=== PATIENT | female | born 1950 | race African-American/Black ===

== ENCOUNTER 2018-12-27 16:56 | Inpatient (IN) | payer OTHER, MEDICAID ==
[~2018-12-27] VITALS: Ht 167.6 cm; Wt 63.5 kg
[~2018-12-27 16:56] MED LIST: ACETAMINOPHEN325 M1 ORAL; AMLODIPINE BESYL5 MG ORAL; BACLOFEN10 MG ORAL; BISACODYL10 M1 RC; COLLAGENASE MC; HIPREX ORAL; LEVAQUIN500 MG ORAL; LEVOFLOXACIN500 MG ORAL; LIDOCAINE VISC100 ML ORAL; LIORESAL20 MG ORAL; MULTIVITAMINS1 EAC2 ORAL; OXYCODONE HCL5 M2 ORAL; OXYCONTIN40 M1 ORAL; PERCOCET 10-321 EACH ORAL; PERCOCET 5-3251 EACH ORAL; ROXICODONE15 MG ORAL; TEGRETOL200 MG ORAL; TEGRETOL200 MG PO; UNOBMED; VANCOMYCIN250 MG/5 M ORAL; VITAMIN D1000 UNI1 ORAL
--- NOTE | 2018-12-27 17:00 | NUR ---
Note undone in EDM - 12/27/18 at 1915 by CIRILO ED Nurse Note: PT BROUGHT IN BY R68 FROM HOME. AOX2 - ORIENTED TO SELF AND PLACE. PER EMS, FAMILY CALLED DUE TO INCREASED ALOC X YESTERDAY. PT UNABLE TO ANSWER QUESTIONS APPROPRAITELY. PT'S VSS. PT PRESENTS WITH PATENT WOODSON CATHETER DRAINING CLOUDY YELLOW URINE.
--- NOTE | 2018-12-27 17:00 | NUR ---
ED Nurse Note: PT BROUGHT IN BY R68 FROM HOME. AOX2 - ORIENTED TO SELF AND PLACE. PER EMS, FAMILY CALLED DUE TO INCREASED ALOC X YESTERDAY. PT UNABLE TO ANSWER QUESTIONS APPROPRAITELY. PT'S VSS. PT PRESENTS WITH PATENT SUPRAPUBIC CATHETER DRAINING CLOUDY YELLOW URINE.
[2018-12-27 17:09] VITALS: BP 124/66
[2018-12-27] MEDS ORDERED: LORazepam Inj 2mg/ml 1ml IV ONE (17:30)
--- NOTE | 2018-12-27 18:03 | NUR ---
ED Nurse Note: LAB AT BEDSIDE FOR BLOOD DRAW.
--- NOTE | 2018-12-27 18:04 | NUR ---
ED Nurse Note: PER VERBAL ORDER FROM DR. LU ATIVAN GIVEN IM INSTEAD OF IV.
--- NOTE | 2018-12-27 18:23 | Diagnostic Imaging Report ---
EXAM: XR Chest, 1 View CLINICAL HISTORY: AMS TECHNIQUE: Frontal view of the chest. COMPARISON: No relevant prior studies available. FINDINGS: Lungs: Reduced lung volumes. Mild left basilar atelectasis. No confluent consolidation. Pleural space: Unremarkable. No pneumothorax. Heart: Unremarkable. Mediastinum: Unremarkable. Bones/joints: No acute fracture. Vasculature: Prominent aortic knob. IMPRESSION: Reduced lung volumes. Mild left basilar atelectasis. No confluent consolidation.
[2018-12-27 18:43] LABS: ANION GAP 9 mmol/L (5-15); BLOOD UREA NITROGEN 21 mg/dL (7-18); CALCIUM 9.5 MG/DL (8.5-10.1); CARBON DIOXIDE 25 MMOL/L (21-32); CHLORIDE 104 MMOL/L (98-107); CREATININE 0.6 MG/DL (0.55-1.30); POTASSIUM 4.4 MMOL/L (3.5-5.1); SODIUM 138 MMOL/L (136-145)
[2018-12-27 18:44] LABS: BASOPHILS % (AUTO) 0.5 % (0.0-2.0); EOSINOPHILS % (AUTO) 2.4 % (0.0-3.0); HEMATOCRIT 30.1 % (37.0-47.0); HEMOGLOBIN 9.6 G/DL (12.0-16.0); LYMPHOCYTES % (AUTO) 16.1 % (20.0-45.0); MEAN CORPUSCULAR VOLUME 81 FL (80-99); PLATELET COUNT 350 K/UL (150-450); RED BLOOD COUNT 3.74 M/UL (4.20-5.40); RED CELL DISTRIBUTION WIDTH 17.5 % (11.6-14.8); WHITE BLOOD COUNT 14.8 K/UL (4.8-10.8)
--- NOTE | 2018-12-27 18:50 | NUR ---
ED Nurse Note: URINE COLLECTED AND SENT TO LAB.
[2018-12-27 18:54] LABS: ALANINE AMINOTRANSFERASE 12 U/L (12-78); ALBUMIN/GLOBULIN RATIO 0.5 (1.0-2.7); ALKALINE PHOSPHATASE 188 U/L (46-116); ASPARTATE AMINO TRANSFERASE 11 U/L (15-37); BILIRUBIN,TOTAL 0.2 MG/DL (0.2-1.0)
--- NOTE | 2018-12-27 19:05 | NUR ---
doris mc [phone]
[2018-12-27 19:06] LABS: APPEARANCE,URINE CLEAR; BILIRUBIN, URINE NEGATIVE (NEGATIVE); COLOR,URINE PALE YELLOW; GLUCOSE, URINE (UA) NEGATIVE (NEGATIVE); KETONES,URINE NEGATIVE (NEGATIVE); LEUKOCYTE ESTERASE ,URINE 3+ (NEGATIVE); NITRITE,URINE NEGATIVE (NEGATIVE); PH,URINE 5 (4.5-8.0); PROTEIN,URINE 2+ (NEGATIVE); UROBILINOGEN,URINE 1 MG/DL (0.0-1.0)
--- NOTE | 2018-12-27 19:15 | NUR ---
ED Nurse Note: Report received from day shift. Knowing Pt needs IV site fro Meds as soon. [facility], will await for the admission orders and paper work. Pt is current fighting with staffs with IV insertion. Pt is VSS, on room air no distress.
--- NOTE | 2018-12-27 19:15 | NUR ---
ED Nurse Note: REPORT GIVEN TO YOLANDA CANNON
--- NOTE | 2018-12-27 20:00 | NUR ---
ED Nurse Note: Pt has stage 2 pressure wound on sacral area, S/P DTI on R heel no open. Cleaned and Pat dry the wounds, wound pictures taken and document. Report wound condition to LAUREN shepard supervisors.
--- NOTE | 2018-12-27 20:26 | Emergency Room Report ---
History of Present Illness General Chief Complaint: Altered Level of Consciousness Source: Family Member, Medical Record, EMS Present Illness HPI 68-year-old female presents ED for evaluation. Patient brought in by EMS from home for increased delirium 1 day. Patient does have dementia but appears to be more confused than baseline. Family told EMS that patient has a superpubic catheter and the urine appears cloudy. States that she was recently treated for a UTI at [place]. Patient normally goes to [facility] but was brought to [place] because of diversion at [facility]. Upon arrival patient is crying, appears confused. Denies chest pain or shortness of breath. No abdominal pain. No fevers or chills. No other aggravating relieving factors. No other associated symptoms Allergies: Coded Allergies: CEPHALEXIN (Verified Allergy, Unknown, 11/19/09) HYDROMORPHONE (Unverified Allergy, Unknown, 12/27/18) INTERFERON BETA-1B (Verified Allergy, Unknown, 11/01/12) COULDN'T WALK AFTER TAKING MEDICATION NITROFURANTOIN (Verified Allergy, Unknown, 11/19/09) SULFA (SULFONAMIDE ANTIBIOTICS) (Unverified Allergy, Unknown, 12/27/18) SULFAMETHOXAZOLE (Verified Allergy, Unknown, 11/19/09) TRIMETHOPRIM (Verified Allergy, Unknown, 11/19/09) Uncoded Allergies: COTRIM (Allergy, Unknown, 12/27/18) Patient History Past Medical History: HTN, asthma, CVA/TIA, dementia Past Surgical History: none Pertinent Family History: none Social History: Denies: smoking, alcohol use, drug use Now: No Immunizations: UTD Reviewed Nursing Documentation: PMH: Agreed; PSxH: Agreed Nursing Documentation-PMH Past Medical History: No History, Except For Hx Cardiac Problems: Yes Hx Hypertension: Yes Hx Asthma: Yes Hx Cancer: No Hx Cerebrovascular Accident: Yes Hx Multiple Sclerosis: Yes Hx Cerebral Palsy: Yes Hx Weakness: Yes - BLE AND LEFT ARM Review of Systems All Other Systems: limited Physical Exam Vital Signs Date Time Temp Pulse Resp B/P (MAP) Pulse Ox O2 Delivery O2 Flow Rate FiO2 12/27/18 16:32 65 16 154/86 Room Air 12/27/18 17:09 98.0 100 Sp02 EP Interpretation: reviewed, normal General Appearance: GCS 15, non-toxic, mild distress, other - confused Head: normocephalic Eyes: bilateral eye normal inspection, bilateral eye PERRL ENT: hearing grossly normal, normal pharynx, no angioedema, normal voice Neck: full range of motion, supple/symm/no masses Respiratory: chest non-tender, lungs clear, crackles, speaking full sentences Cardiovascular #1: regular rate, rhythm, no edema Gastrointestinal: normal bowel sounds, non tender, soft, non-distended, no guarding, no rebound, other - suprapubic catheter Rectal: deferred Genitourinary: no CVA tenderness Musculoskeletal: normal inspection Neurologic: other - delerium Psychiatric: other - delerium Skin: normal inspection Lymphatic: normal inspection Medical Decision Making Diagnostic Impression: Primary Impression: Encephalopathy Additional Impressions: Delirium Acute UTI (urinary tract infection) ER Course Hospital Course 68-year-old female presents with increased delirium, cloudy urine. History of UTI Differential diagnoses include: Pneumonia, UTI, sepsis, dehydration Clinical course Patient placed on stretcher. On campus monitor with stable vitals are ED course. After initial history and physical, I ordered labs, IV fluids, EKG, chest x-ray, blood cultures, UA. Labs - electrolytes ok, noted leukocytosis, lactic ok, UA + bacteria CXR - bibasilar atelectasis IV fluids given. Abx given. Case discussed with Dr Dunn and they agreed to admit patient to their service for further care and support I feel this is a highly complex case requiring extensive working including EKG/ Rhythm strip, Xray/CT/US, Blood/urine lab work, repeat exams while in ED, and administration of strong opiates/narcotics for pain control, admission to hospital or close patient follow up. Diagnosis - encephalopathy, delirium, acute UTI Patient admitted to floor in serious condition Labs Test 12/27/18 18:15 12/27/18 18:50 White Blood Count 14.8 K/UL (4.8-10.8) Red Blood Count 3.74 M/UL (4.20-5.40) Hemoglobin 9.6 G/DL (12.0-16.0) Hematocrit 30.1 % (37.0-47.0) Mean Corpuscular Volume 81 FL (80-99) Mean Corpuscular Hemoglobin 25.7 PG (27.0-31.0) Mean Corpuscular Hemoglobin Concent 31.9 G/DL (32.0-36.0) Red Cell Distribution Width 17.5 % (11.6-14.8) Platelet Count 350 K/UL (150-450) Mean Platelet Volume 6.4 FL (6.5-10.1) Neutrophils (%) (Auto) 78.0 % (45.0-75.0) Lymphocytes (%) (Auto) 16.1 % (20.0-45.0) Monocytes (%) (Auto) 3.0 % (1.0-10.0) Eosinophils (%) (Auto) 2.4 % (0.0-3.0) Basophils (%) (Auto) 0.5 % (0.0-2.0) Sodium Level 138 MMOL/L (136-145) Potassium Level 4.4 MMOL/L (3.5-5.1) Chloride Level 104 MMOL/L (98-107) Carbon Dioxide Level 25 MMOL/L (21-32) Anion Gap 9 mmol/L (5-15) Blood Urea Nitrogen 21 mg/dL (7-18) Creatinine 0.6 MG/DL (0.55-1.30) Estimat Glomerular Filtration Rate > 60 mL/min (>60) Glucose Level 93 MG/DL (74-106) Lactic Acid Level 0.80 mmol/L (0.4-2.0) Calcium Level 9.5 MG/DL (8.5-10.1) Total Bilirubin 0.2 MG/DL (0.2-1.0) Aspartate Amino Transf (AST/SGOT) 11 U/L (15-37) Alanine Aminotransferase (ALT/SGPT) 12 U/L (12-78) Alkaline Phosphatase 188 U/L (46-116) Pro-B-Type Natriuretic Peptide 106 pg/mL (0-125) Total Protein 9.0 G/DL (6.4-8.2) Albumin 3.0 G/DL (3.4-5.0) Globulin 6.0 g/dL Albumin/Globulin Ratio 0.5 (1.0-2.7) Urine Color Pale yellow Urine Appearance Clear Urine pH 5 (4.5-8.0) Urine Specific [place] 1.015 (1.005-1.035) Urine Protein 2+ (NEGATIVE) Urine Glucose (UA) Negative (NEGATIVE) Urine Ketones Negative (NEGATIVE) Urine Blood 5+ (NEGATIVE) Urine Nitrite Negative (NEGATIVE) Urine Bilirubin Negative (NEGATIVE) Urine Urobilinogen 1 MG/DL (0.0-1.0) Urine Leukocyte Esterase 3+ (NEGATIVE) Urine RBC 2-4 /HPF (0 - 2) Urine WBC 5-10 /HPF (0 - 2) Urine Squamous Epithelial Cells Few /LPF (NONE/OCC) Urine Amorphous Sediment Few /LPF (NONE) Urine Bacteria Few /HPF (NONE) Urine Yeast Few /HPF (NONE) Chest X-Ray Diagnostic Results Chest X-Ray Diagnostic Results : Chest X-Ray Ordered: Yes # of Views/Limited/Complete: 1 View Indication: Other EP Interpretation: Yes Interpretation: no pneumothorax, other - bibasilar atelectasis Impression: Other - ?PNA Electronically Signed by: Electronically signed by Teofilo Carroll MD Last Vital Signs Date Time Temp Pulse Resp B/P (MAP) Pulse Ox O2 Delivery O2 Flow Rate FiO2 12/27/18 17:09 98.0 74 22 124/66 100 Room Air Status: improved Disposition: ADMITTED INPATIENT Condition: Serious Referrals: [facility],REFERRING (PCP) Teofilo Carroll MD Dec 27, 2018 20:26
[2018-12-27 20:30] VITALS: BP 132/77
[2018-12-27 20:45] VITALS: BP 105/66
--- NOTE | 2018-12-27 20:50 | NUR ---
ED Nurse Note: Bedside report given to RN Robbie. Pt belongings and skin condition report gven to RN. Pt is current sleeping, VSS, on room air no distress.
--- NOTE | 2018-12-27 22:02 | NUR ---
NURSE NOTES: NURSE NOTES: Received patient from ER at 2044 with dx of altered mental status and UTI under Dr. Dunn. Report received from YOLANDA Patino. Patient is alert and oriented x2. Patient is lethargic. Room air. Vital signs is within normal limit. Sacral stage 3, and bilateral heels dti noted. P200 mattress order was placed. Bilateral heels floating on pillow. Patient has a right suprapubic cath, cloudy urine noted. Abdomen is slightly distended, discoloration noted on the perineal area. Patient has a left hand 22g IV running levoflaxacin 750mg at 150ml/hr. Admission ordered received from . Patient's son called regarding patient and son was updated on patient's condition. Son will come see patient later. Bed in the lowest position, bed alarms active, side rails up x2, call light is within reach. Will continue to monitor.
[2018-12-27] MEDS: D5NS 1,000 ML IV SCH (22:58)
--- NOTE | 2018-12-27 23:00 | NUR ---
NURSE NOTES: Pt admitted from Er in stable condition, vitals stable, room air. Pt admitted with Dx of ALC and dehydration. Pt mumbles and gowns, unable to talk in full sentences. Pt is drowsy. Report received from Sukumar MCGARRY RN. Per Sukumar 2mg of Ativan was given IM at ER. Initial physical assessment performed, pt's upper and lower extremities contracted, Pt is bed bound, pt has sacral wound, right and left heel DTI.Bilta heels floated on a pillow. Pt has skin breakdown on the folds of her arms, legs and groin. Pt has Hx of MRSA and VRE. Pt is on contact isolation. Dr. Dunn was called for admitting orders, Dr. Llamas answered the phone and gave admitting orders. D5 NS running at 75ml/hr. Pt is at risk for fall. Fall precation implemented. Bed locked low in position,side rails up and call light within reach. Bed alarm on. Pt will be monitored, Yoly Gonzalez RN ( preceptee) will be assisting in the care of this patient.
[2018-12-28 00:25] VITALS: BP 149/71
--- NOTE | 2018-12-28 02:00 | NUR ---
NURSE NOTES: Pt is on P200 matrass, bilat heels floated on pillows.
--- NOTE | 2018-12-28 02:39 | NUR ---
NURSE NOTES: Wound care for sacral area and bilateral heels. Sacral wound was cleaned with normal saline, then applied hydrogel and octofoam. Barrier film and octofoam were applied to bilateral heels. Right heel DTI measured 2x3cm, left heel DTI measured 2x2cm. Sacral wound measured [id number]. Unable to upload left heel pictures due to computer technical difficulty. Addendum: 12/28/18 at 0554 by Yoly Gonzalez RN Left heel and abdominal fold pictures were uploaded.
[2018-12-28 04:00] VITALS: BP 104/68
--- NOTE | 2018-12-28 04:30 | NUR ---
NURSE NOTES: Pt was turned and cleaned. Pt was given 4 cups of pudding with HOB elevated. Pt ate well.
[2018-12-28 07:09] LABS: BASOPHILS % (AUTO) 0.2 % (0.0-2.0); EOSINOPHILS % (AUTO) 2.5 % (0.0-3.0); HEMATOCRIT 30.2 % (37.0-47.0); HEMOGLOBIN 9.5 G/DL (12.0-16.0); LYMPHOCYTES % (AUTO) 17.3 % (20.0-45.0); MEAN CORPUSCULAR VOLUME 82 FL (80-99); PLATELET COUNT 322 K/UL (150-450); RED BLOOD COUNT 3.67 M/UL (4.20-5.40); RED CELL DISTRIBUTION WIDTH 17.8 % (11.6-14.8); WHITE BLOOD COUNT 8.8 K/UL (4.8-10.8)
--- NOTE | 2018-12-28 07:26 | NUR ---
HAND-OFF: Report given to YOLANDA Lomeli. Patient is bed, resting.
[2018-12-28 08:00] VITALS: BP 163/81
--- NOTE | 2018-12-28 08:00 | NUR ---
NURSE NOTES: Received patient in bed, resting and alert to name, place and year. Patient denies pain, no signs of respiratory distress. IV intact. Subprapubic catheter intact. Bed in lowest position, call light within reach. Will continue to monitor.
[2018-12-28 08:28] LABS: ANION GAP 10 mmol/L (5-15); BLOOD UREA NITROGEN 17 mg/dL (7-18); CALCIUM 8.7 MG/DL (8.5-10.1); CARBON DIOXIDE 24 MMOL/L (21-32); CHLORIDE 107 MMOL/L (98-107); CREATININE 0.7 MG/DL (0.55-1.30); POTASSIUM 3.9 MMOL/L (3.5-5.1); SODIUM 141 MMOL/L (136-145)
[2018-12-28] MEDS: Vitamin D 1000 IU Tab ORAL SCH (08:43)
--- NOTE | 2018-12-28 08:49 | Diagnostic Imaging Report ---
EXAM: XR Chest, 1 View CLINICAL HISTORY: ALOC TECHNIQUE: Frontal view of the chest. COMPARISON: Chest x-ray, 12/27/18 2796 FINDINGS: Lungs: Hypoventilatory lungs. Bibasilar lung atelectasis. Pleural space: Unremarkable. No pneumothorax. Heart: Cardiomegaly. Mediastinum: Unremarkable. Bones/joints: Unremarkable. IMPRESSION: Hypoventilatory lungs. Bibasilar lung atelectasis. No significant change from prior study.
[2018-12-28] MEDS ORDERED: D5NS 1000ml IV ONE (09:10)
--- NOTE | 2018-12-28 11:34 | NUR ---
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 ACUTE UTI . DELIRIUM VS: BP 154/86, P 65, T 98.0, RR 22, SpO2 100 WBC 14.8, RBC 3.74, Hgb 9.6, Hct 30.1, BUN 21. URINE BLOOD 5+, URINE YEAST FEW CXR IMPRESSION: Reduced lung volumes. Mild left basilar atelectasis. IS:NS x1L IV LORAZEPAM 1mg IV LEVOFLOXACIN 150ml IVPB ADMITTED TO MED/SURG DCP: RETURN HOME
[2018-12-28 12:00] VITALS: BP 134/66
[2018-12-28] MEDS: D5NS 1,000 ML IV SCH (13:39)
--- NOTE | 2018-12-28 15:20 | Consultation ---
History of Present Illness General Date patient seen: Dec 28, 2018 Chief Complaint: Altered Level of Consciousness Present Illness HPI 68 year old female with multiple medical comorbidities who presented to [facility] after family noted altered mental status. At home with family when more delirium. Has suprapubic catheter and family noted more cloudy. In ED noted to have leukocytosis and was admitted for medical care and management. on admission noted to have large sacral decubitus and buttock wounds requiring care. surgery called to evaluate. patient seen, chart reviewed, patient examined. photos taken. Allergies: Coded Allergies: CEPHALEXIN (Verified Allergy, Unknown, 11/19/09) HYDROMORPHONE (Unverified Allergy, Unknown, 12/27/18) INTERFERON BETA-1B (Verified Allergy, Unknown, 11/01/12) COULDN'T WALK AFTER TAKING MEDICATION NITROFURANTOIN (Verified Allergy, Unknown, 11/19/09) SULFA (SULFONAMIDE ANTIBIOTICS) (Unverified Allergy, Unknown, 12/27/18) SULFAMETHOXAZOLE (Verified Allergy, Unknown, 11/19/09) TRIMETHOPRIM (Verified Allergy, Unknown, 11/19/09) Uncoded Allergies: COTRIM (Allergy, Unknown, 12/27/18) Medication History Scheduled Amlodipine Besylate* (Amlodipine Besylate*), 5 MG ORAL BID, (Reported) Baclofen (Baclofen), 10 MG ORAL THREE TIMES A DAY Baclofen* (Baclofen*), 20 MG ORAL THREE TIMES A DAY, (Reported) Bisacodyl (Bisacodyl), 10 MG RC DAILY, (Reported) Cholecalciferol (Vitamin D3)* (Vitamin D*), 1,000 UNIT ORAL DAILY, (Reported) Collagenase Clostridium Hist. (Collagenase), 1 GM MC DAILY, (Reported) Levofloxacin* (Levaquin*), 500 MG ORAL DAILY Multivitamins* (Multivitamins*), 1 TAB ORAL DAILY, (Reported) Vancomycin HCl (Vancomycin HCl), 500 MG ORAL FOUR TIMES A DAY [Hiprex], 1 TAB ORAL BID, (Reported) Scheduled PRN Acetaminophen* (Acetaminophen 325MG Tablet*), 650 MG ORAL Q4H PRN Oxycodone Hcl* (Oxycodone Hcl*), 5 MG ORAL Q4H PRN for For Pain, (Reported) Oxycodone Hcl/Acetaminophen 10-325 Mg Tablet (Percocet 10-325 Mg Tablet*), 1 TAB ORAL Q4H PRN Patient History Limited by: medical condition History Provided By: Medical Record, PMD Healthcare decision maker Resuscitation status Full Code Advanced Directive on File Past Medical/Surgical History Past Medical/Surgical History: (1) Lower urinary tract infectious disease (2) SEPSIS (3) [id number] (4) Lower urinary tract infectious disease (5) [id number] (6) Lower urinary tract infectious disease (7) catheter malfunction (8) uti (9) Lower urinary tract infectious disease (10) neuropathic pain (11) musculoskeletal pain (12) Septicemia (13) Dehydration (14) Constipation (15) Dehydration (16) Pyuria (17) Weakness generalized (18) Multiple sclerosis (19) Suprapubic catheter (20) Trigeminal neuralgia pain (21) HYPOKALEMIA (22) Fever (23) suprapubic cathether malfunction (24) Abdominal pain (25) Abdominal pain (26) Altered mental state (27) Delirium (28) Encephalopathy (29) Acute UTI (urinary tract infection) Review of Systems ROS Narrative cannot obtain given medical condition Physical Exam General Appearance: no apparent distress, confused Lines, tubes and drains: peripheral HEENT: mucous membranes moist Neck: normal inspection Respiratory/Chest: no respiratory distress, no accessory muscle use Cardiovascular/Chest: normal rate, regular rhythm Abdomen: soft, no organomegaly, no mass, other Extremities: non-tender, normal inspection Skin Exam: other Neurologic: alert Last 24 Hour Vital Signs Date Time Temp Pulse Resp B/P (MAP) Pulse Ox O2 Delivery O2 Flow Rate FiO2 12/28/18 12:00 97.2 91 20 134/66 (88) 97 12/28/18 09:00 Room Air 12/28/18 08:43 89 163/81 12/28/18 08:00 98.4 89 18 163/81 (108) 97 12/28/18 04:00 97.2 78 18 104/68 (80) 99 12/28/18 00:36 Room Air 12/28/18 00:25 97.8 82 19 149/71 (97) 100 12/27/18 21:00 98.0 80 22 132/77 100 Room Air 12/27/18 20:45 98.0 80 24 105/66 (79) 99 12/27/18 20:30 98.0 80 22 132/77 100 Room Air 12/27/18 17:09 98.0 74 22 124/66 100 Room Air 12/27/18 17:07 74 22 Room Air 12/27/18 16:32 65 16 154/86 Room Air Intake and Output 12/27/18 12/28/18 19:00 07:00 Intake Total 600 ml Output Total 950 ml Balance -350 ml Intake IV Total 600 ml Output Urine Total 950 ml # Voids 1 # Bowel Movements 1 Laboratory Tests Test 12/27/18 18:15 12/27/18 18:50 12/28/18 05:10 White Blood Count 14.8 K/UL (4.8-10.8) H 8.8 K/UL (4.8-10.8) Red Blood Count 3.74 M/UL (4.20-5.40) L 3.67 M/UL (4.20-5.40) L Hemoglobin 9.6 G/DL (12.0-16.0) L 9.5 G/DL (12.0-16.0) L Hematocrit 30.1 % (37.0-47.0) L 30.2 % (37.0-47.0) L Mean Corpuscular Volume 81 FL (80-99) 82 FL (80-99) Mean Corpuscular Hemoglobin 25.7 PG (27.0-31.0) L 25.8 PG (27.0-31.0) L Mean Corpuscular Hemoglobin Concent 31.9 G/DL (32.0-36.0) L 31.4 G/DL (32.0-36.0) L Red Cell Distribution Width 17.5 % (11.6-14.8) H 17.8 % (11.6-14.8) H Platelet Count 350 K/UL (150-450) 322 K/UL (150-450) Mean Platelet Volume 6.4 FL (6.5-10.1) L 6.8 FL (6.5-10.1) Neutrophils (%) (Auto) 78.0 % (45.0-75.0) H 76.0 % (45.0-75.0) H Lymphocytes (%) (Auto) 16.1 % (20.0-45.0) L 17.3 % (20.0-45.0) L Monocytes (%) (Auto) 3.0 % (1.0-10.0) 4.0 % (1.0-10.0) Eosinophils (%) (Auto) 2.4 % (0.0-3.0) 2.5 % (0.0-3.0) Basophils (%) (Auto) 0.5 % (0.0-2.0) 0.2 % (0.0-2.0) Sodium Level 138 MMOL/L (136-145) 141 MMOL/L (136-145) Potassium Level 4.4 MMOL/L (3.5-5.1) 3.9 MMOL/L (3.5-5.1) Chloride Level 104 MMOL/L (98-107) 107 MMOL/L (98-107) Carbon Dioxide Level 25 MMOL/L (21-32) 24 MMOL/L (21-32) Anion Gap 9 mmol/L (5-15) 10 mmol/L (5-15) Blood Urea Nitrogen 21 mg/dL (7-18) H 17 mg/dL (7-18) Creatinine 0.6 MG/DL (0.55-1.30) 0.7 MG/DL (0.55-1.30) Estimat Glomerular Filtration Rate > 60 mL/min (>60) > 60 mL/min (>60) Glucose Level 93 MG/DL (74-106) 147 MG/DL (74-106) H Lactic Acid Level 0.80 mmol/L (0.4-2.0) Calcium Level 9.5 MG/DL (8.5-10.1) 8.7 MG/DL (8.5-10.1) Total Bilirubin 0.2 MG/DL (0.2-1.0) Aspartate Amino Transf (AST/SGOT) 11 U/L (15-37) L Alanine Aminotransferase (ALT/SGPT) 12 U/L (12-78) Alkaline Phosphatase 188 U/L (46-116) H Pro-B-Type Natriuretic Peptide 106 pg/mL (0-125) Total Protein 9.0 G/DL (6.4-8.2) H Albumin 3.0 G/DL (3.4-5.0) L Globulin 6.0 g/dL Albumin/Globulin Ratio 0.5 (1.0-2.7) L Urine Color Pale yellow Urine Appearance Clear Urine pH 5 (4.5-8.0) Urine Specific [place] 1.015 (1.005-1.035) Urine Protein 2+ (NEGATIVE) H Urine Glucose (UA) Negative (NEGATIVE) Urine Ketones Negative (NEGATIVE) Urine Blood 5+ (NEGATIVE) H Urine Nitrite Negative (NEGATIVE) Urine Bilirubin Negative (NEGATIVE) Urine Urobilinogen 1 MG/DL (0.0-1.0) H Urine Leukocyte Esterase 3+ (NEGATIVE) H Urine RBC 2-4 /HPF (0 - 2) H Urine WBC 5-10 /HPF (0 - 2) H Urine Squamous Epithelial Cells Few /LPF (NONE/OCC) Urine Amorphous Sediment Few /LPF (NONE) H Urine Bacteria Few /HPF (NONE) Urine Yeast Few /HPF (NONE) H Microbiology Date/Time Source Procedure Growth Status 12/27/18 18:50 Urine,Clean Catch Urine Culture - Preliminary NO GROWTH Resulted Height (Feet): 5 Height (Inches): 6.00 Weight (Pounds): 140 Medications Current Medications Medications (Trade) Dose Ordered Sig/Fransisca Route PRN Reason Start Time Stop Time Status Last Admin Dose Admin Acetaminophen (Tylenol) 650 mg Q4H PRN ORAL Mild Pain/Temp > 100.5 12/27/18 21:45 01/26/19 21:44 Amlodipine Besylate (Norvasc) 5 mg BID ORAL 12/28/18 09:00 01/27/19 08:59 12/28/18 08:43 Baclofen (Lioresal) 20 mg THREE TIMES A DAY ORAL 12/28/18 09:00 01/27/19 08:59 12/28/18 13:37 Bisacodyl (Dulcolax) 10 mg DAILYPRN PRN RECTAL Constipation 12/27/18 21:45 01/26/19 21:44 Collagenase (Santyl) 1 applic DAILY TOPIC 12/28/18 09:00 01/27/19 08:59 12/28/18 13:39 Dextrose/Sodium Chloride 1,000 ml @ 75 mls/hr [id number] IV 12/27/18 21:45 01/26/19 21:44 12/28/18 13:39 Levofloxacin 150 ml @ 100 mls/hr Q24H IVPB 12/28/18 20:00 01/04/19 19:59 Multivitamins (Multivitamins) 1 tab DAILY ORAL 12/28/18 09:00 01/27/19 08:59 12/28/18 08:43 Vitamin D (Vitamin D) 1,000 intlu DAILY ORAL 12/28/18 09:00 01/27/19 08:59 12/28/18 08:43 Assessment/Plan Problem List: (1) Sacral decubitus ulcer, stage IV Assessment & Plan: Patient presented on admission with resolving full thickness stage 4 sacral decubitus ulcer. central portion full thickness with depth of 1cm approximately 5cm x 6cm in size and forming granulation tissue. periwound with skin breakdown and larger area of partial thickness around the left and right buttock in periwound. no drainage. no foul odor. seems to have been receiving care. heels soft and non tender Tx plan: wash sacral wound with NS daily, apply hydrogel and gauze to central portion, apply skin protectant to periwound, and cover with foam dressing daily opifoam to heels off load heels with pillow turn q2h nutritional support air soft pressure release mattress thank you will follow with recs. ICD Codes: L89.154 - Pressure ulcer of sacral region, stage 4 SNOMED: 321413030, 095269657 (2) Delirium ICD Codes: R41.0 - Disorientation, unspecified SNOMED: 3157615 (3) Encephalopathy ICD Codes: G93.40 - Encephalopathy, unspecified SNOMED: 36183840 (4) Acute UTI (urinary tract infection) Assessment & Plan: UA noted leukocytosis resolving cont with ABX ICD Codes: N39.0 - Acute UTI (urinary tract infection) SNOMED: 569226127 (5) Constipation ICD Codes: K59.00 - Constipation SNOMED: 83852171 (6) Dehydration (7) Dehydration ICD Codes: E86.0 - Dehydration SNOMED: 62988185 (8) Fever (9) Pyuria ICD Codes: N39.0 - Pyuria SNOMED: 0040005 (10) Septicemia (11) Weakness generalized ICD Codes: R53.1 - Weakness generalized SNOMED: 15059919 (12) Altered mental state ICD Codes: R41.82 - Altered mental status, unspecified SNOMED: 170310289 (13) [id number] (14) Multiple sclerosis ICD Codes: G35 - Multiple sclerosis SNOMED: 97345247 (15) Abdominal pain ICD Codes: R10.9 - Unspecified abdominal pain SNOMED: 24308287 (16) Abdominal pain ICD Codes: R10.9 - Unspecified abdominal pain SNOMED: 78869796 (17) [id number] (18) Suprapubic catheter ICD Codes: Z93.59 - Suprapubic catheter SNOMED: 610328980 (19) Trigeminal neuralgia pain ICD Codes: G50.0 - Trigeminal neuralgia pain SNOMED: 63765672 (20) HYPOKALEMIA (21) Lower urinary tract infectious disease (22) Lower urinary tract infectious disease (23) Lower urinary tract infectious disease (24) Lower urinary tract infectious disease (25) SEPSIS (26) catheter malfunction (27) musculoskeletal pain (28) neuropathic pain (29) suprapubic cathether malfunction (30) uti Niels Carroll Dec 28, 2018 15:20
[2018-12-28 16:00] VITALS: BP 142/86
--- NOTE | 2018-12-28 16:12 | History & Physical ---
History and Physical History & Physicial #[id number] UTI SPC hx of HTn CVA/TIA Dementia wounds Judie Llamas DO Dec 28, 2018 16:12
--- NOTE | 2018-12-28 19:15 | History and Physical Report ---
DATE OF ADMISSION: 12/27/2018 REASON FOR ADMISSION: Shortness of breath, pneumonia. HISTORY OF PRESENT ILLNESS: The patient was admitted through the emergency room last evening, brought in by her family from home with altered mental status x1 day. The patient seemed more confused to the family and they became concerned. She has a history of a suprapubic catheter. Her urine appeared cloudy. She had been treated at [facility] for urinary tract infection and was placed on Levaquin 500 mg. Cultures are unknown. She is a [facility] patient. No reports of nausea, vomiting, or diarrhea. She is not ambulatory. Multiple skin wounds are noted. She has multiple drug allergies document in electronic medical record. PAST MEDICAL HISTORY: Hypertension, asthma, CVA, transient ischemic attack, and dementia. PAST SURGICAL HISTORY: None. SOCIAL HISTORY: Negative for tobacco, alcohol, drugs. MEDICATIONS: Pre-hospital medications and present medications were reviewed, reconciled, and documented in the electronic medical record by dose, frequency, and route. FAMILY HISTORY: Negative as well. PHYSICAL EXAMINATION: GENERAL: She is alert. She is oriented. She is in no acute respiratory distress. She is currently afebrile. VITAL SIGNS: Her pulse is 91, respirations 20, blood pressure 134/66. HEENT: Normocephalic and atraumatic. Oropharynx is moist. Nasal mucosa moist. NECK: Supple without lymphadenopathy. LUNGS: Decreased at the bases. No wheeze present. HEART: Regular rate and rhythm without a murmur. ABDOMEN: Soft, obese, nontender. Positive bowel sounds. Suprapubic catheter in place. EXTREMITIES: Positive edema. NEUROLOGIC: She is communicating appropriately LABORATORY AND DIAGNOSTIC DATA: Her initial white count was 14.8 now down to 8.8, hemoglobin 9.5, platelets are 322. Her sodium is 141, potassium 3.8, chloride 107, bicarb 24, BUN 17, creatinine 0.7, glucose is 149. Urinalysis is positive for leukocyte esterase. A chest x-ray was obtained in the emergency room showing atelectasis without evidence of pneumonia. A repeat film was performed today without significant change. EKG has not been performed here in the facility and her urine culture is currently with no growth. ASSESSMENT AND PLAN: Urinary tract infection, hypertension, CVA/transient ischemic attack, dementia, altered mental status, most likely due to underlying infection. The patient has been given IV Levaquin at 750 mg daily in the emergency room. Urine culture is pending at this time. White count has responded. She remains afebrile. Gentle IV fluids. Home medications resumed. Aspiration precautions. O2 as needed to maintain saturations greater than 92%. Chest x-ray does not appear for overt infection and pneumonia. We will monitor closely and we will advance her diet as tolerated. Judie Llamas D.O. DR: Sarah JOB#: [id number] CC: GARY
--- NOTE | 2018-12-28 19:22 | NUR ---
HAND-OFF: Report given to YOLANDA Cordoba.
[2018-12-28 19:55] VITALS: BP 156/85
--- NOTE | 2018-12-28 20:00 | NUR ---
NURSE NOTES: Dr. Llamas made aware of patient's increased heart rate and blood pressure. Patient very restless and keeps calling for "Help" "Hello" and "Nurse". When RN and TRAFFIC CONTROL SPECIALIST goes to room, patient keeps going off saying "some man came in earlier and he might kill/strangle me." Also, patient keeps repeating "Someone is talking and having sex on TV." Offered patient to turn off TV or change channel, patient goes off to a different topic regarding the windows. Unable to redirect patient and keeps changing concerns and topics. When asked what can we do to help her, she stated, "No need for help right now." Addendum: 12/28/18 at 2039 by GALLITO ANGULO RN RN patient contineus to yell "Hello" but she just keeps saying "There's a man over there." Difficult to reassure and comfort patient with safety.RN continues to ask what she needs, and how can we help her, but she just said, "Forget about it." Offered water, snacks, and repositioned. When RN leaves room, patient again continues to scream "Hello"
--- NOTE | 2018-12-28 20:26 | NUR ---
NURSE NOTES: Attempted to give seroquel to patient as ordered d/t agitation. Patient continued to refuse, explained importance of medication but patient keep saying "No, no medication." Will continue to monitor.
[2018-12-29] VITALS: BP 129/74
[2018-12-29] MEDS: D5NS 1,000 ML IV SCH (01:27)
[2018-12-29 04:00] VITALS: BP 138/79
--- NOTE | 2018-12-29 04:19 | NUR ---
NURSE NOTES: Patient has been continuously calling "Hello" and "Nurse" all night. When nurse goes in the room, she insists that there are people behind her bed and outside the window (4th floor). Attempted to reorient patient that there were no other people in her room and only nurses entered her room through the night. She then stated that the "body" or people that she sees behind her bed and the window "move away when nurses come in." Patient is difficult to reorient. Kept safe environment, repositioned, and offered PO fluids at this time.
[2018-12-29] MEDS ORDERED: Haloperidol 5mg/ml Inj IM PRN ×3 (07:08→07:15)
--- NOTE | 2018-12-29 07:10 | NUR ---
NURSE NOTES: Dr. Llamas made aware of VRE rectum +. Also made aware of patient's delirious behavior all throughout the shift. Received order for Psych consult with Dr. Byrd and fransico magallanes.
[2018-12-29 07:12] LABS: BASOPHILS % (AUTO) 0.7 % (0.0-2.0); EOSINOPHILS % (AUTO) 2.2 % (0.0-3.0); HEMATOCRIT 30.5 % (37.0-47.0); HEMOGLOBIN 9.5 G/DL (12.0-16.0); LYMPHOCYTES % (AUTO) 23.4 % (20.0-45.0); MEAN CORPUSCULAR VOLUME 81 FL (80-99); MONOCYTES % (AUTO) 4.2 % (1.0-10.0); NEUTROPHILS % (AUTO) 69.4 % (45.0-75.0); PLATELET COUNT 377 K/UL (150-450); RED BLOOD COUNT 3.76 M/UL (4.20-5.40); RED CELL DISTRIBUTION WIDTH 17.7 % (11.6-14.8)
--- NOTE | 2018-12-29 07:23 | NUR ---
HAND-OFF: Report given to Kenzie GUERRERO.
[2018-12-29 07:24] LABS: ALANINE AMINOTRANSFERASE 18 U/L (12-78); ALBUMIN 2.8 G/DL (3.4-5.0); ALBUMIN/GLOBULIN RATIO 0.5 (1.0-2.7); ALKALINE PHOSPHATASE 170 U/L (46-116); ANION GAP 10 mmol/L (5-15); ASPARTATE AMINO TRANSFERASE 13 U/L (15-37); BILIRUBIN,TOTAL 0.2 MG/DL (0.2-1.0); BLOOD UREA NITROGEN 8 mg/dL (7-18); CALCIUM 9.3 MG/DL (8.5-10.1); CARBON DIOXIDE 27 MMOL/L (21-32); CHLORIDE 105 MMOL/L (98-107); CREATININE 0.7 MG/DL (0.55-1.30); POTASSIUM 4.3 MMOL/L (3.5-5.1); SODIUM 141 MMOL/L (136-145)
[2018-12-29 08:00] VITALS: BP 152/76
--- NOTE | 2018-12-29 08:03 | NUR ---
NURSE NOTES: Patient received awake in bed. Repetitively stating words, alert and oriented x1-2. Breathing unlabored on room air. No signs of pain observed. Bed locked in lowest position. Call light placed within reach, will continue to monitor.
[2018-12-29] MEDS: Vitamin D 1000 IU Tab ORAL SCH (08:41)
--- NOTE | 2018-12-29 10:47 | Initial Psychiatric Evaluation ---
Psychiatry Consultation Psychiatry Consultation Chief Complaint: Altered Level of Consciousness History of Present Illness: 68 yo female with hx of CVA and UTI altered mental status. per the family,the patient is more confused. the pt was unable to provide hx. the pt was soft spoken and at some point the pt was whispering. the pt is depressed and anxious. the pt was hallucinating. the pt stated "they are here to get me." the pt has memory impairment and is disoriented. Allergies: Coded Allergies: CEPHALEXIN (Verified Allergy, Unknown, 11/19/09) HYDROMORPHONE (Unverified Allergy, Unknown, 12/27/18) INTERFERON BETA-1B (Verified Allergy, Unknown, 11/01/12) COULDN'T WALK AFTER TAKING MEDICATION NITROFURANTOIN (Verified Allergy, Unknown, 11/19/09) SULFA (SULFONAMIDE ANTIBIOTICS) (Unverified Allergy, Unknown, 12/27/18) SULFAMETHOXAZOLE (Verified Allergy, Unknown, 11/19/09) TRIMETHOPRIM (Verified Allergy, Unknown, 11/19/09) Uncoded Allergies: COTRIM (Allergy, Unknown, 12/27/18) Past Psychiatric History: anxiety no psych hospitalization Medication History Scheduled Amlodipine Besylate* (Amlodipine Besylate*), 5 MG ORAL BID, (Reported) Baclofen (Baclofen), 10 MG ORAL THREE TIMES A DAY Baclofen* (Baclofen*), 20 MG ORAL THREE TIMES A DAY, (Reported) Bisacodyl (Bisacodyl), 10 MG RC DAILY, (Reported) Cholecalciferol (Vitamin D3)* (Vitamin D*), 1,000 UNIT ORAL DAILY, (Reported) Collagenase Clostridium Hist. (Collagenase), 1 GM MC DAILY, (Reported) Levofloxacin* (Levaquin*), 500 MG ORAL DAILY Multivitamins* (Multivitamins*), 1 TAB ORAL DAILY, (Reported) Vancomycin HCl (Vancomycin HCl), 500 MG ORAL FOUR TIMES A DAY [Hiprex], 1 TAB ORAL BID, (Reported) Scheduled PRN Acetaminophen* (Acetaminophen 325MG Tablet*), 650 MG ORAL Q4H PRN Oxycodone Hcl* (Oxycodone Hcl*), 5 MG ORAL Q4H PRN for For Pain, (Reported) Oxycodone Hcl/Acetaminophen 10-325 Mg Tablet (Percocet 10-325 Mg Tablet*), 1 TAB ORAL Q4H PRN Patient History Limited by: medical condition History Provided By: Medical Record Objective Data Height (Feet): 5 Height (Inches): 6.00 Weight (Pounds): 140 Appearance: disheveled Behavior Mannerisms: good eye contact Affect: flat Mood: anxious Thought Process: coherent, illogical Thought Content: delusions (specify), paranoia Perceptual Disturbances: hallucinations, auditory Suicidal Ideation: not present Assessment/Plan Status: not improved Treatment Plan: dc seroquel start risperdal 2mg po qhs Diagnosis [place] I: acute metabolic encephalopathy Christie Byrd MD Dec 29, 2018 10:47
[2018-12-29] MEDS ORDERED: LORazepam Inj 2mg/ml 1ml IM PRN (11:00)
--- NOTE | 2018-12-29 11:46 | NUR ---
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 ACUTE UTI . DELIRIUM VS: BP 152/76, P 119, T 98.2, RR 21, SpO2 98 RBC 3.76, Hgb 9.5, Hct 30.5 IS:SEROQUEL 25mg NORVASC 5mg LIORESAL 20mg D5/NS x1L IV MED/SURG STATUS
[2018-12-29 12:00] VITALS: BP 146/67
--- NOTE | 2018-12-29 14:41 | Surgery Progress Note ---
Surgery Progress Note Subjective Additional Comments no acute events. comfortable. more alert. no complaints. exam unchanged. Objective Last 24 Hour Vital Signs Date Time Temp Pulse Resp B/P (MAP) Pulse Ox O2 Delivery O2 Flow Rate FiO2 12/29/18 12:00 97.7 111 23 146/67 (93) 100 12/29/18 09:00 Room Air 12/29/18 08:41 113 138/79 12/29/18 08:00 98.2 119 21 152/76 (101) 98 12/29/18 04:00 98.2 113 19 138/79 (98) 98 12/29/18 00:00 97.7 117 18 129/74 (92) 94 12/28/18 21:00 Room Air 12/28/18 19:55 98.6 120 18 156/85 (108) 97 127 12/28/18 17:11 100 142/86 12/28/18 16:00 97.8 100 18 142/86 (104) 99 I&O Intake and Output 12/28/18 12/29/18 19:00 07:00 Intake Total 675 ml 780 ml Output Total 550 ml 1500 ml Balance 125 ml -720 ml Intake Oral 600 ml IV Total 75 ml 780 ml Output Urine Total 550 ml 1500 ml Dressing: saturated Wound: clean Drains: none Cardiovascular: RSR Respiratory: clear Abdomen: soft, non-tender, present bowel sounds, non-distended Extremities: no tenderness, no cyanosis Laboratory Tests Test 12/29/18 06:10 White Blood Count 10.0 K/UL (4.8-10.8) Red Blood Count 3.76 M/UL (4.20-5.40) L Hemoglobin 9.5 G/DL (12.0-16.0) L Hematocrit 30.5 % (37.0-47.0) L Mean Corpuscular Volume 81 FL (80-99) Mean Corpuscular Hemoglobin 25.4 PG (27.0-31.0) L Mean Corpuscular Hemoglobin Concent 31.3 G/DL (32.0-36.0) L Red Cell Distribution Width 17.7 % (11.6-14.8) H Platelet Count 377 K/UL (150-450) Mean Platelet Volume 6.7 FL (6.5-10.1) Neutrophils (%) (Auto) 69.4 % (45.0-75.0) Lymphocytes (%) (Auto) 23.4 % (20.0-45.0) Monocytes (%) (Auto) 4.2 % (1.0-10.0) Eosinophils (%) (Auto) 2.2 % (0.0-3.0) Basophils (%) (Auto) 0.7 % (0.0-2.0) Erythrocyte Sedimentation Rate 104 MM/HR (0-30) H Prothrombin Time 10.7 SEC (9.30-11.50) Prothromb Time International Ratio 1.0 (0.9-1.1) Activated Partial Thromboplast Time 35 SEC (23-33) H Sodium Level 141 MMOL/L (136-145) Potassium Level 4.3 MMOL/L (3.5-5.1) Chloride Level 105 MMOL/L (98-107) Carbon Dioxide Level 27 MMOL/L (21-32) Anion Gap 10 mmol/L (5-15) Blood Urea Nitrogen 8 mg/dL (7-18) Creatinine 0.7 MG/DL (0.55-1.30) Estimat Glomerular Filtration Rate > 60 mL/min (>60) Glucose Level 93 MG/DL (74-106) Calcium Level 9.3 MG/DL (8.5-10.1) Total Bilirubin 0.2 MG/DL (0.2-1.0) Aspartate Amino Transf (AST/SGOT) 13 U/L (15-37) L Alanine Aminotransferase (ALT/SGPT) 18 U/L (12-78) Alkaline Phosphatase 170 U/L (46-116) H C-Reactive Protein, Quantitative 8.3 mg/dL (0.00-0.90) H Total Protein 8.9 G/DL (6.4-8.2) H Total Protein (PEP) Pending Albumin 2.8 G/DL (3.4-5.0) L Albumin (PEP) Pending Globulin 6.1 g/dL Globulin (PEP) Pending Albumin/Globulin Ratio Pending Bltlh-5-Uqqonoecx Pending Izsti-6-Ftycutsmx Pending Beta Globulins Pending Beta Gamma Globulin Pending PEP Abnormal Protein Bands Pending Protein Electrophoresis Interpret Pending Plan Problems: (1) Sacral decubitus ulcer, stage IV Assessment & Plan: Patient presented on admission with resolving full thickness stage 4 sacral decubitus ulcer. central portion full thickness with depth of 1cm approximately 5cm x 6cm in size and forming granulation tissue. periwound with skin breakdown and larger area of partial thickness around the left and right buttock in periwound. no drainage. no foul odor. seems to have been receiving care. heels soft and non tender Tx plan: wash sacral wound with NS daily, apply hydrogel and gauze to central portion, apply skin protectant to periwound, and cover with foam dressing daily opifoam to heels off load heels with pillow turn q2h nutritional support air soft pressure release mattress thank you will follow with recs. (2) Delirium (3) Encephalopathy (4) Acute UTI (urinary tract infection) Assessment & Plan: UA noted leukocytosis resolving cont with ABX (5) Constipation (6) Dehydration (7) Dehydration (8) Fever (9) Pyuria (10) Septicemia (11) Weakness generalized (12) Altered mental state (13) [id number] (14) Multiple sclerosis (15) Abdominal pain (16) Abdominal pain (17) [id number] (18) Suprapubic catheter (19) Trigeminal neuralgia pain (20) HYPOKALEMIA (21) Lower urinary tract infectious disease (22) Lower urinary tract infectious disease (23) Lower urinary tract infectious disease (24) Lower urinary tract infectious disease (25) SEPSIS (26) catheter malfunction (27) musculoskeletal pain (28) neuropathic pain (29) suprapubic cathether malfunction (30) uti Niels Carroll Dec 29, 2018 14:41
--- NOTE | 2018-12-29 14:50 | NUR ---
RD ASSESSMENT & RECOMMENDATIONS SEE CARE ACTIVITY FOR COMPLETE ASSESSMENT DAILY ESTIMATED NEEDS: Needs based on Wounds, 53.5kg abw 25-30 kcals/kg 0835-2408 total kcals 1.25-1.5 g protein/kg 67-80 g total protein 25-30 mL/kg 4171-3632 total fluid mLs NUTRITION DIAGNOSIS: Increased kcal/prot intake needs R/T wound healing as evidenced by pt admitted w/ resolving full thickness stage 4 sacral and DTI BL heel wounds. CURRENT DIET:REGULAR, mech soft ground PO DIET RECOMMENDATIONS: REGULAR/ texture per INTERCEPTOR OPERATOR ADDITIONAL RECOMMENDATIONS: * Calibrated bedscale wt for accurate CBW * INTERCEPTOR OPERATOR eval for appropriate texture * Wound healing: continue MVI : add Vit C 500mg QD and Anival 1pkt BID
--- NOTE | 2018-12-29 15:26 | NUR ---
*-* INSURANCE *-* ALL CLINICALS AND REVIEWS HAVE BEEN FAXED TO: [facility] KELIM: ARELY P- [phone] F- [phone]...REVIEW & CLINICAL
[2018-12-29 16:00] VITALS: BP 131/64
--- NOTE | 2018-12-29 19:14 | NUR ---
HAND-OFF: Report given to Beryl GUERRERO.
--- NOTE | 2018-12-29 19:30 | NUR ---
NURSE NOTES: Patient received in bed, aox2, appears calm at this time, somewhat guarded. IV is intact and patent. Patient on APM/DESTIN mattress. Bilateral heels floated. SPC draining via gravity. Will continue to monitor.
[2018-12-29 20:00] VITALS: BP 135/68
[2018-12-29] MEDS ORDERED: Levofloxacin 750mg tab ORAL SCH (20:00)
--- NOTE | 2018-12-29 23:34 | NUR ---
NURSE NOTES: Patient continues to talk to herself but much calmer tonight than yesterday. Will continue to monitor.
[2018-12-30] VITALS: BP 121/72
--- NOTE | 2018-12-30 02:32 | NUR ---
NURSE NOTES: Wound care done. Pictures taken, patient anticipated to be discharged in AM.
[2018-12-30 04:00] VITALS: BP 131/64
--- NOTE | 2018-12-30 07:31 | NUR ---
HAND-OFF: Report given to Idania GUERRERO.
--- NOTE | 2018-12-30 07:54 | NUR ---
NURSE NOTES: Patient confused, awake, on room air, no sign of distress and shortness of breath; no sign of chest pain; IV Left for-arm flushes well; supra-pubic drains urine drainage drains yellow urine; upper and lower extremities contracted; bed at lowest position, side rails up x2, breaks engaged. will keep monitoring.
[2018-12-30 08:00] VITALS: BP 125/61
--- NOTE | 2018-12-30 08:46 | General Progress Note ---
Assessment/Plan Plan: Urinary tract infection hypertension CVA/transient ischemic attack dementia altered mental status multiple sclerosis I did see her yesterday ut failed to document she has MS, not noted in other MDs notes she has only yeast in UC but is responding well to Levaquin will dc home on PO Levaquin Subjective Constitutional: Reports: no symptoms Allergies: Coded Allergies: CEPHALEXIN (Verified Allergy, Unknown, 11/19/09) HYDROMORPHONE (Unverified Allergy, Unknown, 12/27/18) INTERFERON BETA-1B (Verified Allergy, Unknown, 11/01/12) COULDN'T WALK AFTER TAKING MEDICATION NITROFURANTOIN (Verified Allergy, Unknown, 11/19/09) SULFA (SULFONAMIDE ANTIBIOTICS) (Unverified Allergy, Unknown, 12/27/18) SULFAMETHOXAZOLE (Verified Allergy, Unknown, 11/19/09) TRIMETHOPRIM (Verified Allergy, Unknown, 11/19/09) Uncoded Allergies: COTRIM (Allergy, Unknown, 12/27/18) Objective Last 24 Hour Vital Signs Date Time Temp Pulse Resp B/P (MAP) Pulse Ox O2 Delivery O2 Flow Rate FiO2 12/30/18 08:00 97.3 70 16 125/61 (82) 100 12/30/18 04:00 97.7 96 18 131/64 (86) 99 12/30/18 00:00 98.4 100 18 121/72 (88) 96 12/29/18 21:00 Room Air 12/29/18 20:00 99.2 105 17 135/68 (90) 99 12/29/18 16:00 98.6 105 23 131/64 (86) 98 12/29/18 12:00 97.7 111 23 146/67 (93) 100 12/29/18 09:00 Room Air Intake and Output 12/29/18 12/30/18 19:00 07:00 Intake Total 200 ml Output Total 600 ml 450 ml Balance -400 ml -450 ml Intake Oral 200 ml Output Urine Total 600 ml 450 ml Height (Feet): 5 Height (Inches): 6.00 Weight (Pounds): 140 General Appearance: no apparent distress Neck: normal alignment Cardiovascular: normal rate Respiratory/Chest: lungs clear Will Dunn MD Dec 30, 2018 08:46
[2018-12-30] MEDS: Vitamin D 1000 IU Tab ORAL SCH (10:43)
--- NOTE | 2018-12-30 11:21 | NUR ---
*-* INSURANCE *-* UPDATED CLINICALS HAVE BEEN FAXED TO: [facility] KELIM: ARELY P- [phone] F- [phone]...REVIEW & CLINICAL
[2018-12-30 12:00] VITALS: BP 119/69
--- NOTE | 2018-12-30 13:39 | Surgery Progress Note ---
Surgery Progress Note Subjective Additional Comments no acute events. seemingly comfortable today. no n/v/f/c. Objective Last 24 Hour Vital Signs Date Time Temp Pulse Resp B/P (MAP) Pulse Ox O2 Delivery O2 Flow Rate FiO2 12/30/18 12:00 98.7 98 16 119/69 (86) 99 12/30/18 11:01 Room Air 12/30/18 10:49 97 105/65 12/30/18 09:00 Room Air 12/30/18 08:00 97.3 70 16 125/61 (82) 100 12/30/18 04:00 97.7 96 18 131/64 (86) 99 12/30/18 00:00 98.4 100 18 121/72 (88) 96 12/29/18 21:00 Room Air 12/29/18 20:00 99.2 105 17 135/68 (90) 99 12/29/18 16:00 98.6 105 23 131/64 (86) 98 I&O Intake and Output 12/29/18 12/30/18 18:59 06:59 Intake Total 200 ml Output Total 600 ml 450 ml Balance -400 ml -450 ml Intake Oral 200 ml Output Urine Total 600 ml 450 ml Dressing: dry Wound: clean Drains: other Cardiovascular: RSR Respiratory: clear Abdomen: soft, present bowel sounds Extremities: no tenderness, no cyanosis Plan Problems: (1) Sacral decubitus ulcer, stage IV Assessment & Plan: Patient presented on admission with resolving full thickness stage 4 sacral decubitus ulcer. central portion full thickness with depth of 1cm approximately 5cm x 6cm in size and forming granulation tissue. periwound with skin breakdown and larger area of partial thickness around the left and right buttock in periwound. no drainage. no foul odor. seems to have been receiving care. heels soft and non tender Tx plan: wash sacral wound with NS daily, apply hydrogel and gauze to central portion, apply skin protectant to periwound, and cover with foam dressing daily opifoam to heels off load heels with pillow turn q2h nutritional support air soft pressure release mattress thank you will follow with recs. (2) Delirium (3) Encephalopathy (4) Acute UTI (urinary tract infection) Assessment & Plan: UA noted leukocytosis resolving cont with ABX okay to d/c home on oral abx from surgical standpoint cont with care at home to prevent worsening of wound (5) Constipation (6) Dehydration (7) Dehydration (8) Fever (9) Pyuria (10) Septicemia (11) Weakness generalized (12) Altered mental state (13) [id number] (14) Multiple sclerosis (15) Abdominal pain (16) Abdominal pain (17) [id number] (18) Suprapubic catheter (19) Trigeminal neuralgia pain (20) HYPOKALEMIA (21) Lower urinary tract infectious disease (22) Lower urinary tract infectious disease (23) Lower urinary tract infectious disease (24) Lower urinary tract infectious disease (25) SEPSIS (26) catheter malfunction (27) musculoskeletal pain (28) neuropathic pain (29) suprapubic cathether malfunction (30) uti Niels Carroll Dec 30, 2018 13:39
--- NOTE | 2018-12-30 14:27 | Psych Consult Progress Note ---
Psychiatry Progress Note Psychiatry Progress Note Medications Current Medications Medications (Trade) Dose Ordered Sig/Fransisca Route PRN Reason Start Time Stop Time Status Last Admin Dose Admin Acetaminophen (Tylenol) 650 mg Q4H PRN ORAL Mild Pain/Temp > 100.5 12/27/18 21:45 01/26/19 21:44 Amlodipine Besylate (Norvasc) 5 mg BID ORAL 12/28/18 09:00 01/27/19 08:59 12/30/18 10:49 Baclofen (Lioresal) 20 mg THREE TIMES A DAY ORAL 12/28/18 09:00 01/27/19 08:59 12/30/18 13:20 Bisacodyl (Dulcolax) 10 mg DAILYPRN PRN RECTAL Constipation 12/27/18 21:45 01/26/19 21:44 Levofloxacin (Levaquin) 750 mg DAILY@1999 ORAL 12/29/18 20:00 01/05/19 19:59 12/29/18 20:05 Lorazepam (Ativan 2mg/ml 1ml) 1 mg Q4H PRN IM For Anxiety 12/29/18 11:00 01/05/19 10:59 Multivitamins (Multivitamins) 1 tab DAILY ORAL 12/28/18 09:00 01/27/19 08:59 12/30/18 10:45 Risperidone (RisperDAL) 2 mg BEDTIME ORAL 12/29/18 21:00 01/28/19 20:59 12/29/18 20:05 Vitamin D (Vitamin D) 1,000 intlu DAILY ORAL 12/28/18 09:00 01/27/19 08:59 12/30/18 10:43 Allergies: Coded Allergies: CEPHALEXIN (Verified Allergy, Unknown, 11/19/09) HYDROMORPHONE (Unverified Allergy, Unknown, 12/27/18) INTERFERON BETA-1B (Verified Allergy, Unknown, 11/01/12) COULDN'T WALK AFTER TAKING MEDICATION NITROFURANTOIN (Verified Allergy, Unknown, 11/19/09) SULFA (SULFONAMIDE ANTIBIOTICS) (Unverified Allergy, Unknown, 12/27/18) SULFAMETHOXAZOLE (Verified Allergy, Unknown, 11/19/09) TRIMETHOPRIM (Verified Allergy, Unknown, 11/19/09) Uncoded Allergies: COTRIM (Allergy, Unknown, 12/27/18) Objective Data Height (Feet): 5 Height (Inches): 6.00 Weight (Pounds): 140 General Appearance: WD/WN, alert, confused, agitated Behavior Mannerisms: good eye contact Mental Status Exam - Affect: constricted Mental Status Exam - Mood: anxious, agitated Mental Status Exam - Thought P: disorganized Mental Status Exam - Suicidal: not present Assessment/Plan Problem List: (1) Acute metabolic encephalopathy ICD Codes: G93.41 - Metabolic encephalopathy SNOMED: [id number], [id number] Status: stable Plan: risperdal 2mg po [facility] Christie Byrd MD Dec 30, 2018 14:27
--- NOTE | 2018-12-30 14:35 | NUR ---
NURSE NOTES:WOUND CARE NOTES:Pt presented on admission with resolving pressure injury to sacrum.Combined epithelial and hyperpigmentation noted to sacrum and R ischium(L)13cm x (W)13cm. Small opening noted to sacrococcygeal area(L)0.5cm x (W)0.3cm.Base of wound is moist and viable. Moisture Intertrigo noted to both breasts .Abd panus, and skin folds of R and L flank areas. Moisture Barrier paste applied to affected areas. Xeroses Skin Noted to both lower ext. and both feet. Both lower ext and feet washed and moisturized. Both heels are soft without erythema. Pt verbalized tenderness when each heel palpated. Small partail thickness wound noted to latera L foot .Base of wound moist -viable. Periwound without erythema ,induration or fluctuance. No exudate noted. (L)0.8cm x (W)0.5cm. Tx.Plan:Apply Triad Paste to Skin folds of both breasts ,Abd folds,and R and L flanks Twice daily. Apply Triad paste to sacrum and R ischium. Cover with Optifoam drsg. Change every 3 days and prn. APM/DESTIN Mattress overlay. Reposition at least every 2hours or as tolerated. Apply Cavilon Skin Barrier to both heels . Cover each heel with Optifoam drsg. Change every 7 days and prn. Off-load heels with pillow.
[2018-12-30 16:00] VITALS: BP 116/70
--- NOTE | 2018-12-30 16:02 | NUR ---
NURSE NOTES: Patient left the floor accompanied by two ambulance personnel; IV access and name tag removed upon discharge. Wound care provided and pictures uploaded. Printed material sent to home via ambulance personnel. Patient doesn't have belonging during admission. Patient's son Madhu Finley is aware that patient is going home today. Patient is stable upon discharge.
[2018-12-30] MEDS ORDERED: D5NS 1000ml IV ONE (16:09)
--- NOTE | 2018-12-31 08:04 | Discharge Summary ---
Discharge Summary Discharge Summary _ Discharge summary DATE OF ADMISSION: 12/27/2018 DATE OF DISCHARGE: 12/30/2018 DISCHARGED BY: Dr. Gibson REASON FOR ADMISSION: [] 68 years old female with past medical history of hypertension, asthma, history of CVA, history of multiple sclerosis, presented by paramedics from home with increased delirium. Patient had a baseline dementia but appears to be more confused at baseline. Patient had a suprapubic catheter and urine appeared cloudy. Patient was recently treated for urinary tract infection at [facility]. Upon arrival patient was confused. She denied chest pain and shortness of breath she denied fever and chills no abdominal pain upon evaluation patient was afebrile vital signs reveal slightly elevated blood pressure 154/86 laboratory work-up revealed leukocytosis WBC 14.8 hemoglobin 9.6 hematocrit 30.1. Stable electrolytes. BUN 21 creatinine 0.7 glucose 93 lactic acid 0.8 stable LFT urinalysis revealed +3 leukocyte esterase pyuria few bacteria and few yeast. Chest x-ray demonstrated reduced lung volumes with mild left bilateral atelectasis no consolidation. Patient started to IV fluid patient pancultured started on empiric antibiotics and admitted for further management CONSULTANTS: social work job titles neurologist pulmonary ID specialist GI specialist loss control representative urgent care technician/oncologist surgery Dr. Carroll psychiatrist [facility] COURSE: [] Admit to medical surgical floor. Patient was started on gentle IV hydration and broad-spectrum antibiotics. Home medication resumed. Supplemental oxygen titrated as needed to keep pulse oximetry above 92%. Aspiration precaution maintained. Blood pressure was managed with calcium channel eze and remained stable. Blood cultures were negative urine culture revealed Marium. Surgeon seen the patient for sacral decubitus ulcer stage IV present on admission. Wound care provided as per surgeon recommendation continue. Supportive care provided. Bowel regimen instituted. Psychiatrist seen and evaluated patient psychiatrist patient had acute metabolic encephalopathy. Seroquel was stopped patient started on Risperdal. Mental status told to return to baseline patient clinically stabilized and was ready for discharge home with home health services culture revealed yeast however patient responded well to Levaquin. Patient subsequently was discharged on oral Levaquin to complete the course at home. FINAL DIAGNOSES: 1. [] Urinary tract infection Acute metabolic encephalopathy Hypertension CVA/anxiety ischemic attack Dementia Sacral decubitus ulcer stage IV present on admission Multiple sclerosis DISCHARGE MEDICATIONS: See Medication Reconciliation list. DISCHARGE INSTRUCTIONS: [] Patient was discharged home with home health services. Follow up with primary care provider in one week. I have been assigned to dictate discharge summary for this account. I was not involved in the patient's management. Araseli Gambino NP Dec 31, 2018 08:04
--- NOTE | 2018-12-31 08:17 | Discharge Summary ---
Discharge Summary Discharge Summary _ DATE OF ADMISSION: 12/27/2018 DATE OF DISCHARGE 12/30/2018 DISCHARGED BY: Dr. Dunn REASON FOR ADMISSION: 68 years old female with past medical history of hypertension, CVA, multiple sclerosis, presented from home with increased delirium for 1 day. Patient had underlying dementia , but appeared to be more confused than at baseline as per family. Patient had suprapubic catheter and urine appeared cloudy, as per family. Patient was recently treated for urinary tract infection at [facility]. Upon arrival patient was crying and appeared confused. Patient denied chest pain or shortness of breath. No abdominal pain. No fever or chills. Vital signs demonstrated slightly elevated blood pressure 154/86, otherwise stable. Laboratory work-up revealed leukocytosis with WBC 14.8, hemoglobin 9.6, hematocrit 30.1. Stable electrolytes, BUN 21, creatinine 0.6. Albumin 3.0. Urinalysis revealed evidence of pyuria, +2 protein, +3 leukocyte esterase, and few bacteria and yeast. Chest x-ray demonstrated bibasilar atelectasis, no consolidation. Patient was given IV fluids , pancultured and started on broad-spectrum antibiotics. Patient subsequently was admitted to medical surgical floor for further management. CONSULTANTS: surgery Dr. Carorll psychiatrist [facility] COURSE: Patient admitted to medical surgical floor Patient started on gentle IV hydration and broad-spectrum antibiotics. Supplemental oxygen was on board to keep pulse oximetry above 92%. Repeated chest x-ray still showed bibasilar lung atelectasis and no significant changes from prior study. Blood pressure was managed with calcium channel eze. Supportive care provided. Bowel regimen instituted. Surgeon seen and evaluated patient for sacral decubitus ulcer stage IV , present on admission. Wound care provided as per surgical recommendation. Continue wound care at home. Per nutritional assessment patient was at high risk for malnutrition. Protein supplements implemented in patient's diet. Psychiatrist seen and evaluated patient. Psychiatrist diagnosed patient with acute metabolic encephalopathy. Seroquel was discontinued, and patient started on Risperdal. Altered mental status slowly returned to baseline. Patient clinically stabilized. Leukocytosis resolved, no fevers. Blood cultures were negative. Urine culture revealed yeast , however patient responded well to Levaquin. Patient was discharged home on Levaquin to complete the course. Patient was stable for discharge home. FINAL DIAGNOSES: Urinary tract infection Acute metabolic encephalopathy Sacral decubitus ulcer stage IV, present on admission CVA/TIA Multiple sclerosis Dementia Hypertension DISCHARGE MEDICATIONS: See Medication Reconciliation list. DISCHARGE INSTRUCTIONS: Patient was discharged home with home health services. Follow up with primary care provider in one week. I have been assigned to dictate discharge summary for this account. I was not involved in the patient's management. Araseli Gambino NP Dec 31, 2018 08:17
== END 2018-12-30 16:10 | disposition home or self-care (01) | DRG 689 ==
LOC: EDBD 16:56 → EMR 18:10 → 4E 18:28 → EDBEDREQ 19:35 → 4E 20:38
DX: N39.0 Urinary tract infection, site not specified (principal); G93.41 Metabolic encephalopathy; L89.154 Pressure ulcer of sacral region, stage 4; I10 Essential (primary) hypertension; Z86.73 Personal history of transient ischemic attack (TIA), and cerebral infarction without residual deficits; G35 Multiple sclerosis; F03.90 Unspecified dementia, unspecified severity, without behavioral disturbance, psychotic disturbance, mood disturbance, and anxiety; Z88.6 Allergy status to analgesic agent; Z88.1 Allergy status to other antibiotic agents; Z88.2 Allergy status to sulfonamides; Z88.8 Allergy status to other drugs, medicaments and biological substances; R41.0 Disorientation, unspecified; K59.00 Constipation, unspecified
CPT/HCPCS: 36415; 71045; 80048; 80053; 81003; 83605; 83880; 84165; 85025; 85610; 85651; 85730; 86140; 87040; 87081; 87086; 96361; 96365; 96375; 99285

== ENCOUNTER 2019-04-17 12:02 | Inpatient (IN) | payer MEDICAID, OTHER ==
[~2019-04-17] VITALS: Ht 160 cm; Wt 62.1 kg
--- NOTE | 2019-04-17 12:05 | NUR ---
ED Nurse Note: Patient brought in by ambulance RA [id number] due to abdominal pain started 1 hour prior to arrival with generalized body pain.
--- NOTE | 2019-04-17 12:18 | NUR ---
ED Nurse Note: notified Yovia to have lab draw on bed 1
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
[2019-04-17] MEDS ORDERED: Morphine Sulfate 2mg/ml Inj(IV/IM USE ONLY) IM ONE (12:30)
[2019-04-17 12:50] LABS: BASOPHILS % (AUTO) 0.6 % (0.0-2.0); EOSINOPHILS % (AUTO) 1.8 % (0.0-3.0); HEMATOCRIT 33.5 % (37.0-47.0); HEMOGLOBIN 10.4 G/DL (12.0-16.0); LYMPHOCYTES % (AUTO) 17.7 % (20.0-45.0); MEAN CORPUSCULAR VOLUME 80 FL (80-99); MONOCYTES % (AUTO) 3.3 % (1.0-10.0); NEUTROPHILS % (AUTO) 76.7 % (45.0-75.0); PLATELET COUNT 465 K/UL (150-450); RED BLOOD COUNT 4.19 M/UL (4.20-5.40); RED CELL DISTRIBUTION WIDTH 17.9 % (11.6-14.8); WHITE BLOOD COUNT 9.9 K/UL (4.8-10.8)
[2019-04-17 13:09] LABS: ALANINE AMINOTRANSFERASE 11 U/L (12-78); ALBUMIN 2.4 G/DL (3.4-5.0); ALBUMIN/GLOBULIN RATIO 0.4 (1.0-2.7); ALKALINE PHOSPHATASE 127 U/L (46-116); ANION GAP 9 mmol/L (5-15); ASPARTATE AMINO TRANSFERASE 9 U/L (15-37); BILIRUBIN,TOTAL 0.2 MG/DL (0.2-1.0); BLOOD UREA NITROGEN 11 mg/dL (7-18); CALCIUM 9.4 MG/DL (8.5-10.1); CARBON DIOXIDE 27 MMOL/L (21-32); CHLORIDE 103 MMOL/L (98-107); CREATININE 0.6 MG/DL (0.55-1.30); SODIUM 137 MMOL/L (136-145)
[2019-04-17 13:12] LABS: POTASSIUM 2.6 MMOL/L (3.5-5.1)
--- NOTE | 2019-04-17 13:18 | NUR ---
ED Nurse Note: PT. HAD A BM. KEPT CLEAN AND DRY
[2019-04-17 13:29] VITALS: BP 146/80
--- NOTE | 2019-04-17 13:35 | Diagnostic Imaging Report ---
Indication: Abdominal pain Technique: XRAY Abdomen 1v Comparison: 07/10/2013 Findings: Severe fecal retention is noted. There is no evidence of abnormal gaseous distention of small bowel loops to suggest small bowel obstruction. Bones are demineralized. Degenerative and chronic changes are noted in the spine and bilateral hips. No acute osseous abnormality. Impression: Findings suggestive of marked rectal fecal retention/impaction.
--- NOTE | 2019-04-17 13:37 | Diagnostic Imaging Report ---
Indication: Chest pain, shortness of breath Technique: XRAY Chest 1v Comparison: 12/28/2018 Findings: Heart size and mediastinal contours stable. Lung volumes are low. Likely expiratory atelectasis noted at the bases. The patient's left arm obscures portions of the left lung. There is osteopenia and degenerative change of the spine and shoulders. No acute osseous abnormality is appreciated. No pneumothorax. No significant pleural effusion. No radiopaque foreign body. Impression: Overall no significant interval change from exam of 12/28/2018. Limited exam with low lung volumes. Bibasilar likely expiratory atelectasis.
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
[2019-04-17] MEDS ORDERED: Levofloxacin 500mg tab ORAL ONE (14:00)
--- NOTE | 2019-04-17 14:37 | NUR ---
ED Nurse Note: report given to Chelsea GUERRERO, endorsed all plan of care to Chelsea GUERRERO.
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
--- NOTE | 2019-04-17 14:44 | NUR ---
ED Nurse Note: patient transferred to 4E with all of her belongings with CHIEF CONTROLLERPARKER Rao. Endorsed to Jose Raul MEZA that patient has unstageable sacral ulcer.
--- NOTE | 2019-04-17 15:07 | History & Physical ---
History and Physical History & Physicial REASON FOR ADMISSION: abd pain, UTI HISTORY OF PRESENT ILLNESS: The patient was admitted through the emergency room with abdominal pain x few days. She has a suprapubic catheter. Her urine appeared cloudy. No reports of nausea, vomiting, or diarrhea. She is not ambulatory. director of ancillary services recommended placement. PAST MEDICAL HISTORY: MS, hypertension, asthma, CVA, transient ischemic attack, and dementia. PAST SURGICAL HISTORY: None. SOCIAL HISTORY: Negative for tobacco, alcohol, drugs. MEDICATIONS: Pre-hospital medications and present medications were reviewed, reconciled, and documented in the electronic medical record by dose, frequency, and route. FAMILY HISTORY: Negative as well. PHYSICAL EXAMINATION: GENERAL: She is alert. She is oriented. She is in no acute respiratory distress. She is currently afebrile. VITAL SIGNS: stable. HEENT: Normocephalic and atraumatic. Oropharynx is moist. Nasal mucosa moist. NECK: Supple without lymphadenopathy. LUNGS: Decreased at the bases. No wheeze present. HEART: Regular rate and rhythm without a murmur. ABDOMEN: Soft, obese, nontender. Positive bowel sounds. Suprapubic catheter in place. EXTREMITIES: No edema, contracted. NEUROLOGIC: She is communicating appropriately. Quadriparesis. LABORATORY AND DIAGNOSTIC DATA: reviewed ASSESSMENT AND PLAN: Urinary tract infection hypertension MS, severe PLAN: abx social service consult urology Will Whitfield MD Apr 17, 2019 15:07
[2019-04-17 15:18] LABS: APPEARANCE,URINE VERY CLOUDY; BILIRUBIN, URINE NEGATIVE (NEGATIVE); COLOR,URINE BROWN; GLUCOSE, URINE (UA) NEGATIVE (NEGATIVE); KETONES,URINE 1+ (NEGATIVE); LEUKOCYTE ESTERASE ,URINE 3+ (NEGATIVE); NITRITE,URINE POSITIVE (NEGATIVE); PH,URINE 5 (4.5-8.0); PROTEIN,URINE 3+ (NEGATIVE); UROBILINOGEN,URINE 4 MG/DL (0.0-1.0)
--- NOTE | 2019-04-17 16:21 | NUR ---
NURSE NOTES:WOUND CARE NOTES:PT presented on admission in grossly unkempt state with multiple pressure injuries. Full thickness pressure injury sacrococcygeal area(L)4cm x (W)2.5cm x (D)0.7cm. Biofilm at base of wound and bone is palpable. Additionally, surrounding areas of wound encompassing R and L buttocks and extending into both ischial regions are erythematous -moist with scattered areas of slough and scattered pink epithelial (L)14.5cm x (W)11cm. Full thickness pressure injury R buttocks with 80% slough (L)1.5cm x (W)1cm. Full thickness pressure injury R ischium . Base of wound has 100% slough. (L) (L)2.4cm x (W)3.5cm. Borders and surrounding areas are moist and viable. Tender when minimally palpated. Full thickness pressure injury lateral L tibia .base of wound with mixed eschar and slough . No odor noted .Small amt seropurulent exudate. periwound has darker skin tone with dry, scaly skin.(L)5cm x (W)2cm. Full thickness ulcer lateral L foot . Base of wound 50% viable ,50% slough.Borders are macerated. Periwound dry and flaky without erythema or fluctuance. Tx.Plan. Cleanse sacrococcygeal wound with saline. Apply Therahoney . Apply Moisture Barrier Paste to surrounding buttocks Cover with Optifoam drsg Daily and prn. Cleanse Wound R buttocks with saline. Apply Therahoney. Apply Moisture Barrier periwound. Cover with Optifoam Daily and prn. Cleanse R ischial wound with saline.Apply Therahoney. Apply Moisture Barrier periwound .Cover with Optifoam drsg Daily and prn. Apply Cavilon Skin Barrier to both heels. Cover each heel with Optifoam drsg. Change every 7 days and prn. APM/DESTIN Mattress. Reposition at least every 2hours or as tolerated. Off-load heels with pillow.
[2019-04-17] MEDS ORDERED: Bisacodyl EC 5mg tab ORAL SCH (18:30)
[2019-04-17 18:44] LABS: APPEARANCE,URINE VERY CLOUDY; BILIRUBIN, URINE NEGATIVE (NEGATIVE); GLUCOSE, URINE (UA) NEGATIVE (NEGATIVE); KETONES,URINE 1+ (NEGATIVE); LEUKOCYTE ESTERASE ,URINE 3+ (NEGATIVE); NITRITE,URINE POSITIVE (NEGATIVE); PH,URINE 5 (4.5-8.0); PROTEIN,URINE 3+ (NEGATIVE); UROBILINOGEN,URINE 1 MG/DL (0.0-1.0)
[2019-04-17 18:46] LABS: COLOR,URINE YELLOW
--- NOTE | 2019-04-17 19:30 | NUR ---
NURSE NOTES: Patient asleep in bed, no signs of pain. not in respiratory distress. Call light and needs in reach. Bed in lowest position, lock engaged and alarm on. Will continue to monitor.
--- NOTE | 2019-04-17 19:40 | NUR ---
CASE MANAGEMENT: REVIEW 69Y/F BIBA FROM HOME CC: ABD PAIN X1 HR w/GENERALIZED BODY PAIN . NAUSEA SI: UTI HX SUPRAPUBIC CATHETER . MS w/SEVERE DEFORMITY T 97.9 HR 97 RR 20 BP 153/70 SAT 97% ROOM AIR H/H 10.4/33.5 K 2.6 GLUCOSE 162 IS: MORPHINE IM X1 ZOFRAN PO X1 K-DUR 60MEQ PO X1 LEVAQUIN PO X1 PATIENT ADMITTED TO MED/SURG UNIT 04/17/2019 DCP: PATIENT IS FROM HOME
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
[2019-04-17 20:00] VITALS: BP 104/66
--- NOTE | 2019-04-17 21:00 | NUR ---
NURSE NOTES: Patient woke up hungry. Fed patient with sandwich and some drinks. Patient tolerated well. Will continue to monitor.
--- NOTE | 2019-04-17 22:15 | Consultation ---
DATE OF CONSULTATION: 04/17/2019 CONSULTING PHYSICIAN: Jah Syed M.D. REFERRING PHYSICIAN: Will Dunn M.D. REASON FOR CONSULTATION: For evaluation of suprapubic tube UTI. HISTORY OF PRESENT ILLNESS: This is a 69-year-old female. She has a history of abdominal pain. She has a history of UTI. She has chronic suprapubic tube for neurogenic bladder. Urology evaluation is requested. Apparently, per patient report, the suprapubic tube was changed yesterday, it is draining fairly well. PAST MEDICAL HISTORY: Significant for history of MS, hypertension, asthma, CVA, transient ischemic attack, dementia. PAST SURGICAL HISTORY: Unknown. MEDICATIONS: Current medication list in the hospital was reviewed. ALLERGIES: Multiple, please see the chart. SOCIAL HISTORY: The patient is a nonsmoker. REVIEW OF SYSTEMS: As above. PHYSICAL EXAMINATION: VITAL SIGNS: Temperature is 97.9. ABDOMEN: Soft. No CVA tenderness. Suprapubic tube is in place, 20-Kiswahili. Urine is yellowish, lissa, cloudy. LABORATORY DATA: UA shows positive protein, ketones, 5 to 10 rbc's, too numerous to count wbc's, many bacteria. White count is 9.9, hemoglobin 10.4. BUN is 11, creatinine 0.6. DIAGNOSTIC IMAGING STUDIES: The patient had an abdominal x-ray and a chest x-ray, which was reviewed. Her last renal imaging is a CT scan from 2014 and at that time there was no mention of any renal abnormalities. IMPRESSION: 1. Urinary retention with chronic suprapubic tube. 2. Neurogenic bladder. 3. Pyuria and probable colonized urine with possible UTI. 4. Hematuria. 5. Proteinuria. PLAN AND DISCUSSION: The patient has been monitored clinically. According to her, the suprapubic tube was changed recently. It will be irrigated as needed with antibiotics empirically and we will follow up on the results of any cultures and adjust accordingly. At some point, she can have a cystoscopy electively in the future. Thank you for this consultation. Jah Syed M.D. DR: PEDRO JOB#: [id number] CC:
[2019-04-18] VITALS: BP 143/82
[2019-04-18 04:00] VITALS: BP 149/97
--- NOTE | 2019-04-18 07:00 | NUR ---
NURSE NOTES: Pt resting in bed. A/O x 4, calm. Denies pain, no SOB noted. pts contracted Tj upper/lower extremities. Dressing CDI. no IV site , MD aware. suprapubic cath in place. pts on P200 bed , turned and reposition q2hrs. call light within reach, bed alarm on, fall precaution maintained. will continue to monitor.
--- NOTE | 2019-04-18 07:23 | NUR ---
HAND-OFF: Report given to YOLANDA Camp.
[2019-04-18 08:00] VITALS: BP 124/74
--- NOTE | 2019-04-18 08:00 | Urology Progress Note ---
Assessment/Plan Assessment/Plan: 1. Urinary retention with chronic suprapubic tube. 2. Neurogenic bladder. 3. Pyuria and probable colonized urine with possible UTI. 4. Hematuria. 5. Proteinuria. keep SP tube, was recently exchanged per pt hand irrigated and do PRN abx ? f/u on urine cx consider renal imaging study cysto later Subjective Allergies: Coded Allergies: CEPHALEXIN (Verified Allergy, Unknown, 11/19/09) HYDROMORPHONE (Unverified Allergy, Unknown, 12/27/18) INTERFERON BETA-1B (Verified Allergy, Unknown, 11/01/12) COULDN'T WALK AFTER TAKING MEDICATION NITROFURANTOIN (Verified Allergy, Unknown, 11/19/09) SULFA (SULFONAMIDE ANTIBIOTICS) (Unverified Allergy, Unknown, 12/27/18) SULFAMETHOXAZOLE (Verified Allergy, Unknown, 11/19/09) TRIMETHOPRIM (Verified Allergy, Unknown, 11/19/09) Uncoded Allergies: COTRIM (Allergy, Unknown, 12/27/18) Subjective all noted, looks comfortable Objective Last 24 Hour Vital Signs Date Time Temp Pulse Resp B/P (MAP) Pulse Ox O2 Delivery O2 Flow Rate FiO2 04/18/19 05:10 103 04/18/19 04:00 97.8 118 20 149/97 (114) 97 04/18/19 00:27 107 04/18/19 00:00 96.9 120 20 143/82 (102) 98 04/17/19 21:00 Room Air 04/17/19 20:00 97.7 108 20 104/66 (79) 96 04/17/19 17:24 98 146/80 04/17/19 16:56 Room Air 04/17/19 14:45 97.9 98 15 146/80 100 Room Air 04/17/19 13:29 97.9 98 15 146/80 100 Room Air 04/17/19 12:57 97.9 04/17/19 12:13 97 20 Room Air 04/17/19 11:59 97.9 97 20 153/70 (97) 97 Room Air Intake and Output 04/17/19 04/18/19 19:00 07:00 Intake Total 400 ml 400 ml Output Total 400 ml 250 ml Balance 0 ml 150 ml Intake Oral 400 ml 400 ml Output Urine Total 400 ml 250 ml # Voids 1 # Bowel Movements 1 1 Microbiology Date/Time Source Procedure Growth Status 04/17/19 14:37 Urine,Clean Catch Urine Culture - Preliminary Gram Negative Phani Resulted Current Medications Medications (Trade) Dose Ordered Sig/Fransisca Route PRN Reason Start Time Stop Time Status Last Admin Dose Admin Amlodipine Besylate (Norvasc) 5 mg BID ORAL 04/17/19 18:00 05/17/19 17:59 04/17/19 17:24 Baclofen (Lioresal) 10 mg THREE TIMES A DAY ORAL 04/17/19 18:00 05/17/19 17:59 04/17/19 17:24 Bisacodyl (Dulcolax) 5 mg DAILY ORAL 04/18/19 09:00 05/18/19 08:59 Multivitamins (Multivitamins) 1 tab DAILY ORAL 04/18/19 09:00 05/18/19 08:59 Oxycodone/ Acetaminophen (Percocet 10/325) 1 tab Q4H PRN ORAL For Pain 04/17/19 15:30 04/24/19 15:29 Potassium Chloride (K-Dur) 40 meq TWICE A DAY ORAL 04/17/19 18:00 05/17/19 17:59 04/17/19 17:24 Vitamin D (Vitamin D) 1,000 intlu DAILY ORAL 04/18/19 09:00 05/18/19 08:59 Laboratory Tests 04/17/19 12:30: White Blood Count 9.9, Red Blood Count 4.19L, Hemoglobin 10.4L, Hematocrit 33.5L , Mean Corpuscular Volume 80, Mean Corpuscular Hemoglobin 24.9L, Mean Corpuscular Hemoglobin Concent 31.2L, Red Cell Distribution Width 17.9H, Platelet Count 465H, Mean Platelet Volume 5.8L, Neutrophils (%) (Auto) 76.7H, Lymphocytes (%) (Auto) 17.7L, Monocytes (%) (Auto) 3.3, Eosinophils (%) (Auto) 1.8, Basophils (%) (Auto) 0.6, Sodium Level 137, Potassium Level 2.6*L, Chloride Level 103, Carbon Dioxide Level 27, Anion Gap 9, Blood Urea Nitrogen 11 , Creatinine 0.6, Estimat Glomerular Filtration Rate > 60, Glucose Level 162H, Calcium Level 9.4, Total Bilirubin 0.2, Aspartate Amino Transf (AST/SGOT) 9L, Alanine Aminotransferase (ALT/SGPT) 11L, Alkaline Phosphatase 127H, Total Protein 8.7H, Albumin 2.4L, Globulin 6.3, Albumin/Globulin Ratio 0.4L, Lipase 135 04/17/19 14:37: Urine Color Brown, Urine Appearance Very cloudy, Urine pH 5, Urine Specific [place] 1.020, Urine Protein 3+H, Urine Glucose (UA) Negative, Urine Ketones 1+H , Urine Blood 5+H, Urine Nitrite PositiveH, Urine Bilirubin Negative, Urine Urobilinogen 4H, Urine Leukocyte Esterase 3+H, Urine RBC 5-10H, Urine WBC TntcH , Urine Squamous Epithelial Cells ModerateH, Urine Bacteria ManyH 04/17/19 18:30: Urine Color Yellow, Urine Appearance Very cloudy, Urine pH 5, Urine Specific [place] 1.020, Urine Protein 3+H, Urine Glucose (UA) Negative, Urine Ketones 1+H , Urine Blood 5+H, Urine Nitrite PositiveH, Urine Bilirubin Negative, Urine Urobilinogen 1H, Urine Leukocyte Esterase 3+H, Urine RBC 2-4H, Urine WBC TntcH, Urine Squamous Epithelial Cells ManyH, Urine Bacteria ManyH Height (Feet): 5 Height (Inches): 3.00 Weight (Pounds): 165 Objective exam stable SP tube in place, urine yellow with some debris Jah Syed MD Apr 18, 2019 08:00
[2019-04-18] MEDS ORDERED: Bisacodyl EC 5mg tab ORAL ONE (09:00)
[2019-04-18] MEDS ORDERED: Bisacodyl EC 5mg tab ORAL SCH (09:00)
[2019-04-18] MEDS ORDERED: Vitamin D 1000 IU Tab ORAL SCH (09:00)
--- NOTE | 2019-04-18 09:33 | NUR ---
Pt stable condition, denies pain, no SOB noted. left message to Dr. Dunn, regarding Pt elevated HR, waiting for respond. will continue to monitor.
--- NOTE | 2019-04-18 10:09 | NUR ---
NURSE NOTES: spoke with oracle technical developer, she will see pt in 2 hrs, notified MD. will continue to monitor.
[2019-04-18 12:00] VITALS: BP 111/59
--- NOTE | 2019-04-18 12:30 | NUR ---
NURSE NOTES: Noted Pt's suprapubic cath next to Pt. MD to be notified by transferring RN.
--- NOTE | 2019-04-18 12:30 | NUR ---
NURSE NOTES: Received order to transfer pt to Tele Unit. Last BP 122/61, HR 102. pt stable condition. denies pain. Sacral and LE Dressing changed per order, picture taken. after bed bath, noticed suprapubic cath out, will notify
--- NOTE | 2019-04-18 12:30 | NUR ---
NURSE NOTES: Patient came in on hospital bed from accompanied by YOLANDA Camp. Cleaned and changed patient. Wound dressing changed, picture taken. 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 Oriented to room. Bed on lowest position, side rails upx2, brakes engaged, alarm on. Call light within easy reach.
--- NOTE | 2019-04-18 12:55 | NUR ---
NURSE NOTES: notified MD regarding cath out, transfer MD phone call to tele unit.
--- NOTE | 2019-04-18 14:04 | NUR ---
Supra Pubic Catheter re inserted using Sterile technique. #20 mal[place] Catheter inserted to right lower quadrant old supra pubic stoma. Pt. tolerated procedure well. Balloon inflated with 15ml sterile water. cloudy urine with steaks of blood tinged mucus noted to drain out instantly. irrigated with 25ml of saline, flushed easy without resistance. connected to new drainage bag
[2019-04-18 16:00] VITALS: BP 127/78
--- NOTE | 2019-04-18 19:25 | NUR ---
NURSE NOTES: Unable to upload wound pictures. Informed receiving RN, agreed to upload.
--- NOTE | 2019-04-18 19:30 | NUR ---
NURSE NOTES: Received patient from YOLANDA Gan. patient is observed resting in bed, responds to name and follows commands, denies pain at this time. patient is on room air, no s/sx of respiratory distress noted at this time. Suprapubic catheter is patent and intact, draining well. No IV, MD aware per day shift nurse. bed in lowest position, siderails up X2, call light within reach. will continue to monitor.
--- NOTE | 2019-04-18 19:54 | History & Physical ---
History and Physical History & Physicial error Judie Llamas DO Apr 18, 2019 19:54
--- NOTE | 2019-04-18 19:55 | Pulmonology Progress Note ---
Assessment/Plan Assessment/Plan Urinary tract infection hypertension MS, severe abx continue IVF check am labs wound care dc planning Subjective Constitutional: Reports: no symptoms HEENT: Repors: no symptoms Respiratory: Reports: no symptoms Cardiovascular: Reports: no symptoms Allergies: Coded Allergies: CEPHALEXIN (Verified Allergy, Unknown, 11/19/09) HYDROMORPHONE (Unverified Allergy, Unknown, 12/27/18) INTERFERON BETA-1B (Verified Allergy, Unknown, 11/01/12) COULDN'T WALK AFTER TAKING MEDICATION NITROFURANTOIN (Verified Allergy, Unknown, 11/19/09) SULFA (SULFONAMIDE ANTIBIOTICS) (Unverified Allergy, Unknown, 12/27/18) SULFAMETHOXAZOLE (Verified Allergy, Unknown, 11/19/09) TRIMETHOPRIM (Verified Allergy, Unknown, 11/19/09) Uncoded Allergies: COTRIM (Allergy, Unknown, 12/27/18) Subjective better no cp nv or bleeding not getting oob on ra toelrating po Objective Last 24 Hour Vital Signs Date Time Temp Pulse Resp B/P (MAP) Pulse Ox O2 Delivery O2 Flow Rate FiO2 04/18/19 18:20 100 127/78 04/18/19 16:00 97.7 100 20 127/78 (94) 99 04/18/19 12:00 98.2 97 20 111/59 (76) 97 04/18/19 09:00 Room Air 04/18/19 08:36 110 124/74 04/18/19 08:00 99.4 110 20 124/74 (91) 97 04/18/19 05:10 103 04/18/19 04:00 97.8 118 20 149/97 (114) 97 04/18/19 00:27 107 04/18/19 00:00 96.9 120 20 143/82 (102) 98 04/17/19 21:00 Room Air 04/17/19 20:00 97.7 108 20 104/66 (79) 96 Intake and Output 04/17/19 04/18/19 19:00 07:00 Intake Total 400 ml 400 ml Output Total 400 ml 250 ml Balance 0 ml 150 ml Intake Oral 400 ml 400 ml Output Urine Total 400 ml 250 ml # Voids 1 # Bowel Movements 1 1 General Appearance: cachetic Respiratory/Chest: lungs clear, normal breath sounds Cardiovascular: normal rate, regularly irregular Abdomen: soft, non tender, no organomegaly Neurologic/Psychiatric: abnormal gait, alert, responsive Microbiology Date/Time Source Procedure Growth Status 04/17/19 14:37 Urine,Clean Catch Urine Culture - Preliminary Gram Negative Phani Resulted Laboratory Tests 04/18/19 19:20: Troponin I [Pending] Current Medications Medications (Trade) Dose Ordered Sig/Fransisca Route PRN Reason Start Time Stop Time Status Last Admin Dose Admin Amlodipine Besylate (Norvasc) 5 mg BID ORAL 04/18/19 18:00 05/17/19 17:59 04/18/19 18:20 Baclofen (Lioresal) 10 mg THREE TIMES A DAY ORAL 04/18/19 18:00 05/17/19 17:59 04/18/19 18:20 Bisacodyl (Dulcolax) 5 mg DAILY ORAL 04/19/19 09:00 05/18/19 08:59 Multivitamins (Multivitamins) 1 tab DAILY ORAL 04/19/19 09:00 05/18/19 08:59 Oxycodone/ Acetaminophen (Percocet 10/325) 1 tab Q4H PRN ORAL For Pain 04/18/19 16:18 04/25/19 16:17 Potassium Chloride (K-Dur) 40 meq TWICE A DAY ORAL 04/18/19 18:00 05/17/19 17:59 04/18/19 18:21 Vitamin D (Vitamin D) 1,000 intlu DAILY ORAL 04/19/19 09:00 05/18/19 08:59 Judie Llamas DO Apr 18, 2019 19:55
--- NOTE | 2019-04-18 19:56 | NUR ---
HAND-OFF: Report given to YOLANDA Obrien. Patient sleeping comfortably. No distress noted.
[2019-04-18 20:00] VITALS: BP 100/70
[2019-04-19] VITALS: BP 142/81
[2019-04-19 04:00] VITALS: BP_SYST 137; BP_SYST 142; BP_DIAS 76; BP_DIAS 83
[2019-04-19 04:52] LABS: BASOPHILS % (AUTO) 0.5 % (0.0-2.0); EOSINOPHILS % (AUTO) 2.5 % (0.0-3.0); HEMATOCRIT 32.3 % (37.0-47.0); LYMPHOCYTES % (AUTO) 22.5 % (20.0-45.0); MEAN CORPUSCULAR VOLUME 80 FL (80-99); MONOCYTES % (AUTO) 6.1 % (1.0-10.0); NEUTROPHILS % (AUTO) 68.5 % (45.0-75.0); PLATELET COUNT 493 K/UL (150-450); RED BLOOD COUNT 4.05 M/UL (4.20-5.40); RED CELL DISTRIBUTION WIDTH 18.6 % (11.6-14.8); WHITE BLOOD COUNT 12.2 K/UL (4.8-10.8)
[2019-04-19 05:04] LABS: ANION GAP 4 mmol/L (5-15); BLOOD UREA NITROGEN 7 mg/dL (7-18); CALCIUM 9.1 MG/DL (8.5-10.1); CARBON DIOXIDE 28 MMOL/L (21-32); CHLORIDE 103 MMOL/L (98-107); CREATININE 0.6 MG/DL (0.55-1.30); POTASSIUM 5.7 MMOL/L (3.5-5.1); SODIUM 135 MMOL/L (136-145)
--- NOTE | 2019-04-19 07:39 | NUR ---
HAND-OFF: Report given to YOLANDA Hutchins. patient is in stable condition. Day nurse made aware of lack of IV access.
--- NOTE | 2019-04-19 07:59 | NUR ---
NURSE NOTES: Received pt from Camille Gilbert RN in stable condition with no cardiopulmonary distress noted. Pt is awake in bed, AAOx3 on RA. Skin alterations noted. Pt has suprapubic catheter draining yellow urine. Skin alterations noted. Pt has no IV access, per Camille, multiple staff attempted IV access with no success, Dr. Dunn is aware. Attempted to start IV YOLANDA Gan at this time with no success. Bed is in lowest position with alarm on, side rails up x 3, call light within reach. Will continue to monitor. Addendum: 04/19/19 at 0801 by Liset Valdes RN Amendment: Correct time 0739
[2019-04-19 08:00] VITALS: BP 122/67
--- NOTE | 2019-04-19 08:12 | NUR ---
NURSE NOTES: Contacted Dr. Llamas for ABX orders. Dr. Llamas made aware there is no IV access and also aware of Magneisum level. Per Dr. Llamas, no new orders for Magnesium replacement. Pt will be placed on Levaquin 250 PO daily for 7 days
[2019-04-19] MEDS: Bisacodyl EC 5mg tab ORAL SCH (08:55)
[2019-04-19] MEDS: Vitamin D 1000 IU Tab ORAL SCH (08:56)
--- NOTE | 2019-04-19 10:37 | NUR ---
NURSE NOTES: Received call from Dr. Llamas regarding change of ABX order to IV zosyn (per pharmacy, pt is resistant to levaquin). Dr. Llamas requested PICC line however per charge nurse there are no available radiologists to insert PICC line on weekend. Dr. Llamas asked me to follow chain of command and get PICC line in if another attempt (by ESTATE MANAGER) for peripheral IV is unsuccessful. I relayed this info to Don (RN suction dredge dumping supervisor). Don stated she will send an ESTATE MANAGER to attempt peripheral IV access again and if unsuccessful, Dr. Llamas will be contacted about calling a surgeon who can come in to insert PICC line today since there are no available radiologists.
--- NOTE | 2019-04-19 11:03 | NUR ---
NURSE NOTES: CEO & FOUNDER (rosa Ochoa) was able to start 22g IV on Left foot (Dr. Llamas placed order that it's okay to start IV there). Will resume with plan of care. Addendum: 04/19/19 at 1357 by Liset Valdes RN Amendment: Right foot (not left)
--- NOTE | 2019-04-19 11:12 | NUR ---
NURSE NOTES: Charge nurse Shima was able to start a 24g IV in .
[2019-04-19] MEDS: Zosyn 3.375gm q8h **Extended infusion IVPB SCH ×4 (11:57→21:06)
[2019-04-19 12:00] VITALS: BP 106/54
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
[2019-04-19] MEDS ORDERED: Fleet's Enema 133ml RECTAL SCH (12:30)
--- NOTE | 2019-04-19 12:40 | Urology Progress Note ---
Assessment/Plan Assessment/Plan: 1. Urinary retention with chronic suprapubic tube. 2. Neurogenic bladder. 3. Pyuria and probable colonized urine with possible UTI. 4. Hematuria. 5. Proteinuria. keep SP tube last replaced 04/18 hand irrigated and do PRN position is satisfactory abx added consider renal imaging study cysto later Subjective Allergies: Coded Allergies: CEPHALEXIN (Verified Allergy, Unknown, 11/19/09) HYDROMORPHONE (Unverified Allergy, Unknown, 12/27/18) INTERFERON BETA-1B (Verified Allergy, Unknown, 11/01/12) COULDN'T WALK AFTER TAKING MEDICATION NITROFURANTOIN (Verified Allergy, Unknown, 11/19/09) SULFA (SULFONAMIDE ANTIBIOTICS) (Unverified Allergy, Unknown, 12/27/18) SULFAMETHOXAZOLE (Verified Allergy, Unknown, 11/19/09) TRIMETHOPRIM (Verified Allergy, Unknown, 11/19/09) Uncoded Allergies: COTRIM (Allergy, Unknown, 12/27/18) Subjective all noted, SP tube fell out yest and was replaced by the nursing staff has been draining ok Objective Last 24 Hour Vital Signs Date Time Temp Pulse Resp B/P (MAP) Pulse Ox O2 Delivery O2 Flow Rate FiO2 04/19/19 09:00 Room Air 04/19/19 08:55 82 122/67 04/19/19 08:00 98.2 82 16 122/67 (85) 97 04/19/19 08:00 92 04/19/19 04:00 97.4 92 18 142/83 (102) 96 04/19/19 04:00 92 04/19/19 00:00 98.3 107 18 142/81 (101) 96 04/19/19 00:00 93 04/18/19 22:34 89 04/18/19 21:00 Room Air 04/18/19 20:00 98.5 98 18 100/70 (80) 97 04/18/19 18:20 100 127/78 04/18/19 16:00 97.7 100 20 127/78 (94) 99 Intake and Output 04/18/19 04/19/19 19:00 07:00 Intake Total 240 ml 120 ml Output Total 400 ml 800 ml Balance -160 ml -680 ml Intake Oral 240 ml 120 ml Output Urine Total 400 ml 800 ml Microbiology Date/Time Source Procedure Growth Status 04/17/19 14:37 Urine,Clean Catch Urine Culture - Final Escherichia Coli Complete Current Medications Medications (Trade) Dose Ordered Sig/Fransisca Route PRN Reason Start Time Stop Time Status Last Admin Dose Admin Amlodipine Besylate (Norvasc) 5 mg BID ORAL 04/18/19 18:00 05/17/19 17:59 04/19/19 08:55 Baclofen (Lioresal) 10 mg THREE TIMES A DAY ORAL 04/18/19 18:00 05/17/19 17:59 04/19/19 12:01 Bisacodyl (Dulcolax) 5 mg DAILY ORAL 04/19/19 09:00 05/18/19 08:59 04/19/19 08:55 Heparin Sodium (Porcine) (Heparin 5000 units/ml) 5,000 units EVERY 12 HOURS SUBQ 04/19/19 21:00 05/19/19 20:59 Multivitamins (Multivitamins) 1 tab DAILY ORAL 04/19/19 09:00 05/18/19 08:59 04/19/19 08:55 Oxycodone/ Acetaminophen (Percocet 10/325) 1 tab Q4H PRN ORAL For Pain 04/18/19 16:18 04/25/19 16:17 04/19/19 02:58 Piperacillin Sod/ Tazobactam Sod 3.375 gm/Sodium Chloride 110 ml @ 27.5 mls/hr EVERY 8 HOURS IVPB 04/19/19 12:30 04/24/19 12:29 04/19/19 11:57 Vitamin D (Vitamin D) 1,000 intlu DAILY ORAL 04/19/19 09:00 05/18/19 08:59 04/19/19 08:56 Laboratory Tests 04/18/19 19:20: Troponin I 0.000 04/19/19 03:00: Troponin I 0.000, White Blood Count 12.2H, Red Blood Count 4.05L, Hemoglobin 10.0L, Hematocrit 32.3L, Mean Corpuscular Volume 80, Mean Corpuscular Hemoglobin 24.7L, Mean Corpuscular Hemoglobin Concent 31.0L, Red Cell Distribution Width 18.6H, Platelet Count 493H, Mean Platelet Volume 5.5L, Neutrophils (%) (Auto) 68.5, Lymphocytes (%) (Auto) 22.5, Monocytes (%) (Auto) 6.1, Eosinophils (%) (Auto) 2.5, Basophils (%) (Auto) 0.5, Sodium Level 135L, Potassium Level 5.7H, Chloride Level 103, Carbon Dioxide Level 28, Anion Gap 4L , Blood Urea Nitrogen 7, Creatinine 0.6, Estimat Glomerular Filtration Rate > 60 , Glucose Level 95, Calcium Level 9.1, Magnesium Level 1.7L Height (Feet): 5 Height (Inches): 3.00 Weight (Pounds): 165 Objective exam stable SP tube in place, urine yellow with some debris Jah Syed MD Apr 19, 2019 12:40
--- NOTE | 2019-04-19 13:00 | NUR ---
NURSE NOTES: Dr. Carroll aware of pt's potassium level today. No new orders.
--- NOTE | 2019-04-19 14:48 | Pulmonology Progress Note ---
Assessment/Plan Assessment/Plan Urinary tract infection Ecoli hypertension MS, severe abx continue zosyn IVF stopped potassium wound care dc planning Subjective Constitutional: Reports: no symptoms HEENT: Repors: no symptoms Respiratory: Reports: no symptoms Cardiovascular: Reports: no symptoms Gastrointestinal/Abdominal: Reports: no symptoms Allergies: Coded Allergies: CEPHALEXIN (Verified Allergy, Unknown, 11/19/09) HYDROMORPHONE (Unverified Allergy, Unknown, 12/27/18) INTERFERON BETA-1B (Verified Allergy, Unknown, 11/01/12) COULDN'T WALK AFTER TAKING MEDICATION NITROFURANTOIN (Verified Allergy, Unknown, 11/19/09) SULFA (SULFONAMIDE ANTIBIOTICS) (Unverified Allergy, Unknown, 12/27/18) SULFAMETHOXAZOLE (Verified Allergy, Unknown, 11/19/09) TRIMETHOPRIM (Verified Allergy, Unknown, 11/19/09) Uncoded Allergies: COTRIM (Allergy, Unknown, 12/27/18) Subjective better no cp nv or bleeding not getting oob on ra k stopped today IVF started by surgery diffiuclty getting IV access this am but now with peripherial line and IV abx started according to allergies and sensitivities tolerating po Objective Last 24 Hour Vital Signs Date Time Temp Pulse Resp B/P (MAP) Pulse Ox O2 Delivery O2 Flow Rate FiO2 04/19/19 12:00 109 04/19/19 12:00 98.6 88 18 106/54 (71) 98 04/19/19 09:00 Room Air 04/19/19 08:55 82 122/67 04/19/19 08:00 98.2 82 16 122/67 (85) 97 04/19/19 08:00 92 04/19/19 04:00 97.4 92 18 142/83 (102) 96 04/19/19 04:00 92 04/19/19 00:00 98.3 107 18 142/81 (101) 96 04/19/19 00:00 93 04/18/19 22:34 89 04/18/19 21:00 Room Air 04/18/19 20:00 98.5 98 18 100/70 (80) 97 04/18/19 18:20 100 127/78 04/18/19 16:00 97.7 100 20 127/78 (94) 99 Intake and Output 04/18/19 04/19/19 18:59 06:59 Intake Total 240 ml Output Total 400 ml 800 ml Balance -160 ml -800 ml Intake Oral 240 ml Output Urine Total 400 ml 800 ml General Appearance: WD/WN Respiratory/Chest: lungs clear, normal breath sounds Cardiovascular: normal rate, regular rhythm Abdomen: soft, non tender, no organomegaly Skin: no rash, lesions Neurologic/Psychiatric: alert Microbiology Date/Time Source Procedure Growth Status 04/17/19 14:37 Urine,Clean Catch Urine Culture - Final Escherichia Coli Complete Laboratory Tests 04/18/19 19:20: Troponin I 0.000 04/19/19 03:00: Troponin I 0.000, White Blood Count 12.2H, Red Blood Count 4.05L, Hemoglobin 10.0L, Hematocrit 32.3L, Mean Corpuscular Volume 80, Mean Corpuscular Hemoglobin 24.7L, Mean Corpuscular Hemoglobin Concent 31.0L, Red Cell Distribution Width 18.6H, Platelet Count 493H, Mean Platelet Volume 5.5L, Neutrophils (%) (Auto) 68.5, Lymphocytes (%) (Auto) 22.5, Monocytes (%) (Auto) 6.1, Eosinophils (%) (Auto) 2.5, Basophils (%) (Auto) 0.5, Sodium Level 135L, Potassium Level 5.7H, Chloride Level 103, Carbon Dioxide Level 28, Anion Gap 4L , Blood Urea Nitrogen 7, Creatinine 0.6, Estimat Glomerular Filtration Rate > 60 , Glucose Level 95, Calcium Level 9.1, Magnesium Level 1.7L Current Medications Medications (Trade) Dose Ordered Sig/Fransisca Route PRN Reason Start Time Stop Time Status Last Admin Dose Admin Amlodipine Besylate (Norvasc) 5 mg BID ORAL 04/18/19 18:00 05/17/19 17:59 04/19/19 08:55 Baclofen (Lioresal) 10 mg THREE TIMES A DAY ORAL 04/18/19 18:00 05/17/19 17:59 04/19/19 12:01 Bisacodyl (Dulcolax) 5 mg DAILY ORAL 04/19/19 09:00 05/18/19 08:59 04/19/19 08:55 Heparin Sodium (Porcine) (Heparin 5000 units/ml) 5,000 units EVERY 12 HOURS SUBQ 04/19/19 21:00 05/19/19 20:59 Multivitamins (Multivitamins) 1 tab DAILY ORAL 04/19/19 09:00 05/18/19 08:59 04/19/19 08:55 Oxycodone/ Acetaminophen (Percocet 10/) 1 tab Q4H PRN ORAL For Pain 04/18/19 16:18 04/25/19 16:17 04/19/19 13:54 Piperacillin Sod/ Tazobactam Sod 3.375 gm/Sodium Chloride 110 ml @ 27.5 mls/hr EVERY 8 HOURS IVPB 04/19/19 12:30 04/24/19 12:29 04/19/19 11:57 Sodium Chloride 1,000 ml @ 75 mls/hr [id number] IV 04/19/19 18:00 05/19/19 17:59 Vitamin D (Vitamin D) 1,000 intlu DAILY ORAL 04/19/19 09:00 05/18/19 08:59 04/19/19 08:56 Judie Llamas DO Apr 19, 2019 14:48
--- NOTE | 2019-04-19 15:13 | NUR ---
NURSE NOTES: Dr. Llamas came in to see pt and is aware of pt's potassium level with no new orders at this time. I requested podiatry consult for pt and informed Dr. Llamas that pt's toe nails are extremely long- possible candidate for podiatry assessment. Dr. Llamas requested this info to be relayed to Dr. Dunn tomorrow. Will endorse to PM RN.
[2019-04-19] MEDS ORDERED: NS 275ml ONE (15:22)
[2019-04-19] MEDS ORDERED: Tubing IV Secondary IV ONE (15:22)
[2019-04-19 16:00] VITALS: BP_SYST 100; BP_SYST 136; BP_DIAS 57; BP_DIAS 80
--- NOTE | 2019-04-19 16:15 | NUR ---
NURSE NOTES: Left message for Dr. Llamas regarding pt's HR trending up currently 120 bpm. Awaiting call back.
--- NOTE | 2019-04-19 19:29 | NUR ---
HAND-OFF: Report given to YOLANDA Nazario. Pt in stable condition.
--- NOTE | 2019-04-19 19:30 | NUR ---
NURSE NOTES: Received bedside report from YOLANDA Hutchins.Patient stable in a bed,no c/o pain,no respiratory distress noted at this moment,SR-ST on a alarm security or surveillance monitor,tolerated r/air well,BS active in all quadrants,IV asymptomatic intact on L foot 22 G SL and on R hand 22 G running with NS @ 75 ml/hr,bed secured in a low safety position,call light within a reach,will continue to monitor and follow POC.
[2019-04-19 20:00] VITALS: BP 137/82
[2019-04-19] MEDS: Heparin 5000 units/ml inj SUBQ SCH (21:08)
[2019-04-20] VITALS: BP 132/74
[2019-04-20 04:00] VITALS: BP 113/62
[2019-04-20] MEDS: Zosyn 3.375gm q8h **Extended infusion IVPB SCH ×6 (05:45→21:10)
--- NOTE | 2019-04-20 07:10 | NUR ---
HAND-OFF: Report given to YOLANDA Novoa.Patient stable,clean and dry.
[2019-04-20 07:51] LABS: BASOPHILS % (AUTO) 0.5 % (0.0-2.0); HEMATOCRIT 28.7 % (37.0-47.0); LYMPHOCYTES % (AUTO) 16.9 % (20.0-45.0); MEAN CORPUSCULAR VOLUME 81 FL (80-99); MONOCYTES % (AUTO) 2.5 % (1.0-10.0); NEUTROPHILS % (AUTO) 77.1 % (45.0-75.0); PLATELET COUNT 434 K/UL (150-450); RED BLOOD COUNT 3.56 M/UL (4.20-5.40); RED CELL DISTRIBUTION WIDTH 18.5 % (11.6-14.8); WHITE BLOOD COUNT 14.9 K/UL (4.8-10.8)
[2019-04-20 07:58] VITALS: BP 115/68
--- NOTE | 2019-04-20 08:04 | Urology Progress Note ---
Assessment/Plan Assessment/Plan: 1. Urinary retention with chronic suprapubic tube. 2. Neurogenic bladder. 3. Pyuria and probable colonized urine with possible UTI. 4. Hematuria. 5. Proteinuria. keep SP tube last replaced 04/18 hand irrigated and do PRN position is satisfactory abx added consider renal imaging study cysto later Subjective Allergies: Coded Allergies: CEPHALEXIN (Verified Allergy, Unknown, 11/19/09) HYDROMORPHONE (Unverified Allergy, Unknown, 12/27/18) INTERFERON BETA-1B (Verified Allergy, Unknown, 11/01/12) COULDN'T WALK AFTER TAKING MEDICATION NITROFURANTOIN (Verified Allergy, Unknown, 11/19/09) SULFA (SULFONAMIDE ANTIBIOTICS) (Unverified Allergy, Unknown, 12/27/18) SULFAMETHOXAZOLE (Verified Allergy, Unknown, 11/19/09) TRIMETHOPRIM (Verified Allergy, Unknown, 11/19/09) Uncoded Allergies: COTRIM (Allergy, Unknown, 12/27/18) Subjective all noted, SP tube draining OK Objective Last 24 Hour Vital Signs Date Time Temp Pulse Resp B/P (MAP) Pulse Ox O2 Delivery O2 Flow Rate FiO2 04/20/19 07:58 98.3 99 18 115/68 (84) 93 04/20/19 04:00 99.1 107 18 113/62 (79) 94 04/20/19 03:35 100 04/20/19 00:00 99.4 128 19 132/74 (93) 96 04/19/19 23:35 126 04/19/19 21:00 Room Air 04/19/19 20:01 111 04/19/19 20:00 99.4 127 16 137/82 (100) 96 04/19/19 17:06 116 100/57 04/19/19 16:00 97.5 110 20 100/57 (71) 97 04/19/19 16:00 116 04/19/19 12:00 109 04/19/19 12:00 98.6 88 18 106/54 (71) 98 04/19/19 09:00 Room Air 04/19/19 08:55 82 122/67 Intake and Output 04/19/19 04/20/19 19:00 07:00 Intake Total 565.0 ml 1316.90 ml Output Total 1100 ml 700 ml Balance -535.0 ml 616.90 ml Intake Oral 380 ml 240 ml IV Total 185.0 ml 1076.90 ml Output Urine Total 1100 ml 700 ml # Voids 1 Microbiology Date/Time Source Procedure Growth Status 04/17/19 14:37 Urine,Clean Catch Urine Culture - Final Escherichia Coli Complete Current Medications Medications (Trade) Dose Ordered Sig/Fransisca Route PRN Reason Start Time Stop Time Status Last Admin Dose Admin Amlodipine Besylate (Norvasc) 5 mg BID ORAL 04/18/19 18:00 05/17/19 17:59 04/19/19 08:55 Baclofen (Lioresal) 10 mg THREE TIMES A DAY ORAL 04/18/19 18:00 05/17/19 17:59 04/19/19 17:14 Bisacodyl (Dulcolax) 5 mg DAILY ORAL 04/19/19 09:00 05/18/19 08:59 04/19/19 08:55 Heparin Sodium (Porcine) (Heparin 5000 units/ml) 5,000 units EVERY 12 HOURS SUBQ 04/19/19 21:00 05/19/19 20:59 04/19/19 21:08 Multivitamins (Multivitamins) 1 tab DAILY ORAL 04/19/19 09:00 05/18/19 08:59 04/19/19 08:55 Oxycodone/ Acetaminophen (Percocet 10/325) 1 tab Q4H PRN ORAL For Pain 04/18/19 16:18 04/25/19 16:17 04/19/19 21:07 Piperacillin Sod/ Tazobactam Sod 3.375 gm/Sodium Chloride 110 ml @ 27.5 mls/hr EVERY 8 HOURS IVPB 04/19/19 12:30 04/24/19 12:29 04/20/19 05:45 Sodium Chloride 1,000 ml @ 75 mls/hr [id number] IV 04/19/19 18:00 05/19/19 17:59 04/20/19 06:16 Vitamin D (Vitamin D) 1,000 intlu DAILY ORAL 04/19/19 09:00 05/18/19 08:59 04/19/19 08:56 Laboratory Tests 04/20/19 07:05: White Blood Count 14.9H, Red Blood Count 3.56L, Hemoglobin 9.0L, Hematocrit 28.7L, Mean Corpuscular Volume 81, Mean Corpuscular Hemoglobin 25.3L, Mean Corpuscular Hemoglobin Concent 31.4L, Red Cell Distribution Width 18.5H, Platelet Count 434, Mean Platelet Volume 5.2L, Neutrophils (%) (Auto) 77.1H, Lymphocytes (%) (Auto) 16.9L, Monocytes (%) (Auto) 2.5, Eosinophils (%) (Auto) 3.0, Basophils (%) (Auto) 0.5, Sodium Level [Pending], Potassium Level [Pending] , Chloride Level [Pending], Carbon Dioxide Level [Pending], Blood Urea Nitrogen [Pending], Creatinine [Pending], Estimat Glomerular Filtration Rate [Pending], Glucose Level [Pending], Calcium Level [Pending], Pro-B-Type Natriuretic Peptide [Pending] Height (Feet): 5 Height (Inches): 3.00 Weight (Pounds): 165 Objective exam stable SP tube in place, urine yellow with some debris Jah Syed MD Apr 20, 2019 08:04
--- NOTE | 2019-04-20 08:15 | NUR ---
NURSE NOTES: received pt in the bed, awake, verbal responsive, vital signs stable, no co pain, no SOB, respiration regular, tolerate diet well, appetite good, skin warm and dry to touch, dressing on sacral area dry and intact, bed in low position, call light within reach.
[2019-04-20 08:26] LABS: ANION GAP 6 mmol/L (5-15); BLOOD UREA NITROGEN 10 mg/dL (7-18); CALCIUM 8.5 MG/DL (8.5-10.1); CARBON DIOXIDE 28 MMOL/L (21-32); CHLORIDE 105 MMOL/L (98-107); CREATININE 0.6 MG/DL (0.55-1.30); POTASSIUM 4.4 MMOL/L (3.5-5.1); SODIUM 139 MMOL/L (136-145)
[2019-04-20] MEDS: Vitamin D 1000 IU Tab ORAL SCH (09:08)
[2019-04-20] MEDS: Bisacodyl EC 5mg tab ORAL SCH (09:08)
[2019-04-20] MEDS: Heparin 5000 units/ml inj SUBQ SCH ×2 (09:10→21:09)
--- NOTE | 2019-04-20 11:42 | Surgery Progress Note ---
Surgery Progress Note Subjective Additional Comments HD stable leukocytosis exam unchanged +BM Objective Last 24 Hour Vital Signs Date Time Temp Pulse Resp B/P (MAP) Pulse Ox O2 Delivery O2 Flow Rate FiO2 04/20/19 09:09 99 115/68 04/20/19 09:00 Room Air 04/20/19 07:58 98.3 99 18 115/68 (84) 93 04/20/19 04:00 99.1 107 18 113/62 (79) 94 04/20/19 03:35 100 04/20/19 00:00 99.4 128 19 132/74 (93) 96 04/19/19 23:35 126 04/19/19 21:00 Room Air 04/19/19 20:01 111 04/19/19 20:00 99.4 127 16 137/82 (100) 96 04/19/19 17:06 116 100/57 04/19/19 16:00 97.5 110 20 100/57 (71) 97 04/19/19 16:00 116 04/19/19 12:00 109 04/19/19 12:00 98.6 88 18 106/54 (71) 98 I&O Intake and Output 04/19/19 04/20/19 19:00 07:00 Intake Total 565.0 ml 1316.90 ml Output Total 1100 ml 700 ml Balance -535.0 ml 616.90 ml Intake Oral 380 ml 240 ml IV Total 185.0 ml 1076.90 ml Output Urine Total 1100 ml 700 ml # Voids 1 Dressing: saturated Wound: other Drains: other Cardiovascular: RSR Respiratory: decreased breath sounds Abdomen: soft, present bowel sounds, non-distended Extremities: no cyanosis Laboratory Tests Test 04/20/19 07:05 White Blood Count 14.9 K/UL (4.8-10.8) H Red Blood Count 3.56 M/UL (4.20-5.40) L Hemoglobin 9.0 G/DL (12.0-16.0) L Hematocrit 28.7 % (37.0-47.0) L Mean Corpuscular Volume 81 FL (80-99) Mean Corpuscular Hemoglobin 25.3 PG (27.0-31.0) L Mean Corpuscular Hemoglobin Concent 31.4 G/DL (32.0-36.0) L Red Cell Distribution Width 18.5 % (11.6-14.8) H Platelet Count 434 K/UL (150-450) Mean Platelet Volume 5.2 FL (6.5-10.1) L Neutrophils (%) (Auto) 77.1 % (45.0-75.0) H Lymphocytes (%) (Auto) 16.9 % (20.0-45.0) L Monocytes (%) (Auto) 2.5 % (1.0-10.0) Eosinophils (%) (Auto) 3.0 % (0.0-3.0) Basophils (%) (Auto) 0.5 % (0.0-2.0) Sodium Level 139 MMOL/L (136-145) Potassium Level 4.4 MMOL/L (3.5-5.1) Chloride Level 105 MMOL/L (98-107) Carbon Dioxide Level 28 MMOL/L (21-32) Anion Gap 6 mmol/L (5-15) Blood Urea Nitrogen 10 mg/dL (7-18) Creatinine 0.6 MG/DL (0.55-1.30) Estimat Glomerular Filtration Rate > 60 mL/min (>60) Glucose Level 76 MG/DL (74-106) Calcium Level 8.5 MG/DL (8.5-10.1) Pro-B-Type Natriuretic Peptide 351 pg/mL (0-125) H Plan Problems: (1) Sacral decubitus ulcer, stage IV Assessment & Plan: PT presented on admission in grossly unkempt state with multiple pressure injuries. Full thickness stage 4 pressure injury sacrococcygeal area(L)4cm x (W)2.5cm x (D)0.7cm. Biofilm at base of wound and bone is palpable. Additionally, surrounding areas of wound encompassing R and L buttocks and extending into both ischial regions are erythematous -moist with scattered areas of slough and scattered pink epithelial (L)14.5cm x (W)11cm. Full thickness pressure injury R buttocks with 80% slough (L)1.5cm x (W)1cm. Full thickness pressure injury R ischium . Base of wound has 100% slough. (L) (L )2.4cm x (W)3.5cm. Borders and surrounding areas are moist and viable. Tender when minimally palpated. Full thickness pressure injury lateral L tibia .base of wound with mixed eschar and slough . No odor noted .Small amt seropurulent exudate. periwound has darker skin tone with dry, scaly skin.(L)5cm x (W)2cm. Full thickness ulcer lateral L foot . Base of wound 50% viable ,50% slough.Borders are macerated. Periwound dry and flaky without erythema or fluctuance. Tx.Plan. Cleanse sacrococcygeal wound with saline. Apply Therahoney . Apply Moisture Barrier Paste to surrounding buttocks Cover with Optifoam drsg Daily and prn. Cleanse Wound R buttocks with saline. Apply Therahoney. Apply Moisture Barrier periwound. Cover with Optifoam Daily and prn. Cleanse R ischial wound with saline.Apply Therahoney. Apply Moisture Barrier periwound .Cover with Optifoam drsg Daily and prn. Apply Cavilon Skin Barrier to both heels. Cover each heel with Optifoam drsg. Change every 7 days and prn. APM/DESTIN Mattress. Reposition at least every 2hours or as tolerated. Off-load heels with pillow. (2) Abdominal pain Assessment & Plan: leukocytosis abd discomfort KUB with Findings: Severe fecal retention is noted. There is no evidence of abnormal gaseous distention of small bowel loops to suggest small bowel obstruction. Bones are demineralized. Degenerative and chronic changes are noted in the spine and bilateral hips. No acute osseous abnormality. Impression: Findings suggestive of marked rectal fecal retention/impaction. Enema bowel care diet will follow with recs thank you Niels Carroll Apr 20, 2019 11:42
[2019-04-20 12:00] VITALS: BP 123/88
--- NOTE | 2019-04-20 13:08 | General Progress Note ---
Assessment/Plan Assessment/Plan: Urinary tract infection Ecoli hypertension MS, severe multiple wounds abx continue zosyn IVF wound care dc planning to SNF tomorrow Subjective ROS Limited/Unobtainable: Yes Allergies: Coded Allergies: CEPHALEXIN (Verified Allergy, Unknown, 11/19/09) HYDROMORPHONE (Unverified Allergy, Unknown, 12/27/18) INTERFERON BETA-1B (Verified Allergy, Unknown, 11/01/12) COULDN'T WALK AFTER TAKING MEDICATION NITROFURANTOIN (Verified Allergy, Unknown, 11/19/09) SULFA (SULFONAMIDE ANTIBIOTICS) (Unverified Allergy, Unknown, 12/27/18) SULFAMETHOXAZOLE (Verified Allergy, Unknown, 11/19/09) TRIMETHOPRIM (Verified Allergy, Unknown, 11/19/09) Uncoded Allergies: COTRIM (Allergy, Unknown, 12/27/18) Objective Last 24 Hour Vital Signs Date Time Temp Pulse Resp B/P (MAP) Pulse Ox O2 Delivery O2 Flow Rate FiO2 04/20/19 12:00 96 04/20/19 12:00 99.0 102 18 123/88 (100) 98 04/20/19 09:09 99 115/68 04/20/19 09:00 Room Air 04/20/19 08:00 93 04/20/19 07:58 98.3 99 18 115/68 (84) 93 04/20/19 04:00 99.1 107 18 113/62 (79) 94 04/20/19 03:35 100 04/20/19 00:00 99.4 128 19 132/74 (93) 96 04/19/19 23:35 126 04/19/19 21:00 Room Air 04/19/19 20:01 111 04/19/19 20:00 99.4 127 16 137/82 (100) 96 04/19/19 17:06 116 100/57 04/19/19 16:00 97.5 110 20 100/57 (71) 97 04/19/19 16:00 116 Intake and Output 04/19/19 04/20/19 19:00 07:00 Intake Total 565.0 ml 1316.90 ml Output Total 1100 ml 700 ml Balance -535.0 ml 616.90 ml Intake Oral 380 ml 240 ml IV Total 185.0 ml 1076.90 ml Output Urine Total 1100 ml 700 ml # Voids 1 Laboratory Tests 04/20/19 07:05: White Blood Count 14.9H, Red Blood Count 3.56L, Hemoglobin 9.0L, Hematocrit 28.7L, Mean Corpuscular Volume 81, Mean Corpuscular Hemoglobin 25.3L, Mean Corpuscular Hemoglobin Concent 31.4L, Red Cell Distribution Width 18.5H, Platelet Count 434, Mean Platelet Volume 5.2L, Neutrophils (%) (Auto) 77.1H, Lymphocytes (%) (Auto) 16.9L, Monocytes (%) (Auto) 2.5, Eosinophils (%) (Auto) 3.0, Basophils (%) (Auto) 0.5, Sodium Level 139, Potassium Level 4.4, Chloride Level 105, Carbon Dioxide Level 28, Anion Gap 6, Blood Urea Nitrogen 10, Creatinine 0.6, Estimat Glomerular Filtration Rate > 60, Glucose Level 76, Calcium Level 8.5, Pro-B-Type Natriuretic Peptide 351H Height (Feet): 5 Height (Inches): 3.00 Weight (Pounds): 165 General Appearance: no apparent distress Neck: normal inspection Cardiovascular: normal rate Respiratory/Chest: lungs clear Neurologic: depressed affect Will Dunn MD Apr 20, 2019 13:08
--- NOTE | 2019-04-20 13:38 | NUR ---
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 99.1 HR 107 RR 18 B/P 113/62 RA 98% WBC 14.9 CHL 109 IS: IVF NS @ 75ML/HR ZOSYN IV HEPARIN SUBC TELE STATUS
--- NOTE | 2019-04-20 14:48 | NUR ---
RD ASSESSMENT & RECOMMENDATIONS SEE CARE ACTIVITY FOR COMPLETE ASSESSMENT DAILY ESTIMATED NEEDS: Needs based on Wounds, 53.5kg abw 25-30 kcals/kg 5389-9992 total kcals 1.25-1.5 g protein/kg 67-80 g total protein 25-30 mL/kg 5028-3258 total fluid mLs NUTRITION DIAGNOSIS: Increased kcal/prot intake needs R/T wound healing as evidenced by pt admitted w/ full thickness pressure injury at R buttocks, R ischium, lateral L tibia, and lateral L foot. CURRENT DIET:REGULAR, mech soft chopped PO DIET RECOMMENDATIONS: Low NA/ texture as tolerated or per [employer] ADDITIONAL RECOMMENDATIONS: * Calibrated bedscale wt for accurate CBW * Consider [employer] eval for appropriate texture * Wound healing: continue MVI : add Vit C 500mg BID, ZnSO4 220mg QD x 10 days : add Anival 1pkt BID
[2019-04-20 15:59] VITALS: BP 103/51
--- NOTE | 2019-04-20 17:34 | CDS Physician Query ---
Clarification is required for compliance, coding accuracy, and to reflect severity of illness for this patient Dear Dr. Will Dunn Date: 04/20/2019 Director Of [employer]/CDS Name: Marzena Rothman LINDA states: The patient was admitted through the emergency room with abdominal pain x few days. She has a suprapubic catheter. Her urine appeared cloudy...Urinary tract infection...MS, severe Please respond to the following question: Is there a causal relationship between the catheter and UTI? If so please state below. PHYSICIAN RESPONSE: [x] UTI due to indwelling catheter [] UTI unrelated to indwelling catheter [] Other [] Clinically undetermined Present on Admission: [x] Yes [] No [] Clinically Undetermined Physician signature Date Please also document in your Progress Notes and/or Discharge Summary and indicate if the condition was present on admission. GARY
--- NOTE | 2019-04-20 19:21 | NUR ---
HAND-OFF: Report given to RADHA GUERRERO.
--- NOTE | 2019-04-20 19:30 | NUR ---
NURSE NOTES: Received report from YOLANDA Novoa. Patient in bed resting, alert to name. Patient with no complaints of pain. Will continue to monitor.
[2019-04-20 20:00] VITALS: BP 105/51
[2019-04-21] VITALS: BP 126/72
[2019-04-21 04:00] VITALS: BP_SYST 112; BP_SYST 144; BP_DIAS 56; BP_DIAS 66
[2019-04-21] MEDS: Zosyn 3.375gm q8h **Extended infusion IVPB SCH ×6 (05:24→21:19)
--- NOTE | 2019-04-21 07:30 | NUR ---
NURSE NOTES: Nurse report given by YOLANDA Najera. Patient's stable, no s/s of acute distress or SOB. Bed at lowest position, break engaged, call light within reach. IV is running, no s/s of tenderness or redness, asymptomatic. Will continue to monitor.
--- NOTE | 2019-04-21 07:40 | NUR ---
HAND-OFF: Report given to YOLANDA Alanis. Patient stable at hand-off.
--- NOTE | 2019-04-21 07:58 | Urology Progress Note ---
Assessment/Plan Assessment/Plan: 1. Urinary retention with chronic suprapubic tube. 2. Neurogenic bladder. 3. Pyuria and probable colonized urine with possible UTI. 4. Hematuria. 5. Proteinuria. keep SP tube last replaced 04/18 hand irrigated and do PRN position is satisfactory abx added consider renal imaging study cysto later d/w Dr. Dunn Subjective Allergies: Coded Allergies: CEPHALEXIN (Verified Allergy, Unknown, 11/19/09) HYDROMORPHONE (Unverified Allergy, Unknown, 12/27/18) INTERFERON BETA-1B (Verified Allergy, Unknown, 11/01/12) COULDN'T WALK AFTER TAKING MEDICATION NITROFURANTOIN (Verified Allergy, Unknown, 11/19/09) SULFA (SULFONAMIDE ANTIBIOTICS) (Unverified Allergy, Unknown, 12/27/18) SULFAMETHOXAZOLE (Verified Allergy, Unknown, 11/19/09) TRIMETHOPRIM (Verified Allergy, Unknown, 11/19/09) Uncoded Allergies: COTRIM (Allergy, Unknown, 12/27/18) Subjective all noted, SP tube draining OK Objective Last 24 Hour Vital Signs Date Time Temp Pulse Resp B/P (MAP) Pulse Ox O2 Delivery O2 Flow Rate FiO2 04/21/19 04:00 79 04/21/19 04:00 97.7 95 18 144/66 (92) 92 04/21/19 00:00 96.9 76 19 126/72 (90) 97 04/21/19 00:00 97 04/20/19 21:00 Room Air 04/20/19 20:00 97.0 97 19 105/51 (69) 95 04/20/19 20:00 108 04/20/19 17:38 96 103/51 04/20/19 17:09 98.9 04/20/19 16:00 96 04/20/19 15:59 98.9 105 18 103/51 (68) 98 04/20/19 12:00 96 04/20/19 12:00 99.0 102 18 123/88 (100) 98 04/20/19 09:09 99 115/68 04/20/19 09:00 Room Air 04/20/19 08:00 93 Intake and Output 04/20/19 04/21/19 19:00 07:00 Intake Total 1600.0 ml 962.5 ml Output Total 500 ml 1300 ml Balance 1100.0 ml -337.5 ml Intake Oral 630 ml IV Total 970.0 ml 962.5 ml Output Urine Total 500 ml 1300 ml # Voids 1 Microbiology Date/Time Source Procedure Growth Status 04/17/19 14:37 Urine,Clean Catch Urine Culture - Final Escherichia Coli Complete Current Medications Medications (Trade) Dose Ordered Sig/Fransisca Route PRN Reason Start Time Stop Time Status Last Admin Dose Admin Amlodipine Besylate (Norvasc) 5 mg BID ORAL 04/18/19 18:00 05/17/19 17:59 04/20/19 09:09 Baclofen (Lioresal) 10 mg THREE TIMES A DAY ORAL 04/18/19 18:00 05/17/19 17:59 04/20/19 17:38 Bisacodyl (Dulcolax) 5 mg DAILY ORAL 04/19/19 09:00 05/18/19 08:59 04/20/19 09:08 Heparin Sodium (Porcine) (Heparin 5000 units/ml) 5,000 units EVERY 12 HOURS SUBQ 04/19/19 21:00 05/19/19 20:59 04/20/19 21:09 Multivitamins (Multivitamins) 1 tab DAILY ORAL 04/19/19 09:00 05/18/19 08:59 04/20/19 09:08 Oxycodone/ Acetaminophen (Percocet 10/325) 1 tab Q4H PRN ORAL For Pain 04/18/19 16:18 04/25/19 16:17 04/20/19 23:30 Piperacillin Sod/ Tazobactam Sod 3.375 gm/Sodium Chloride 110 ml @ 27.5 mls/hr EVERY 8 HOURS IVPB 04/19/19 12:30 04/24/19 12:29 04/21/19 05:24 Sodium Chloride 1,000 ml @ 75 mls/hr [id number] IV 04/19/19 18:00 05/19/19 17:59 04/20/19 21:09 Vitamin D (Vitamin D) 1,000 intlu DAILY ORAL 04/19/19 09:00 05/18/19 08:59 04/20/19 09:08 Height (Feet): 5 Height (Inches): 3.00 Weight (Pounds): 165 Objective exam stable SP tube in place, urine yellow with some debris Bamshad,Jah Jim MD Apr 21, 2019 07:58
[2019-04-21 08:00] VITALS: BP 136/67
--- NOTE | 2019-04-21 08:09 | Surgery Progress Note ---
Surgery Progress Note Subjective Additional Comments no acute events comfortable stable no complaints. Objective Last 24 Hour Vital Signs Date Time Temp Pulse Resp B/P (MAP) Pulse Ox O2 Delivery O2 Flow Rate FiO2 04/21/19 04:00 79 04/21/19 04:00 97.7 95 18 144/66 (92) 92 04/21/19 00:00 96.9 76 19 126/72 (90) 97 04/21/19 00:00 97 04/20/19 21:00 Room Air 04/20/19 20:00 97.0 97 19 105/51 (69) 95 04/20/19 20:00 108 04/20/19 17:38 96 103/51 04/20/19 17:09 98.9 04/20/19 16:00 96 04/20/19 15:59 98.9 105 18 103/51 (68) 98 04/20/19 12:00 96 04/20/19 12:00 99.0 102 18 123/88 (100) 98 04/20/19 09:09 99 115/68 04/20/19 09:00 Room Air I&O Intake and Output 04/20/19 04/21/19 19:00 07:00 Intake Total 1600.0 ml 962.5 ml Output Total 500 ml 1300 ml Balance 1100.0 ml -337.5 ml Intake Oral 630 ml IV Total 970.0 ml 962.5 ml Output Urine Total 500 ml 1300 ml # Voids 1 Dressing: saturated Wound: clean Cardiovascular: RSR Respiratory: clear Abdomen: soft, non-tender, present bowel sounds, non-distended Extremities: no cyanosis, other Plan Problems: (1) Sacral decubitus ulcer, stage IV Assessment & Plan: PT presented on admission in grossly unkempt state with multiple pressure injuries. Full thickness stage 4 pressure injury sacrococcygeal area(L)4cm x (W)2.5cm x (D)0.7cm. Biofilm at base of wound and bone is palpable. Additionally, surrounding areas of wound encompassing R and L buttocks and extending into both ischial regions are erythematous -moist with scattered areas of slough and scattered pink epithelial (L)14.5cm x (W)11cm. Full thickness pressure injury R buttocks with 80% slough (L)1.5cm x (W)1cm. Full thickness pressure injury R ischium . Base of wound has 100% slough. (L) (L )2.4cm x (W)3.5cm. Borders and surrounding areas are moist and viable. Tender when minimally palpated. Full thickness pressure injury lateral L tibia .base of wound with mixed eschar and slough . No odor noted .Small amt seropurulent exudate. periwound has darker skin tone with dry, scaly skin.(L)5cm x (W)2cm. Full thickness ulcer lateral L foot . Base of wound 50% viable ,50% slough.Borders are macerated. Periwound dry and flaky without erythema or fluctuance. Tx.Plan. Cleanse sacrococcygeal wound with saline. Apply Therahoney . Apply Moisture Barrier Paste to surrounding buttocks Cover with Optifoam drsg Daily and prn. Cleanse Wound R buttocks with saline. Apply Therahoney. Apply Moisture Barrier periwound. Cover with Optifoam Daily and prn. Cleanse R ischial wound with saline.Apply Therahoney. Apply Moisture Barrier periwound .Cover with Optifoam drsg Daily and prn. Apply Cavilon Skin Barrier to both heels. Cover each heel with Optifoam drsg. Change every 7 days and prn. APM/DESTIN Mattress. Reposition at least every 2hours or as tolerated. Off-load heels with pillow. cont with above care orders upon discharge (2) Abdominal pain Assessment & Plan: leukocytosis abd discomfort KUB with Findings: Severe fecal retention is noted. There is no evidence of abnormal gaseous distention of small bowel loops to suggest small bowel obstruction. Bones are demineralized. Degenerative and chronic changes are noted in the spine and bilateral hips. No acute osseous abnormality. Impression: Findings suggestive of marked rectal fecal retention/impaction. Enema bowel care diet will follow with recs thank you Niels Carroll Apr 21, 2019 08:09
--- NOTE | 2019-04-21 08:28 | NUR ---
SS note Patient is pending Med[facility] frandy for long term care social worker SNF (public guardian also pending).
--- NOTE | 2019-04-21 08:33 | General Progress Note ---
Assessment/Plan Assessment/Plan: Urinary tract infection Ecoli hypertension MS, severe multiple wounds abx continue zosyn dc IVF wound care dc planning to SNF today pdg labs she says no to snf but I do not believe she is competent son is CG and reportedly incarcerated Subjective ROS Limited/Unobtainable: Yes Allergies: Coded Allergies: CEPHALEXIN (Verified Allergy, Unknown, 11/19/09) HYDROMORPHONE (Unverified Allergy, Unknown, 12/27/18) INTERFERON BETA-1B (Verified Allergy, Unknown, 11/01/12) COULDN'T WALK AFTER TAKING MEDICATION NITROFURANTOIN (Verified Allergy, Unknown, 11/19/09) SULFA (SULFONAMIDE ANTIBIOTICS) (Unverified Allergy, Unknown, 12/27/18) SULFAMETHOXAZOLE (Verified Allergy, Unknown, 11/19/09) TRIMETHOPRIM (Verified Allergy, Unknown, 11/19/09) Uncoded Allergies: COTRIM (Allergy, Unknown, 12/27/18) Objective Last 24 Hour Vital Signs Date Time Temp Pulse Resp B/P (MAP) Pulse Ox O2 Delivery O2 Flow Rate FiO2 04/21/19 08:00 97.3 94 18 136/67 (90) 98 04/21/19 04:00 79 04/21/19 04:00 97.7 95 18 144/66 (92) 92 04/21/19 00:00 96.9 76 19 126/72 (90) 97 04/21/19 00:00 97 04/20/19 21:00 Room Air 04/20/19 20:00 97.0 97 19 105/51 (69) 95 04/20/19 20:00 108 04/20/19 17:38 96 103/51 04/20/19 17:09 98.9 04/20/19 16:00 96 04/20/19 15:59 98.9 105 18 103/51 (68) 98 04/20/19 12:00 96 04/20/19 12:00 99.0 102 18 123/88 (100) 98 04/20/19 09:09 99 115/68 04/20/19 09:00 Room Air Intake and Output 04/20/19 04/21/19 19:00 07:00 Intake Total 1600.0 ml 962.5 ml Output Total 500 ml 1300 ml Balance 1100.0 ml -337.5 ml Intake Oral 630 ml IV Total 970.0 ml 962.5 ml Output Urine Total 500 ml 1300 ml # Voids 1 Height (Feet): 5 Height (Inches): 3.00 Weight (Pounds): 165 Neck: normal inspection Cardiovascular: normal rate Respiratory/Chest: lungs clear Will Dunn MD Apr 21, 2019 08:33
[2019-04-21 08:41] LABS: BASOPHILS % (AUTO) 0.7 % (0.0-2.0); EOSINOPHILS % (AUTO) 4.2 % (0.0-3.0); HEMATOCRIT 28.2 % (37.0-47.0); HEMOGLOBIN 8.7 G/DL (12.0-16.0); LYMPHOCYTES % (AUTO) 17.7 % (20.0-45.0); MEAN CORPUSCULAR VOLUME 80 FL (80-99); MONOCYTES % (AUTO) 2.8 % (1.0-10.0); NEUTROPHILS % (AUTO) 74.6 % (45.0-75.0); PLATELET COUNT 453 K/UL (150-450); RED BLOOD COUNT 3.51 M/UL (4.20-5.40); RED CELL DISTRIBUTION WIDTH 18.7 % (11.6-14.8); WHITE BLOOD COUNT 11.6 K/UL (4.8-10.8)
[2019-04-21 08:48] LABS: ANION GAP 7 mmol/L (5-15); BLOOD UREA NITROGEN 6 mg/dL (7-18); CALCIUM 8.9 MG/DL (8.5-10.1); CARBON DIOXIDE 26 MMOL/L (21-32); CHLORIDE 108 MMOL/L (98-107); CREATININE 0.6 MG/DL (0.55-1.30); POTASSIUM 3.9 MMOL/L (3.5-5.1); SODIUM 140 MMOL/L (136-145)
[2019-04-21] MEDS: Bisacodyl EC 5mg tab ORAL SCH (09:21)
[2019-04-21] MEDS: Vitamin D 1000 IU Tab ORAL SCH (09:21)
[2019-04-21] MEDS: Heparin 5000 units/ml inj SUBQ SCH ×2 (09:23→21:18)
--- NOTE | 2019-04-21 09:44 | NUR ---
*-* INSURANCE *-* ALL CLINICALS AND REVIEWS HAVE BEEN FAXED TO: [employer] [phone] Work Work
[2019-04-21 12:00] VITALS: BP 113/51
[2019-04-21] MEDS ORDERED: Tubing IV Secondary IV ONE (15:34)
[2019-04-21] MEDS ORDERED: NS 275ml ONE (15:34)
[2019-04-21] MEDS ORDERED: Sterile Water Irrig 1000ml IRRIG ONE (15:34)
--- NOTE | 2019-04-21 15:52 | NUR ---
RANCH HAND LIVESTOCKSCRAP BALLER SI: UTI T. 97.5 HR 90 RR 18 B/P 113/51 RA 98% WBC 11.6 IS: IVF NS@ 75ML/HR ZOSYN IV HEPARIN SUBC BACLOFEN TELE STATUS
[2019-04-21 16:00] VITALS: BP 112/57
--- NOTE | 2019-04-21 19:30 | NUR ---
HAND-OFF: Report given to YOLANDA Young. Plan of care endorsed. Patient's in stable condition.
--- NOTE | 2019-04-21 19:35 | NUR ---
NURSE NOTES: Received report from YOLANDA Alanis. Pt is resting in bed. In no acute distress. IV line intact and patent. Bed in lowest position, call light within reach. Will continue plan of care.
[2019-04-21 20:00] VITALS: BP 135/74
[2019-04-22] VITALS: BP 139/73
[2019-04-22 04:00] VITALS: BP 136/69
[2019-04-22] MEDS: Zosyn 3.375gm q8h **Extended infusion IVPB SCH ×6 (06:05→21:47)
--- NOTE | 2019-04-22 07:15 | NUR ---
HAND-OFF: Report given to YOLANDA Alanis.
--- NOTE | 2019-04-22 07:15 | NUR ---
NURSE NOTES: Nurse report given by YOLANDA Young. Patient's awake, AO x 1, comfortable, no s/s of acute distress or SOB. IV is running fluid, patent and asymptomatic. Will continue to monitor.
--- NOTE | 2019-04-22 07:15 | NUR ---
NURSE NOTES: Bed at lowest position, break engaged, call light within reach.
[2019-04-22 08:00] VITALS: BP 142/70
--- NOTE | 2019-04-22 08:23 | Urology Progress Note ---
Assessment/Plan Assessment/Plan: 1. Urinary retention with chronic suprapubic tube. 2. Neurogenic bladder. 3. Pyuria and probable colonized urine with possible UTI. 4. Hematuria. 5. Proteinuria. keep SP tube last replaced 04/18 hand irrigated and do PRN position is satisfactory abx added consider renal imaging study cysto later Subjective Allergies: Coded Allergies: CEPHALEXIN (Verified Allergy, Unknown, 11/19/09) HYDROMORPHONE (Unverified Allergy, Unknown, 12/27/18) INTERFERON BETA-1B (Verified Allergy, Unknown, 11/01/12) COULDN'T WALK AFTER TAKING MEDICATION NITROFURANTOIN (Verified Allergy, Unknown, 11/19/09) SULFA (SULFONAMIDE ANTIBIOTICS) (Unverified Allergy, Unknown, 12/27/18) SULFAMETHOXAZOLE (Verified Allergy, Unknown, 11/19/09) TRIMETHOPRIM (Verified Allergy, Unknown, 11/19/09) Uncoded Allergies: COTRIM (Allergy, Unknown, 12/27/18) Subjective all noted, SP tube draining OK Objective Last 24 Hour Vital Signs Date Time Temp Pulse Resp B/P (MAP) Pulse Ox O2 Delivery O2 Flow Rate FiO2 04/22/19 08:14 Room Air 04/22/19 04:00 97.2 87 20 136/69 (91) 98 04/22/19 04:00 87 04/22/19 00:00 102 04/22/19 00:00 97.9 102 20 139/73 (95) 98 04/21/19 21:00 Room Air 04/21/19 20:00 98.8 103 20 135/74 (94) 98 04/21/19 20:00 103 04/21/19 19:07 98 112/57 04/21/19 16:00 93 04/21/19 16:00 97.7 98 18 112/57 (75) 98 04/21/19 12:00 86 04/21/19 12:00 97.5 90 18 113/51 (71) 94 04/21/19 09:21 94 136/67 04/21/19 09:00 Room Air Intake and Output 04/21/19 04/22/19 19:00 07:00 Intake Total 840 ml 1123.75 ml Output Total 450 ml 1500 ml Balance 390 ml -376.25 ml Intake Oral 840 ml 120 ml IV Total 1003.75 ml Output Urine Total 450 ml 1500 ml Microbiology Date/Time Source Procedure Growth Status 04/17/19 14:37 Urine,Clean Catch Urine Culture - Final Escherichia Coli Complete Current Medications Medications (Trade) Dose Ordered Sig/Franissca Route PRN Reason Start Time Stop Time Status Last Admin Dose Admin Amlodipine Besylate (Norvasc) 5 mg BID ORAL 04/18/19 18:00 05/17/19 17:59 04/21/19 19:07 Baclofen (Lioresal) 10 mg THREE TIMES A DAY ORAL 04/18/19 18:00 05/17/19 17:59 04/21/19 19:07 Bisacodyl (Dulcolax) 5 mg DAILY ORAL 04/19/19 09:00 05/18/19 08:59 04/21/19 09:21 Heparin Sodium (Porcine) (Heparin 5000 units/ml) 5,000 units EVERY 12 HOURS SUBQ 04/19/19 21:00 05/19/19 20:59 04/21/19 21:18 Multivitamins (Multivitamins) 1 tab DAILY ORAL 04/19/19 09:00 05/18/19 08:59 04/21/19 09:21 Oxycodone/ Acetaminophen (Percocet 10/325) 1 tab Q4H PRN ORAL For Pain 04/18/19 16:18 04/25/19 16:17 04/22/19 04:27 Piperacillin Sod/ Tazobactam Sod 3.375 gm/Sodium Chloride 110 ml @ 27.5 mls/hr EVERY 8 HOURS IVPB 04/19/19 12:30 04/24/19 12:29 04/22/19 06:05 Sodium Chloride 1,000 ml @ 75 mls/hr [id number] IV 04/19/19 18:00 05/19/19 17:59 04/22/19 01:57 Vitamin D (Vitamin D) 1,000 intlu DAILY ORAL 04/19/19 09:00 05/18/19 08:59 04/21/19 09:21 Laboratory Tests 04/21/19 08:30: White Blood Count 11.6H, Red Blood Count 3.51L, Hemoglobin 8.7L, Hematocrit 28.2L, Mean Corpuscular Volume 80, Mean Corpuscular Hemoglobin 24.8L, Mean Corpuscular Hemoglobin Concent 30.8L, Red Cell Distribution Width 18.7H, Platelet Count 453H, Mean Platelet Volume 5.1L, Neutrophils (%) (Auto) 74.6, Lymphocytes (%) (Auto) 17.7L, Monocytes (%) (Auto) 2.8, Eosinophils (%) (Auto) 4.2H, Basophils (%) (Auto) 0.7, Sodium Level 140, Potassium Level 3.9, Chloride Level 108H, Carbon Dioxide Level 26, Anion Gap 7, Blood Urea Nitrogen 6L, Creatinine 0.6, Estimat Glomerular Filtration Rate > 60, Glucose Level 92, Calcium Level 8.9 Height (Feet): 5 Height (Inches): 3.00 Weight (Pounds): 141 Objective exam stable SP tube in place, urine yellow with some debris Jah Syed MD Apr 22, 2019 08:23
[2019-04-22] MEDS: Vitamin D 1000 IU Tab ORAL SCH (09:00)
[2019-04-22] MEDS: Bisacodyl EC 5mg tab ORAL SCH (11:05)
[2019-04-22] MEDS: Heparin 5000 units/ml inj SUBQ SCH ×2 (11:09→20:59)
[2019-04-22 12:00] VITALS: BP 139/82
--- NOTE | 2019-04-22 13:31 | General Progress Note ---
Assessment/Plan Assessment/Plan: Urinary tract infection Ecoli hypertension MS, severe multiple wounds abx continue zosyn wound care dc planning to SNF or home she says she has CGs at home case mgmt to assist ready for dc Subjective Constitutional: Reports: no symptoms Allergies: Coded Allergies: CEPHALEXIN (Verified Allergy, Unknown, 11/19/09) HYDROMORPHONE (Unverified Allergy, Unknown, 12/27/18) INTERFERON BETA-1B (Verified Allergy, Unknown, 11/01/12) COULDN'T WALK AFTER TAKING MEDICATION NITROFURANTOIN (Verified Allergy, Unknown, 11/19/09) SULFA (SULFONAMIDE ANTIBIOTICS) (Unverified Allergy, Unknown, 12/27/18) SULFAMETHOXAZOLE (Verified Allergy, Unknown, 11/19/09) TRIMETHOPRIM (Verified Allergy, Unknown, 11/19/09) Uncoded Allergies: COTRIM (Allergy, Unknown, 12/27/18) Objective Last 24 Hour Vital Signs Date Time Temp Pulse Resp B/P (MAP) Pulse Ox O2 Delivery O2 Flow Rate FiO2 04/22/19 12:00 98.4 99 20 139/82 (101) 98 04/22/19 11:05 96 142/70 04/22/19 08:14 Room Air 04/22/19 08:00 93 04/22/19 08:00 99.0 96 18 142/70 (94) 100 04/22/19 04:00 97.2 87 20 136/69 (91) 98 04/22/19 04:00 87 04/22/19 00:00 102 04/22/19 00:00 97.9 102 20 139/73 (95) 98 04/21/19 21:00 Room Air 04/21/19 20:00 98.8 103 20 135/74 (94) 98 04/21/19 20:00 103 04/21/19 19:07 98 112/57 04/21/19 16:00 93 04/21/19 16:00 97.7 98 18 112/57 (75) 98 Intake and Output 04/21/19 04/22/19 18:59 06:59 Intake Total 840 ml 1048.75 ml Output Total 450 ml 1500 ml Balance 390 ml -451.25 ml Intake Oral 840 ml 120 ml IV Total 928.75 ml Output Urine Total 450 ml 1500 ml Height (Feet): 5 Height (Inches): 3.00 Weight (Pounds): 141 General Appearance: no apparent distress Cardiovascular: normal rate Respiratory/Chest: lungs clear Will Dunn MD Apr 22, 2019 13:31
--- NOTE | 2019-04-22 13:42 | NUR ---
CASE MANGER REVIEW SI: UTI T. 97.4 HR 107 RR 20 B/P 139/73 IS: IVF NS @ 75ML/HR ZOSYN IV HEPARIN SUBC BACLOFEN PO DISCHARGE PLANNING HOME VS SNF TELE STATUS
[2019-04-22 16:00] VITALS: BP 158/87
--- NOTE | 2019-04-22 17:21 | Surgery Progress Note ---
Surgery Progress Note Subjective Additional Comments leukocytosis improved no acute events states she is comfortable without complaints Objective Last 24 Hour Vital Signs Date Time Temp Pulse Resp B/P (MAP) Pulse Ox O2 Delivery O2 Flow Rate FiO2 04/22/19 16:00 98.6 97 20 158/87 (110) 100 04/22/19 16:00 110 04/22/19 12:00 98 04/22/19 12:00 98.4 99 20 139/82 (101) 98 04/22/19 11:05 96 142/70 04/22/19 08:14 Room Air 04/22/19 08:00 93 04/22/19 08:00 99.0 96 18 142/70 (94) 100 04/22/19 04:00 97.2 87 20 136/69 (91) 98 04/22/19 04:00 87 04/22/19 00:00 102 04/22/19 00:00 97.9 102 20 139/73 (95) 98 04/21/19 21:00 Room Air 04/21/19 20:00 98.8 103 20 135/74 (94) 98 04/21/19 20:00 103 04/21/19 19:07 98 112/57 I&O Intake and Output 04/21/19 04/22/19 19:00 07:00 Intake Total 840 ml 1123.75 ml Output Total 450 ml 1500 ml Balance 390 ml -376.25 ml Intake Oral 840 ml 120 ml IV Total 1003.75 ml Output Urine Total 450 ml 1500 ml Dressing: dry Wound: clean Cardiovascular: RSR Respiratory: clear Abdomen: soft, non-tender, present bowel sounds Extremities: no edema, no tenderness Plan Problems: (1) Sacral decubitus ulcer, stage IV Assessment & Plan: PT presented on admission in grossly unkempt state with multiple pressure injuries. Full thickness stage 4 pressure injury sacrococcygeal area(L)4cm x (W)2.5cm x (D)0.7cm. Biofilm at base of wound and bone is palpable. Additionally, surrounding areas of wound encompassing R and L buttocks and extending into both ischial regions are erythematous -moist with scattered areas of slough and scattered pink epithelial (L)14.5cm x (W)11cm. Full thickness pressure injury R buttocks with 80% slough (L)1.5cm x (W)1cm. Full thickness pressure injury R ischium . Base of wound has 100% slough. (L) (L )2.4cm x (W)3.5cm. Borders and surrounding areas are moist and viable. Tender when minimally palpated. Full thickness pressure injury lateral L tibia .base of wound with mixed eschar and slough . No odor noted .Small amt seropurulent exudate. periwound has darker skin tone with dry, scaly skin.(L)5cm x (W)2cm. Full thickness ulcer lateral L foot . Base of wound 50% viable ,50% slough.Borders are macerated. Periwound dry and flaky without erythema or fluctuance. Tx.Plan. Cleanse sacrococcygeal wound with saline. Apply Therahoney . Apply Moisture Barrier Paste to surrounding buttocks Cover with Optifoam drsg Daily and prn. Cleanse Wound R buttocks with saline. Apply Therahoney. Apply Moisture Barrier periwound. Cover with Optifoam Daily and prn. Cleanse R ischial wound with saline.Apply Therahoney. Apply Moisture Barrier periwound .Cover with Optifoam drsg Daily and prn. Apply Cavilon Skin Barrier to both heels. Cover each heel with Optifoam drsg. Change every 7 days and prn. APM/DESTIN Mattress. Reposition at least every 2hours or as tolerated. Off-load heels with pillow. cont with above care orders upon discharge (2) Abdominal pain Assessment & Plan: leukocytosis abd discomfort KUB with Findings: Severe fecal retention is noted. There is no evidence of abnormal gaseous distention of small bowel loops to suggest small bowel obstruction. Bones are demineralized. Degenerative and chronic changes are noted in the spine and bilateral hips. No acute osseous abnormality. Impression: Findings suggestive of marked rectal fecal retention/impaction. Enema bowel care diet will follow with recs thank you Niels Carroll Apr 22, 2019 17:21
--- NOTE | 2019-04-22 17:34 | NUR ---
DIE STAMPING PRESS OPERATOR NOTES SPOKE WITH SHEMAR PT'S CAREGIVER, PER SHEMAR SHE LIVES WITH THE PT AND TAKES CARE OF HER. OK TO SEND HOME, SHEMAR WILL BE HOME TO RECEIVE THE PT. SHEMAR SAEED NOT HAVE A WORKING TELEPHONE NUMBER PROVIDED ME WITH CHAPARRITA HER BOYFRIENDS NUMBER, HE WILL DELIVER ALL MESSAGES. CHAPARRITA [phone] (SHEMAR'S BOYFRIEND)
--- NOTE | 2019-04-22 19:30 | NUR ---
HAND-OFF: Report given to YOLANDA Rodriguez. Plan of care endorsed
--- NOTE | 2019-04-22 19:30 | NUR ---
NURSE NOTES: Received patient awake, lying in semi-burgess's; resting comfortably. A/O x 4. Denies pain at this time. No signs of cardio-respiratory distress. Checked IV site intact and flushed. No signs of erythema, bleeding or infiltration noted. With suprapubic catheter intact draining well to gravity. Patient is on P200 low air loss mattress for appropriate wound management. Bed at lowest position, brakes on, siderails x 3. Comfort care provided. Call light within reach. Will continue to monitor.
[2019-04-22 20:00] VITALS: BP 126/64
[2019-04-23] VITALS: BP 144/75
--- NOTE | 2019-04-23 03:04 | NUR ---
NURSE NOTES: Rested well, no significant change of condition noted throughout the night. Safety maintained.
[2019-04-23 04:00] VITALS: BP 150/90
[2019-04-23] MEDS: Zosyn 3.375gm q8h **Extended infusion IVPB SCH ×6 (06:10→21:43)
[2019-04-23 07:14] LABS: ALANINE AMINOTRANSFERASE 13 U/L (12-78); ALBUMIN 2.2 G/DL (3.4-5.0); ALBUMIN/GLOBULIN RATIO 0.4 (1.0-2.7); ALKALINE PHOSPHATASE 113 U/L (46-116); ANION GAP 8 mmol/L (5-15); ASPARTATE AMINO TRANSFERASE 12 U/L (15-37); BILIRUBIN,TOTAL 0.2 MG/DL (0.2-1.0); BLOOD UREA NITROGEN 6 mg/dL (7-18); CALCIUM 8.8 MG/DL (8.5-10.1); CARBON DIOXIDE 24 MMOL/L (21-32); CHLORIDE 108 MMOL/L (98-107); CREATININE 0.6 MG/DL (0.55-1.30); POTASSIUM 3.7 MMOL/L (3.5-5.1); SODIUM 140 MMOL/L (136-145)
[2019-04-23 07:36] LABS: BASOPHILS % (AUTO) 0.6 % (0.0-2.0); EOSINOPHILS % (AUTO) 4.5 % (0.0-3.0); HEMATOCRIT 28.8 % (37.0-47.0); HEMOGLOBIN 8.9 G/DL (12.0-16.0); LYMPHOCYTES % (AUTO) 30.2 % (20.0-45.0); MEAN CORPUSCULAR VOLUME 82 FL (80-99); MONOCYTES % (AUTO) 5.1 % (1.0-10.0); NEUTROPHILS % (AUTO) 59.6 % (45.0-75.0); PLATELET COUNT 432 K/UL (150-450); RED BLOOD COUNT 3.52 M/UL (4.20-5.40); RED CELL DISTRIBUTION WIDTH 19.3 % (11.6-14.8); WHITE BLOOD COUNT 8.8 K/UL (4.8-10.8)
--- NOTE | 2019-04-23 07:44 | NUR ---
HAND-OFF: Report given to YOLANDA Guevara. Plan of care endorsed.
--- NOTE | 2019-04-23 07:45 | NUR ---
NURSE NOTES: Received patient awake, eating breakfast in bed, A/O x 4. Denies pain at this time. No signs of distress. IV site intact, patent, and flushed. No signs of erythema, bleeding or infiltration noted. With suprapubic catheter intact draining well to gravity. Patient is on P200 low air loss mattress for appropriate wound management. Bed at lowest position, brakes on, siderails x 3. Comfort care provided. Call light within reach. Will continue with the plan of care.
--- NOTE | 2019-04-23 07:57 | Urology Progress Note ---
Assessment/Plan Assessment/Plan: 1. Urinary retention with chronic suprapubic tube. 2. Neurogenic bladder. 3. Pyuria and probable colonized urine with possible UTI. 4. Hematuria. 5. Proteinuria. keep SP tube last replaced 04/18 hand irrigated and do PRN position is satisfactory abx added consider renal imaging study cysto later Subjective Allergies: Coded Allergies: CEPHALEXIN (Verified Allergy, Unknown, 11/19/09) HYDROMORPHONE (Unverified Allergy, Unknown, 12/27/18) INTERFERON BETA-1B (Verified Allergy, Unknown, 11/01/12) COULDN'T WALK AFTER TAKING MEDICATION NITROFURANTOIN (Verified Allergy, Unknown, 11/19/09) SULFA (SULFONAMIDE ANTIBIOTICS) (Unverified Allergy, Unknown, 12/27/18) SULFAMETHOXAZOLE (Verified Allergy, Unknown, 11/19/09) TRIMETHOPRIM (Verified Allergy, Unknown, 11/19/09) Uncoded Allergies: COTRIM (Allergy, Unknown, 12/27/18) Subjective all noted, SP tube draining OK Objective Last 24 Hour Vital Signs Date Time Temp Pulse Resp B/P (MAP) Pulse Ox O2 Delivery O2 Flow Rate FiO2 04/23/19 04:00 87 04/23/19 04:00 98.7 95 18 150/90 (110) 98 04/23/19 00:00 96 04/23/19 00:00 99.0 99 18 144/75 (98) 98 04/22/19 21:00 Room Air 04/22/19 20:00 103 04/22/19 20:00 99.1 99 20 126/64 (84) 97 04/22/19 17:41 110 158/87 04/22/19 16:00 98.6 97 20 158/87 (110) 100 04/22/19 16:00 110 04/22/19 12:00 98 04/22/19 12:00 98.4 99 20 139/82 (101) 98 04/22/19 11:05 96 142/70 04/22/19 08:14 Room Air 04/22/19 08:00 93 04/22/19 08:00 99.0 96 18 142/70 (94) 100 Intake and Output 04/22/19 04/23/19 19:00 07:00 Intake Total 360 ml 882.9 ml Output Total 2400 ml 1200 ml Balance -2040 ml -317.1 ml Intake Oral 360 ml IV Total 882.9 ml Output Urine Total 2400 ml 1200 ml Microbiology Date/Time Source Procedure Growth Status 04/17/19 14:37 Urine,Clean Catch Urine Culture - Final Escherichia Coli Complete Current Medications Medications (Trade) Dose Ordered Sig/Fransisca Route PRN Reason Start Time Stop Time Status Last Admin Dose Admin Amlodipine Besylate (Norvasc) 5 mg BID ORAL 04/18/19 18:00 05/17/19 17:59 04/22/19 17:41 Baclofen (Lioresal) 10 mg THREE TIMES A DAY ORAL 04/18/19 18:00 05/17/19 17:59 04/22/19 17:41 Bisacodyl (Dulcolax) 5 mg DAILY ORAL 04/19/19 09:00 05/18/19 08:59 04/22/19 11:05 Heparin Sodium (Porcine) (Heparin 5000 units/ml) 5,000 units EVERY 12 HOURS SUBQ 04/19/19 21:00 05/19/19 20:59 04/22/19 20:59 Multivitamins (Multivitamins) 1 tab DAILY ORAL 04/19/19 09:00 05/18/19 08:59 04/22/19 11:05 Oxycodone/ Acetaminophen (Percocet 10/325) 1 tab Q4H PRN ORAL For Pain 04/18/19 16:18 04/25/19 16:17 04/22/19 21:01 Piperacillin Sod/ Tazobactam Sod 3.375 gm/Sodium Chloride 110 ml @ 27.5 mls/hr EVERY 8 HOURS IVPB 04/19/19 12:30 04/24/19 12:29 04/23/19 06:10 Sodium Chloride 1,000 ml @ 75 mls/hr [id number] IV 04/19/19 18:00 05/19/19 17:59 04/23/19 02:00 Vitamin D (Vitamin D) 1,000 intlu DAILY ORAL 04/19/19 09:00 05/18/19 08:59 04/22/19 09:00 Laboratory Tests 04/23/19 06:36: White Blood Count 8.8, Red Blood Count 3.52L, Hemoglobin 8.9L, Hematocrit 28.8L , Mean Corpuscular Volume 82, Mean Corpuscular Hemoglobin 25.2L, Mean Corpuscular Hemoglobin Concent 30.8L, Red Cell Distribution Width 19.3H, Platelet Count 432, Mean Platelet Volume 4.9L, Neutrophils (%) (Auto) 59.6, Lymphocytes (%) (Auto) 30.2, Monocytes (%) (Auto) 5.1, Eosinophils (%) (Auto) 4.5H, Basophils (%) (Auto) 0.6, Sodium Level 140, Potassium Level 3.7, Chloride Level 108H, Carbon Dioxide Level 24, Anion Gap 8, Blood Urea Nitrogen 6L, Creatinine 0.6, Estimat Glomerular Filtration Rate > 60, Glucose Level 74, Calcium Level 8.8, Total Bilirubin 0.2, Aspartate Amino Transf (AST/SGOT) 12L, Alanine Aminotransferase (ALT/SGPT) 13, Alkaline Phosphatase 113, Total Protein 7.7, Albumin 2.2L, Globulin 5.5, Albumin/Globulin Ratio 0.4L Height (Feet): 5 Height (Inches): 3.00 Weight (Pounds): 141 Objective exam stable SP tube in place, urine yellow with some debris Jah Syed MD Apr 23, 2019 07:57
[2019-04-23 08:00] VITALS: BP 151/86
[2019-04-23] MEDS: Vitamin D 1000 IU Tab ORAL SCH (08:28)
[2019-04-23] MEDS: Bisacodyl EC 5mg tab ORAL SCH (08:28)
[2019-04-23] MEDS: Heparin 5000 units/ml inj SUBQ SCH ×2 (08:31→21:59)
--- NOTE | 2019-04-23 10:23 | NUR ---
SS note This Sw received a voice message from sister, Guerita @ [phone] regarding concerns she has for patient. This Sw left a message to return to this SW call.
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
[2019-04-23 12:00] VITALS: BP 143/72
--- NOTE | 2019-04-23 13:40 | NUR ---
*-* DISCHARGE PLANNING *-* PATIENT HAS BEEN REFERRED TO: 1. [facility] P: [phone] F: [phone] 2. [facility] P: [phone] F: [phone] 3. [facility] P: [phone] F: [phone]
--- NOTE | 2019-04-23 13:40 | NUR ---
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 97.2 HR 102 RR 20 B/P 139/73 RA 98% IS: IVF NS @ 75ML/HR ZOSYN IV HEPARIN SUBC. BACLOFEN PO DCP TELE STATUS
--- NOTE | 2019-04-23 13:46 | NUR ---
*-* INSURANCE *-* UPDATED CLINICALS AND REVIEWS HAVE BEEN FAXED TO: [employer] [employer]:[facility] [phone] Work Work
--- NOTE | 2019-04-23 14:20 | Surgery Progress Note ---
Surgery Progress Note Subjective Symptoms: improved, tolerating diet, passing flatus Objective Last 24 Hour Vital Signs Date Time Temp Pulse Resp B/P (MAP) Pulse Ox O2 Delivery O2 Flow Rate FiO2 04/23/19 12:00 97.7 96 18 143/72 (95) 98 04/23/19 12:00 96 04/23/19 09:00 Room Air 04/23/19 08:29 105 151/86 04/23/19 08:00 98.8 82 20 151/86 (107) 99 04/23/19 08:00 82 04/23/19 04:00 87 04/23/19 04:00 98.7 95 18 150/90 (110) 98 04/23/19 00:00 96 04/23/19 00:00 99.0 99 18 144/75 (98) 98 04/22/19 21:00 Room Air 04/22/19 20:00 103 04/22/19 20:00 99.1 99 20 126/64 (84) 97 04/22/19 17:41 110 158/87 04/22/19 16:00 98.6 97 20 158/87 (110) 100 04/22/19 16:00 110 I&O Intake and Output 04/22/19 04/23/19 19:00 07:00 Intake Total 360 ml 882.9 ml Output Total 2400 ml 1200 ml Balance -2040 ml -317.1 ml Intake Oral 360 ml IV Total 882.9 ml Output Urine Total 2400 ml 1200 ml Dressing: dry Wound: clean Drains: none Cardiovascular: RSR Respiratory: clear Abdomen: soft, non-tender, present bowel sounds Extremities: no cyanosis Laboratory Tests Test 04/23/19 06:36 White Blood Count 8.8 K/UL (4.8-10.8) Red Blood Count 3.52 M/UL (4.20-5.40) L Hemoglobin 8.9 G/DL (12.0-16.0) L Hematocrit 28.8 % (37.0-47.0) L Mean Corpuscular Volume 82 FL (80-99) Mean Corpuscular Hemoglobin 25.2 PG (27.0-31.0) L Mean Corpuscular Hemoglobin Concent 30.8 G/DL (32.0-36.0) L Red Cell Distribution Width 19.3 % (11.6-14.8) H Platelet Count 432 K/UL (150-450) Mean Platelet Volume 4.9 FL (6.5-10.1) L Neutrophils (%) (Auto) 59.6 % (45.0-75.0) Lymphocytes (%) (Auto) 30.2 % (20.0-45.0) Monocytes (%) (Auto) 5.1 % (1.0-10.0) Eosinophils (%) (Auto) 4.5 % (0.0-3.0) H Basophils (%) (Auto) 0.6 % (0.0-2.0) Sodium Level 140 MMOL/L (136-145) Potassium Level 3.7 MMOL/L (3.5-5.1) Chloride Level 108 MMOL/L (98-107) H Carbon Dioxide Level 24 MMOL/L (21-32) Anion Gap 8 mmol/L (5-15) Blood Urea Nitrogen 6 mg/dL (7-18) L Creatinine 0.6 MG/DL (0.55-1.30) Estimat Glomerular Filtration Rate > 60 mL/min (>60) Glucose Level 74 MG/DL (74-106) Calcium Level 8.8 MG/DL (8.5-10.1) Total Bilirubin 0.2 MG/DL (0.2-1.0) Aspartate Amino Transf (AST/SGOT) 12 U/L (15-37) L Alanine Aminotransferase (ALT/SGPT) 13 U/L (12-78) Alkaline Phosphatase 113 U/L (46-116) Total Protein 7.7 G/DL (6.4-8.2) Albumin 2.2 G/DL (3.4-5.0) L Globulin 5.5 g/dL Albumin/Globulin Ratio 0.4 (1.0-2.7) L Plan Problems: (1) Sacral decubitus ulcer, stage IV Assessment & Plan: PT presented on admission in grossly unkempt state with multiple pressure injuries. Full thickness stage 4 pressure injury sacrococcygeal area(L)4cm x (W)2.5cm x (D)0.7cm. Biofilm at base of wound and bone is palpable. Additionally, surrounding areas of wound encompassing R and L buttocks and extending into both ischial regions are erythematous -moist with scattered areas of slough and scattered pink epithelial (L)14.5cm x (W)11cm. Full thickness pressure injury R buttocks with 80% slough (L)1.5cm x (W)1cm. Full thickness pressure injury R ischium . Base of wound has 100% slough. (L) (L )2.4cm x (W)3.5cm. Borders and surrounding areas are moist and viable. Tender when minimally palpated. Full thickness pressure injury lateral L tibia .base of wound with mixed eschar and slough . No odor noted .Small amt seropurulent exudate. periwound has darker skin tone with dry, scaly skin.(L)5cm x (W)2cm. Full thickness ulcer lateral L foot . Base of wound 50% viable ,50% slough.Borders are macerated. Periwound dry and flaky without erythema or fluctuance. Tx.Plan. Cleanse sacrococcygeal wound with saline. Apply Therahoney . Apply Moisture Barrier Paste to surrounding buttocks Cover with Optifoam drsg Daily and prn. Cleanse Wound R buttocks with saline. Apply Therahoney. Apply Moisture Barrier periwound. Cover with Optifoam Daily and prn. Cleanse R ischial wound with saline.Apply Therahoney. Apply Moisture Barrier periwound .Cover with Optifoam drsg Daily and prn. Apply Cavilon Skin Barrier to both heels. Cover each heel with Optifoam drsg. Change every 7 days and prn. APM/DESTIN Mattress. Reposition at least every 2hours or as tolerated. Off-load heels with pillow. cont with above care orders upon discharge (2) Abdominal pain Assessment & Plan: leukocytosis abd discomfort KUB with Findings: Severe fecal retention is noted. There is no evidence of abnormal gaseous distention of small bowel loops to suggest small bowel obstruction. Bones are demineralized. Degenerative and chronic changes are noted in the spine and bilateral hips. No acute osseous abnormality. Impression: Findings suggestive of marked rectal fecal retention/impaction. Enema bowel care diet will follow with recs thank you Niels Carroll Apr 23, 2019 14:20
--- NOTE | 2019-04-23 14:59 | NUR ---
SENIOR ACCOUNTS PAYABLE CLERK NOTES SPOKE WITH KATE FROM [facility], UNABLE TO ACCEPT THIS PT @ THIS TIME. SPOKE WITH CHOLO FROM [facility] CURRENTLY IN REVIEW. WILL FOLLOW UP. WAITING FOR CALL BACK FROM [facility].
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
[2019-04-23 16:00] VITALS: BP 115/62
--- NOTE | 2019-04-23 16:06 | NUR ---
*-* DISCHARGE PLANNING *-* PATIENT HAS BEEN REFERRED TO: [facility] P: [phone] F: [phone] & [facility] P: [phone] F: [phone] Addendum: 04/24/19 at 1030 by MICHAEL GODOY CM *-* [facility] STATED THEY ARE UNABLE TO ACCEPT PATIENT DUE TO SEVERE WOUNDS AND THEY ARE UP FOR SURVEY THEY ARE BEING PARTICULAR ABOUT THEIR ADMITS S/W HU *-*
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
--- NOTE | 2019-04-23 19:18 | NUR ---
HAND-OFF: Report given to YOLANDA Garcia. Patient is in stable condition.
--- NOTE | 2019-04-23 19:30 | NUR ---
NURSE NOTES: Received patient from Kathryn GUERRERO. Patient in bed, on room air, no s/s of respiratory distress. IV on left foot, patent, with NS infusing at 75ml/hr. Call light within reach. Bed in low position, locked, bed alarm on.
[2019-04-23 20:00] VITALS: BP 129/65
[2019-04-24] VITALS: BP 133/72
[2019-04-24 04:00] VITALS: BP 151/81
[2019-04-24] MEDS: Zosyn 3.375gm q8h **Extended infusion IVPB SCH ×2 (05:03)
[2019-04-24 08:00] VITALS: BP 127/75
--- NOTE | 2019-04-24 08:02 | Urology Progress Note ---
Assessment/Plan Assessment/Plan: 1. Urinary retention with chronic suprapubic tube. 2. Neurogenic bladder. 3. Pyuria and probable colonized urine with possible UTI. 4. Hematuria. 5. Proteinuria. keep SP tube last replaced 04/18 hand irrigated and do PRN position is satisfactory abx added consider renal imaging study cysto later Subjective Allergies: Coded Allergies: CEPHALEXIN (Verified Allergy, Unknown, 11/19/09) HYDROMORPHONE (Unverified Allergy, Unknown, 12/27/18) INTERFERON BETA-1B (Verified Allergy, Unknown, 11/01/12) COULDN'T WALK AFTER TAKING MEDICATION NITROFURANTOIN (Verified Allergy, Unknown, 11/19/09) SULFA (SULFONAMIDE ANTIBIOTICS) (Unverified Allergy, Unknown, 12/27/18) SULFAMETHOXAZOLE (Verified Allergy, Unknown, 11/19/09) TRIMETHOPRIM (Verified Allergy, Unknown, 11/19/09) Uncoded Allergies: COTRIM (Allergy, Unknown, 12/27/18) Subjective all noted, SP tube draining OK Objective Last 24 Hour Vital Signs Date Time Temp Pulse Resp B/P (MAP) Pulse Ox O2 Delivery O2 Flow Rate FiO2 04/24/19 04:00 82 04/24/19 04:00 97.9 89 20 151/81 (104) 98 04/24/19 03:47 82 04/24/19 00:00 98.0 88 20 133/72 (92) 99 04/23/19 23:47 99 04/23/19 21:06 86 04/23/19 21:00 Room Air 04/23/19 20:00 97.9 90 20 129/65 (86) 98 04/23/19 18:05 87 115/62 04/23/19 16:00 87 04/23/19 16:00 98.4 100 20 115/62 (79) 98 04/23/19 12:00 97.7 96 18 143/72 (95) 98 04/23/19 12:00 96 04/23/19 09:00 Room Air 04/23/19 08:29 105 151/86 Intake and Output 04/23/19 04/24/19 18:59 06:59 Intake Total 337.9 ml Output Total 1400 ml Balance -1062.1 ml Intake Oral 240 ml IV Total 97.9 ml Output Urine Total 1400 ml # Bowel Movements 1 1 Microbiology Date/Time Source Procedure Growth Status 04/17/19 14:37 Urine,Clean Catch Urine Culture - Final Escherichia Coli Complete Current Medications Medications (Trade) Dose Ordered Sig/Fransisca Route PRN Reason Start Time Stop Time Status Last Admin Dose Admin Amlodipine Besylate (Norvasc) 5 mg BID ORAL 04/18/19 18:00 05/17/19 17:59 04/23/19 18:05 Baclofen (Lioresal) 10 mg THREE TIMES A DAY ORAL 04/18/19 18:00 05/17/19 17:59 04/23/19 18:05 Bisacodyl (Dulcolax) 5 mg DAILY ORAL 04/19/19 09:00 05/18/19 08:59 04/23/19 08:28 Heparin Sodium (Porcine) (Heparin 5000 units/ml) 5,000 units EVERY 12 HOURS SUBQ 04/19/19 21:00 05/19/19 20:59 04/23/19 21:59 Multivitamins (Multivitamins) 1 tab DAILY ORAL 04/19/19 09:00 05/18/19 08:59 04/23/19 08:27 Oxycodone/ Acetaminophen (Percocet 10/325) 1 tab Q4H PRN ORAL For Pain 04/18/19 16:18 04/25/19 16:17 04/22/19 21:01 Piperacillin Sod/ Tazobactam Sod 3.375 gm/Sodium Chloride 110 ml @ 27.5 mls/hr EVERY 8 HOURS IVPB 04/19/19 12:30 04/24/19 12:29 04/24/19 05:03 Sodium Chloride 1,000 ml @ 75 mls/hr [id number] IV 04/19/19 18:00 05/19/19 17:59 04/24/19 04:56 Vitamin D (Vitamin D) 1,000 intlu DAILY ORAL 04/19/19 09:00 05/18/19 08:59 04/23/19 08:28 Height (Feet): 5 Height (Inches): 3.00 Weight (Pounds): 141 Objective exam stable SP tube in place, urine yellow with some debris Jah Syed MD Apr 24, 2019 08:02
--- NOTE | 2019-04-24 08:07 | NUR ---
NURSE NOTES: Received patient from Aleksandr Garcia. Patient Awake in bed. Denies pain or discomfort. All safety precautions in place. bed locked in lowest position side rails X 2 up. call carson within patients reach. Will follow.
[2019-04-24] MEDS: Vitamin D 1000 IU Tab ORAL SCH (08:34)
[2019-04-24] MEDS: Bisacodyl EC 5mg tab ORAL SCH (08:34)
[2019-04-24] MEDS: Heparin 5000 units/ml inj SUBQ SCH ×2 (08:35→21:08)
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
--- NOTE | 2019-04-24 10:49 | NUR ---
NURSE NOTES: Dr. Dunn made aware that patient's Narco meds expiring tomorrow. ordered renewal. order carried out.
--- NOTE | 2019-04-24 11:00 | NUR ---
NURSE NOTES: Spoke to icebox worker Mikaela re: patients case. instructed not to give information over the phone questionable power of corporate officer "Will". Noted, litharge supervisor made aware.
[2019-04-24 12:00] VITALS: BP 122/68
--- NOTE | 2019-04-24 13:08 | NUR ---
RD ASSESSMENT & RECOMMENDATIONS SEE CARE ACTIVITY FOR COMPLETE ASSESSMENT DAILY ESTIMATED NEEDS: Needs based on Wounds, 53.5kg abw 25-30 kcals/kg 0450-8374 total kcals 1.25-1.5 g protein/kg 67-80 g total protein 25-30 mL/kg 7715-9974 total fluid mLs NUTRITION DIAGNOSIS: Increased kcal/prot intake needs R/T wound healing as evidenced by pt admitted w/ full thickness pressure injury at R buttocks, R ischium, lateral L tibia, and lateral L foot. CURRENT DIET:REGULAR, mech soft chopped PO DIET RECOMMENDATIONS: Maintain regular/ texture as tolerated or per COORDINATOR HOTELS ADDITIONAL RECOMMENDATIONS: * Calibrated bedscale wt for accurate CBW * Consider COORDINATOR HOTELS eval for appropriate texture: pt asking for regular texture * Wound healing: continue MVI : add Vit C 500mg BID, ZnSO4 220mg QD x 10 days : Anival 1pkt BID added to tray
--- NOTE | 2019-04-24 13:52 | Surgery Progress Note ---
Surgery Progress Note Subjective Additional Comments no acute events comfortable stable. no complaints pending placement Objective Last 24 Hour Vital Signs Date Time Temp Pulse Resp B/P (MAP) Pulse Ox O2 Delivery O2 Flow Rate FiO2 04/24/19 12:00 98.6 73 18 122/68 (86) 100 04/24/19 12:00 75 04/24/19 09:00 Room Air 04/24/19 08:34 86 127/75 04/24/19 08:00 83 04/24/19 08:00 96.8 86 20 127/75 (92) 97 04/24/19 04:00 82 04/24/19 04:00 97.9 89 20 151/81 (104) 98 04/24/19 03:47 82 04/24/19 00:00 98.0 88 20 133/72 (92) 99 04/23/19 23:47 99 04/23/19 21:06 86 04/23/19 21:00 Room Air 04/23/19 20:00 97.9 90 20 129/65 (86) 98 04/23/19 18:05 87 115/62 04/23/19 16:00 87 04/23/19 16:00 98.4 100 20 115/62 (79) 98 I&O Intake and Output 04/23/19 04/24/19 19:00 07:00 Intake Total 240 ml 120 ml Output Total 1400 ml Balance -1160 ml 120 ml Intake Oral 240 ml 120 ml Output Urine Total 1400 ml # Bowel Movements 1 1 Cardiovascular: RSR Respiratory: clear Abdomen: soft, non-tender, present bowel sounds Extremities: no cyanosis Plan Problems: (1) Sacral decubitus ulcer, stage IV Assessment & Plan: PT presented on admission in grossly unkempt state with multiple pressure injuries. Full thickness stage 4 pressure injury sacrococcygeal area(L)4cm x (W)2.5cm x (D)0.7cm. Biofilm at base of wound and bone is palpable. Additionally, surrounding areas of wound encompassing R and L buttocks and extending into both ischial regions are erythematous -moist with scattered areas of slough and scattered pink epithelial (L)14.5cm x (W)11cm. Full thickness pressure injury R buttocks with 80% slough (L)1.5cm x (W)1cm. Full thickness pressure injury R ischium . Base of wound has 100% slough. (L) (L )2.4cm x (W)3.5cm. Borders and surrounding areas are moist and viable. Tender when minimally palpated. Full thickness pressure injury lateral L tibia .base of wound with mixed eschar and slough . No odor noted .Small amt seropurulent exudate. periwound has darker skin tone with dry, scaly skin.(L)5cm x (W)2cm. Full thickness ulcer lateral L foot . Base of wound 50% viable ,50% slough.Borders are macerated. Periwound dry and flaky without erythema or fluctuance. Tx.Plan. Cleanse sacrococcygeal wound with saline. Apply Therahoney . Apply Moisture Barrier Paste to surrounding buttocks Cover with Optifoam drsg Daily and prn. Cleanse Wound R buttocks with saline. Apply Therahoney. Apply Moisture Barrier periwound. Cover with Optifoam Daily and prn. Cleanse R ischial wound with saline.Apply Therahoney. Apply Moisture Barrier periwound .Cover with Optifoam drsg Daily and prn. Apply Cavilon Skin Barrier to both heels. Cover each heel with Optifoam drsg. Change every 7 days and prn. APM/DESTIN Mattress. Reposition at least every 2hours or as tolerated. Off-load heels with pillow. cont with above care orders upon discharge (2) Abdominal pain Assessment & Plan: leukocytosis abd discomfort KUB with Findings: Severe fecal retention is noted. There is no evidence of abnormal gaseous distention of small bowel loops to suggest small bowel obstruction. Bones are demineralized. Degenerative and chronic changes are noted in the spine and bilateral hips. No acute osseous abnormality. Impression: Findings suggestive of marked rectal fecal retention/impaction. Enema bowel care diet will follow with recs thank you Niels Carroll Apr 24, 2019 13:51
--- NOTE | 2019-04-24 15:55 | NUR ---
NURSE NOTES Wound care done. Patient pre medicated with pain medication prior to wound care. Patient has order for P200 mattress but she refused. Turned and position patient q2 hours or as needed. will continue to follow.
--- NOTE | 2019-04-24 15:58 | NUR ---
*-* DISCHARGE PLANNING *-* PATIENT HAS BEEB REFERRED TO: [facility] P:[phone] F: [phone] Addendum: 04/24/19 at 1637 by MICHAEL GODOY CM SPOKE WITH [facility] THEY ARE UNABLE TO FOLLOW PATIENT THEY DO NOT HAVE A NURSE AVAILABLE.
[2019-04-24 16:00] VITALS: BP 119/72
--- NOTE | 2019-04-24 16:39 | NUR ---
*-* DISCHARGE PLANNING *-* PATIENT HAS BEEN REFERRED TO: [facility] P: [phone] F: [phone]
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
--- NOTE | 2019-04-24 19:26 | NUR ---
HAND-OFF: Report given to Aleksandr Garcia. Plan of care endorsed.
--- NOTE | 2019-04-24 19:30 | NUR ---
NURSE NOTES: Received patient from Valencia GUERRERO. Patient in bed, on room air, no signs of respiratory distress. Alert and oriented x 4. Refusing air mattress. IV on left foot patent with NS infusing at 75ml/hr. Suprapubic catheter intact, patent, with securing device.
[2019-04-24 20:00] VITALS: BP 132/71
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
--- NOTE | 2019-04-24 23:04 | Diagnostic Imaging Report ---
APPROVED REPORT CPT Code: 95248 Present Symptoms Comments: SCREENING BILATERAL: Imaging reveals a patent deep venous system bilaterally. There is no evidence of thrombus within the common femoral, superficial femoral, popliteal or tibial segments. The greater saphenous veins are within normal limits. Doppler indicates normal spontaneous flow within these segments.
[2019-04-25] VITALS: BP 115/63
[2019-04-25 04:00] VITALS: BP 152/87
--- NOTE | 2019-04-25 07:55 | NUR ---
NURSE NOTES: Received report from YOLANDA Garcia. Patient in bed resting, no active s/s cardiac, respiratory distress noticed at this time. Patient on room air, AOx4. IV on left foot 24G, asymptomatic, patent, intact, IV fluid running as prescribed rate. Patient refusing P200 mattress at this time. Endorsed no visitor allowed except Guerita, . Bed in lowest position, side rails upx2, call light within reach. Will continue to monitor.
[2019-04-25 08:00] VITALS: BP 124/61
[2019-04-25] MEDS: Vitamin D 1000 IU Tab ORAL SCH (08:33)
[2019-04-25] MEDS: Bisacodyl EC 5mg tab ORAL SCH (08:33)
[2019-04-25] MEDS: Heparin 5000 units/ml inj SUBQ SCH ×2 (08:35→20:12)
[2019-04-25 12:00] VITALS: BP 129/68
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
--- NOTE | 2019-04-25 15:30 | NUR ---
NURSE NOTES: Patient educated importance of turning on P200 mattress and turn at least every 2hour. Per patient, she does not like noise that P200 makes, okay to turn, okay to turn on P200 mattress for 1 hour at this time.
[2019-04-25 16:00] VITALS: BP 128/62
--- NOTE | 2019-04-25 19:12 | NUR ---
HAND-OFF: Report given to YOLANDA Garcia.
--- NOTE | 2019-04-25 19:20 | NUR ---
NURSE NOTES: Received patient from Heath RN. Patient awake in bed, alert and oriented x4, on room air, no s/s of respiratory distress. 24 gauge PIV on left foot intact, patent, flushed, NS at 75ml/hr. Suprapubic catheter intact, patent and draining yellow output. Air mattress on. Bilateral lower extremities elevated, heels off loading, dressings intact. Bed in low position, locked, bed alarm on, call light with reach. Patient c/o itching, notified Dr. Shabazz covering for Dr. Dunn. Received orders for benadryl 25mg po q8hrs prn.
[2019-04-25 20:02] VITALS: BP 136/64
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
[2019-04-26] VITALS: BP 135/67
[2019-04-26 04:06] VITALS: BP 136/75
--- NOTE | 2019-04-26 07:44 | NUR ---
NURSE NOTES: Received report from YOLANDA Garcia. Patient in bed resting, no active s/s cardiac, respiratory distress noticed at this time. Patient AOx4, on room air, denies pain at this time. Patient SR with HR 89. Patient on p200 mattress at this time. IV on left Foot 24G, asymptomatic, patent, intact, IV fluid running at prescribed rate. Suprapubic catheter draining well to gravity. Bed in lowest position, side rails upx2, call light within reach. Will continue to monitor.
[2019-04-26 08:00] VITALS: BP 133/66
[2019-04-26] MEDS: Bisacodyl EC 5mg tab ORAL SCH (08:45)
[2019-04-26] MEDS: Vitamin D 1000 IU Tab ORAL SCH (08:45)
[2019-04-26] MEDS: Heparin 5000 units/ml inj SUBQ SCH ×2 (08:46→21:00)
[2019-04-26 08:55] LABS: BASOPHILS % (AUTO) 0.5 % (0.0-2.0); EOSINOPHILS % (AUTO) 3.9 % (0.0-3.0); HEMATOCRIT 31.2 % (37.0-47.0); HEMOGLOBIN 9.5 G/DL (12.0-16.0); LYMPHOCYTES % (AUTO) 32.1 % (20.0-45.0); MEAN CORPUSCULAR VOLUME 81 FL (80-99); MONOCYTES % (AUTO) 2.7 % (1.0-10.0); NEUTROPHILS % (AUTO) 60.9 % (45.0-75.0); PLATELET COUNT 562 K/UL (150-450); RED BLOOD COUNT 3.84 M/UL (4.20-5.40); RED CELL DISTRIBUTION WIDTH 19.5 % (11.6-14.8); WHITE BLOOD COUNT 9.8 K/UL (4.8-10.8)
[2019-04-26 09:14] LABS: ANION GAP 9 mmol/L (5-15); BLOOD UREA NITROGEN 11 mg/dL (7-18); CALCIUM 9.2 MG/DL (8.5-10.1); CARBON DIOXIDE 25 MMOL/L (21-32); CHLORIDE 105 MMOL/L (98-107); CREATININE 0.6 MG/DL (0.55-1.30); POTASSIUM 3.6 MMOL/L (3.5-5.1); SODIUM 139 MMOL/L (136-145)
--- NOTE | 2019-04-26 09:52 | Urology Progress Note ---
Assessment/Plan Assessment/Plan: 1. Urinary retention with chronic suprapubic tube. 2. Neurogenic bladder. 3. Pyuria and probable colonized urine with possible UTI. 4. Hematuria. 5. Proteinuria. keep SP tube last replaced 04/18 hand irrigated and do PRN position is satisfactory s/p abx consider renal imaging study cysto later Subjective Allergies: Coded Allergies: CEPHALEXIN (Verified Allergy, Unknown, 11/19/09) HYDROMORPHONE (Unverified Allergy, Unknown, 12/27/18) INTERFERON BETA-1B (Verified Allergy, Unknown, 11/01/12) COULDN'T WALK AFTER TAKING MEDICATION NITROFURANTOIN (Verified Allergy, Unknown, 11/19/09) SULFA (SULFONAMIDE ANTIBIOTICS) (Unverified Allergy, Unknown, 12/27/18) SULFAMETHOXAZOLE (Verified Allergy, Unknown, 11/19/09) TRIMETHOPRIM (Verified Allergy, Unknown, 11/19/09) Uncoded Allergies: COTRIM (Allergy, Unknown, 12/27/18) Subjective all noted, SP tube draining OK Objective Last 24 Hour Vital Signs Date Time Temp Pulse Resp B/P (MAP) Pulse Ox O2 Delivery O2 Flow Rate FiO2 04/26/19 09:00 Room Air 04/26/19 08:45 87 133/66 04/26/19 08:00 98.7 87 18 133/66 (88) 99 04/26/19 08:00 96 04/26/19 04:06 99.1 89 18 136/75 (95) 98 04/26/19 04:00 80 04/26/19 00:00 86 04/26/19 00:00 98.2 88 18 135/67 (89) 99 04/25/19 21:00 Room Air 04/25/19 20:02 98.4 98 18 136/64 (88) 98 04/25/19 20:00 85 04/25/19 18:02 90 128/62 04/25/19 16:00 90 04/25/19 16:00 99.3 84 18 128/62 (84) 96 04/25/19 12:00 98.3 85 18 129/68 (88) 99 04/25/19 12:00 77 Intake and Output 04/25/19 04/26/19 19:00 07:00 Intake Total 280 ml Output Total 600 ml 2000 ml Balance -320 ml -2000 ml Intake Oral 280 ml Output Urine Total 600 ml 2000 ml # Bowel Movements 1 Microbiology Date/Time Source Procedure Growth Status 04/17/19 14:37 Urine,Clean Catch Urine Culture - Final Escherichia Coli Complete Current Medications Medications (Trade) Dose Ordered Sig/Fransisca Route PRN Reason Start Time Stop Time Status Last Admin Dose Admin Amlodipine Besylate (Norvasc) 5 mg BID ORAL 04/18/19 18:00 05/17/19 17:59 04/26/19 08:45 Baclofen (Lioresal) 10 mg THREE TIMES A DAY ORAL 04/18/19 18:00 05/17/19 17:59 04/26/19 08:45 Bisacodyl (Dulcolax) 5 mg DAILY ORAL 04/19/19 09:00 05/18/19 08:59 04/26/19 08:45 Diphenhydramine HCl (Benadryl) 25 mg Q8H PRN ORAL Itching 04/25/19 19:45 05/25/19 19:44 04/25/19 20:08 Heparin Sodium (Porcine) (Heparin 5000 units/ml) 5,000 units EVERY 12 HOURS SUBQ 04/19/19 21:00 05/19/19 20:59 04/26/19 08:46 Multivitamins (Multivitamins) 1 tab DAILY ORAL 04/19/19 09:00 05/18/19 08:59 04/26/19 08:45 Oxycodone/ Acetaminophen (Percocet 10/325) 1 tab Q4H PRN ORAL For Pain 04/24/19 10:48 05/01/19 10:47 04/26/19 03:30 Sodium Chloride 1,000 ml @ 75 mls/hr [id number] IV 04/19/19 18:00 05/19/19 17:59 04/25/19 19:35 Vitamin D (Vitamin D) 1,000 intlu DAILY ORAL 04/19/19 09:00 05/18/19 08:59 04/26/19 08:45 Laboratory Tests 04/26/19 08:10: White Blood Count 9.8, Red Blood Count 3.84L, Hemoglobin 9.5L, Hematocrit 31.2L , Mean Corpuscular Volume 81, Mean Corpuscular Hemoglobin 24.8L, Mean Corpuscular Hemoglobin Concent 30.5L, Red Cell Distribution Width 19.5H, Platelet Count 562H, Mean Platelet Volume 4.7L, Neutrophils (%) (Auto) 60.9, Lymphocytes (%) (Auto) 32.1, Monocytes (%) (Auto) 2.7, Eosinophils (%) (Auto) 3.9H, Basophils (%) (Auto) 0.5, Sodium Level 139, Potassium Level 3.6, Chloride Level 105, Carbon Dioxide Level 25, Anion Gap 9, Blood Urea Nitrogen 11, Creatinine 0.6, Estimat Glomerular Filtration Rate > 60, Glucose Level 129H, Calcium Level 9.2 Height (Feet): 5 Height (Inches): 3.00 Weight (Pounds): 141 Objective exam stable SP tube in place, urine yellow with some debris Jah Syed MD Apr 26, 2019 09:52
[2019-04-26 12:00] VITALS: BP 128/88
--- NOTE | 2019-04-26 14:55 | NUR ---
TRANSFER TO FLOOR: Patient transferred to 4E , per Dr. Dunn. Report given to YOLANDA Camp. Belongings and medications given to YOLANDA Camp. Family and or S/O informed of transfer.
[2019-04-26 16:00] VITALS: BP 126/68
--- NOTE | 2019-04-26 16:43 | NUR ---
NURSE NOTES: Received pt from Tel , VS stable, pt awake, A/O x 3, forgetful, calm and cooperative. Pain controlled with Percocet 1 tab. stage IV sacral/buttocks, left leg , dressing changed , pictures taken. belongings with pt at bedside. pts on P200 bed, turned and repositioned q2hrs. call light within reach. bed in low position, bed alarm on . fall precaution maintained. will continue to monitor.
--- NOTE | 2019-04-26 17:22 | NUR ---
Dressing changed per order. pictures in the chart. turned and repositioned q2rhs . will continue to monitor.
--- NOTE | 2019-04-26 19:42 | NUR ---
NURSE NOTES: Received patient resting in bed. AAO x 3. Stage 4 wound on sacral. stage 2 on L lateral foot. Dressing changed from previous shift and both covered with optifoam. Both heels covered with optifoam for prevention. IV L foot 24 running NS 75cc/hr. Pt has suprapubic cath and draining yellow urine. SCD on. Bed lowest position, locked, HOB elevated, alarm on, call light within reach. Will continue to monitor.
[2019-04-26 20:00] VITALS: BP 130/58
--- NOTE | 2019-04-26 20:36 | Pulmonology Progress Note ---
Assessment/Plan Assessment/Plan Urinary tract infection E coli hypertension MS, severe multiple wounds off abx wound care, clean and dry dc planning per cm pt wants to go home Subjective Constitutional: Reports: no symptoms HEENT: Repors: no symptoms Respiratory: Reports: no symptoms Gastrointestinal/Abdominal: Reports: no symptoms Allergies: Coded Allergies: CEPHALEXIN (Verified Allergy, Unknown, 11/19/09) HYDROMORPHONE (Unverified Allergy, Unknown, 12/27/18) INTERFERON BETA-1B (Verified Allergy, Unknown, 11/01/12) COULDN'T WALK AFTER TAKING MEDICATION NITROFURANTOIN (Verified Allergy, Unknown, 11/19/09) SULFA (SULFONAMIDE ANTIBIOTICS) (Unverified Allergy, Unknown, 12/27/18) SULFAMETHOXAZOLE (Verified Allergy, Unknown, 11/19/09) TRIMETHOPRIM (Verified Allergy, Unknown, 11/19/09) Uncoded Allergies: COTRIM (Allergy, Unknown, 12/27/18) Subjective better no cp nv or bleeding not getting oob on ra tolerating po Objective Last 24 Hour Vital Signs Date Time Temp Pulse Resp B/P (MAP) Pulse Ox O2 Delivery O2 Flow Rate FiO2 04/26/19 17:02 98 126/68 04/26/19 16:00 98.5 98 20 126/68 (87) 98 04/26/19 15:41 98.5 04/26/19 12:00 98.5 96 20 128/88 (101) 99 04/26/19 12:00 96 04/26/19 09:00 Room Air 04/26/19 08:45 87 133/66 04/26/19 08:00 98.7 87 18 133/66 (88) 99 04/26/19 08:00 96 04/26/19 04:06 99.1 89 18 136/75 (95) 98 04/26/19 04:00 80 04/26/19 00:00 86 04/26/19 00:00 98.2 88 18 135/67 (89) 99 04/25/19 21:00 Room Air Intake and Output 04/25/19 04/26/19 19:00 07:00 Intake Total 280 ml Output Total 600 ml 2000 ml Balance -320 ml -2000 ml Intake Oral 280 ml Output Urine Total 600 ml 2000 ml # Bowel Movements 1 General Appearance: WD/WN Respiratory/Chest: normal breath sounds Cardiovascular: normal rate, regular rhythm Abdomen: soft, non tender, non distended Extremities: other - copntracted Skin: lesions Neurologic/Psychiatric: alert, oriented x 3 Laboratory Tests 04/26/19 08:10: White Blood Count 9.8, Red Blood Count 3.84L, Hemoglobin 9.5L, Hematocrit 31.2L , Mean Corpuscular Volume 81, Mean Corpuscular Hemoglobin 24.8L, Mean Corpuscular Hemoglobin Concent 30.5L, Red Cell Distribution Width 19.5H, Platelet Count 562H, Mean Platelet Volume 4.7L, Neutrophils (%) (Auto) 60.9, Lymphocytes (%) (Auto) 32.1, Monocytes (%) (Auto) 2.7, Eosinophils (%) (Auto) 3.9H, Basophils (%) (Auto) 0.5, Sodium Level 139, Potassium Level 3.6, Chloride Level 105, Carbon Dioxide Level 25, Anion Gap 9, Blood Urea Nitrogen 11, Creatinine 0.6, Estimat Glomerular Filtration Rate > 60, Glucose Level 129H, Calcium Level 9.2 Current Medications Medications (Trade) Dose Ordered Sig/Fransisca Route PRN Reason Start Time Stop Time Status Last Admin Dose Admin Amlodipine Besylate (Norvasc) 5 mg BID ORAL 04/26/19 18:00 05/17/19 17:59 04/26/19 17:02 Baclofen (Lioresal) 10 mg THREE TIMES A DAY ORAL 04/26/19 18:00 05/17/19 17:59 04/26/19 17:02 Bisacodyl (Dulcolax) 5 mg DAILY ORAL 04/27/19 09:00 05/18/19 08:59 Diphenhydramine HCl (Benadryl) 25 mg Q8H PRN ORAL Itching 04/26/19 15:00 05/25/19 14:59 Heparin Sodium (Porcine) (Heparin 5000 units/ml) 5,000 units EVERY 12 HOURS SUBQ 04/26/19 21:00 05/19/19 20:59 Multivitamins (Multivitamins) 1 tab DAILY ORAL 04/27/19 09:00 05/18/19 08:59 Oxycodone/ Acetaminophen (Percocet 10/325) 1 tab Q4H PRN ORAL For Pain 04/26/19 15:00 05/01/19 14:59 04/26/19 15:11 Sodium Chloride 1,000 ml @ 75 mls/hr [id number] IV 04/26/19 15:00 05/19/19 17:59 04/26/19 15:12 Vitamin D (Vitamin D) 1,000 intlu DAILY ORAL 04/27/19 09:00 05/18/19 08:59 Judie Llamas DO Apr 26, 2019 20:36
[2019-04-27] VITALS: BP 122/55
[2019-04-27 04:00] VITALS: BP 136/64
--- NOTE | 2019-04-27 04:00 | NUR ---
NURSE NOTES: Dressing on sacral changed as ordered. Turned patient and repositioned.
--- NOTE | 2019-04-27 07:36 | NUR ---
HAND-OFF: Report given to YOLANDA Rocha.
--- NOTE | 2019-04-27 07:55 | Urology Progress Note ---
Assessment/Plan Assessment/Plan: 1. Urinary retention with chronic suprapubic tube. 2. Neurogenic bladder. 3. Pyuria and probable colonized urine with possible UTI. 4. Hematuria. 5. Proteinuria. keep SP tube last replaced 04/18 hand irrigated and do PRN position is satisfactory s/p abx consider renal imaging study cysto later Subjective Allergies: Coded Allergies: CEPHALEXIN (Verified Allergy, Unknown, 11/19/09) HYDROMORPHONE (Unverified Allergy, Unknown, 12/27/18) INTERFERON BETA-1B (Verified Allergy, Unknown, 11/01/12) COULDN'T WALK AFTER TAKING MEDICATION NITROFURANTOIN (Verified Allergy, Unknown, 11/19/09) SULFA (SULFONAMIDE ANTIBIOTICS) (Unverified Allergy, Unknown, 12/27/18) SULFAMETHOXAZOLE (Verified Allergy, Unknown, 11/19/09) TRIMETHOPRIM (Verified Allergy, Unknown, 11/19/09) Uncoded Allergies: COTRIM (Allergy, Unknown, 12/27/18) Subjective all noted, SP tube draining OK Objective Last 24 Hour Vital Signs Date Time Temp Pulse Resp B/P (MAP) Pulse Ox O2 Delivery O2 Flow Rate FiO2 04/27/19 04:00 98.0 92 20 136/64 (88) 99 04/27/19 00:00 99.0 96 19 122/55 (77) 98 04/26/19 21:00 Room Air 04/26/19 20:00 99.1 92 19 130/58 (82) 98 04/26/19 17:02 98 126/68 04/26/19 16:00 98.5 98 20 126/68 (87) 98 04/26/19 15:41 98.5 04/26/19 12:00 98.5 96 20 128/88 (101) 99 04/26/19 12:00 96 04/26/19 09:00 Room Air 04/26/19 08:45 87 133/66 04/26/19 08:00 98.7 87 18 133/66 (88) 99 04/26/19 08:00 96 Intake and Output 04/26/19 04/27/19 19:00 07:00 Intake Total 780 ml 1065 ml Output Total 1000 ml 1200 ml Balance -220 ml -135 ml Intake Oral 480 ml 240 ml IV Total 300 ml 825 ml Output Urine Total 1000 ml 1200 ml # Voids 2 # Bowel Movements 1 1 Microbiology Date/Time Source Procedure Growth Status 04/17/19 14:37 Urine,Clean Catch Urine Culture - Final Escherichia Coli Complete Current Medications Medications (Trade) Dose Ordered Sig/Fransisca Route PRN Reason Start Time Stop Time Status Last Admin Dose Admin Amlodipine Besylate (Norvasc) 5 mg BID ORAL 04/26/19 18:00 05/17/19 17:59 04/26/19 17:02 Baclofen (Lioresal) 10 mg THREE TIMES A DAY ORAL 04/26/19 18:00 05/17/19 17:59 04/26/19 17:02 Bisacodyl (Dulcolax) 5 mg DAILY ORAL 04/27/19 09:00 05/18/19 08:59 Diphenhydramine HCl (Benadryl) 25 mg Q8H PRN ORAL Itching 04/26/19 15:00 05/25/19 14:59 Heparin Sodium (Porcine) (Heparin 5000 units/ml) 5,000 units EVERY 12 HOURS SUBQ 04/26/19 21:00 05/19/19 20:59 04/26/19 21:00 Multivitamins (Multivitamins) 1 tab DAILY ORAL 04/27/19 09:00 05/18/19 08:59 Oxycodone/ Acetaminophen (Percocet 10/325) 1 tab Q4H PRN ORAL For Pain 04/26/19 15:00 05/01/19 14:59 04/27/19 01:26 Sodium Chloride 1,000 ml @ 75 mls/hr [id number] IV 04/26/19 15:00 05/19/19 17:59 04/27/19 04:00 Vitamin D (Vitamin D) 1,000 intlu DAILY ORAL 04/27/19 09:00 05/18/19 08:59 Laboratory Tests 04/26/19 08:10: White Blood Count 9.8, Red Blood Count 3.84L, Hemoglobin 9.5L, Hematocrit 31.2L , Mean Corpuscular Volume 81, Mean Corpuscular Hemoglobin 24.8L, Mean Corpuscular Hemoglobin Concent 30.5L, Red Cell Distribution Width 19.5H, Platelet Count 562H, Mean Platelet Volume 4.7L, Neutrophils (%) (Auto) 60.9, Lymphocytes (%) (Auto) 32.1, Monocytes (%) (Auto) 2.7, Eosinophils (%) (Auto) 3.9H, Basophils (%) (Auto) 0.5, Sodium Level 139, Potassium Level 3.6, Chloride Level 105, Carbon Dioxide Level 25, Anion Gap 9, Blood Urea Nitrogen 11, Creatinine 0.6, Estimat Glomerular Filtration Rate > 60, Glucose Level 129H, Calcium Level 9.2 Height (Feet): 5 Height (Inches): 3.00 Weight (Pounds): 141 Objective exam stable SP tube in place, urine yellow with some debris Jah Syed MD Apr 27, 2019 07:55
[2019-04-27 08:00] VITALS: BP 120/48
--- NOTE | 2019-04-27 08:07 | NUR ---
NURSE NOTES: Patient is alert and oriented. No reports of discomfort at the moment. Embossing Press Operator rails upx2, bed is locked and in lowest position. Will continue to monitor.
[2019-04-27] MEDS: Heparin 5000 units/ml inj SUBQ SCH ×2 (08:57→21:49)
[2019-04-27] MEDS: Bisacodyl EC 5mg tab ORAL SCH (09:01)
[2019-04-27] MEDS: Vitamin D 1000 IU Tab ORAL SCH (09:01)
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
[2019-04-27 12:00] VITALS: BP 134/60
--- NOTE | 2019-04-27 13:16 | Pulmonology Progress Note ---
Assessment/Plan Problems: (1) Multiple sclerosis (2) Acute UTI (urinary tract infection) (3) Sacral decubitus ulcer, stage IV (4) Weakness generalized (5) suprapubic cathether malfunction (6) Acute metabolic encephalopathy Assessment/Plan Off Abx Wound care Surgery recs F/U recs, [facility] care DVT Px: Hep SQ PT/OT Dispo planning --> need to d/w CM home with HH vs SNF Subjective Allergies: Coded Allergies: CEPHALEXIN (Verified Allergy, Unknown, 11/19/09) HYDROMORPHONE (Unverified Allergy, Unknown, 12/27/18) INTERFERON BETA-1B (Verified Allergy, Unknown, 11/01/12) COULDN'T WALK AFTER TAKING MEDICATION NITROFURANTOIN (Verified Allergy, Unknown, 11/19/09) SULFA (SULFONAMIDE ANTIBIOTICS) (Unverified Allergy, Unknown, 12/27/18) SULFAMETHOXAZOLE (Verified Allergy, Unknown, 11/19/09) TRIMETHOPRIM (Verified Allergy, Unknown, 11/19/09) Uncoded Allergies: COTRIM (Allergy, Unknown, 12/27/18) Subjective AFVSS on RA Wants to go home, unclear who will care for her No F/C, no CP, no SOB, no NVDC Objective Last 24 Hour Vital Signs Date Time Temp Pulse Resp B/P (MAP) Pulse Ox O2 Delivery O2 Flow Rate FiO2 04/27/19 12:00 97.6 85 18 134/60 (84) 97 04/27/19 09:02 83 120/48 04/27/19 08:15 Room Air 04/27/19 08:00 98.6 70 18 120/48 (72) 97 04/27/19 04:00 98.0 92 20 136/64 (88) 99 04/27/19 00:00 99.0 96 19 122/55 (77) 98 04/26/19 21:00 Room Air 04/26/19 20:00 99.1 92 19 130/58 (82) 98 04/26/19 17:02 98 126/68 04/26/19 16:00 98.5 98 20 126/68 (87) 98 04/26/19 15:41 98.5 Intake and Output 04/26/19 04/27/19 19:00 07:00 Intake Total 780 ml 1065 ml Output Total 1000 ml 1200 ml Balance -220 ml -135 ml Intake Oral 480 ml 240 ml IV Total 300 ml 825 ml Output Urine Total 1000 ml 1200 ml # Voids 2 # Bowel Movements 1 1 General Appearance: WD/WN, no acute distress HEENT: normocephalic, atraumatic, anicteric, mucous membranes moist Respiratory/Chest: chest wall non-tender, lungs clear, normal breath sounds, no respiratory distress, no accessory muscle use Cardiovascular: normal peripheral pulses, normal rate, regular rhythm Abdomen: normal bowel sounds, soft, non tender, no organomegaly, non distended , no mass, other - SPC Extremities: no cyanosis, no clubbing, no edema, other - LUE cont Current Medications Medications (Trade) Dose Ordered Sig/Fransisca Route PRN Reason Start Time Stop Time Status Last Admin Dose Admin Amlodipine Besylate (Norvasc) 5 mg BID ORAL 04/26/19 18:00 05/17/19 17:59 04/27/19 09:02 Baclofen (Lioresal) 10 mg THREE TIMES A DAY ORAL 04/26/19 18:00 05/17/19 17:59 04/27/19 12:28 Bisacodyl (Dulcolax) 5 mg DAILY ORAL 04/27/19 09:00 05/18/19 08:59 04/27/19 09:01 Diphenhydramine HCl (Benadryl) 25 mg Q8H PRN ORAL Itching 04/26/19 15:00 05/25/19 14:59 Heparin Sodium (Porcine) (Heparin 5000 units/ml) 5,000 units EVERY 12 HOURS SUBQ 04/26/19 21:00 05/19/19 20:59 04/27/19 08:57 Multivitamins (Multivitamins) 1 tab DAILY ORAL 04/27/19 09:00 05/18/19 08:59 04/27/19 09:01 Oxycodone/ Acetaminophen (Percocet 10/325) 1 tab Q4H PRN ORAL For Pain 04/26/19 15:00 05/01/19 14:59 04/27/19 01:26 Sodium Chloride 1,000 ml @ 75 mls/hr [id number] IV 04/26/19 15:00 05/19/19 17:59 04/27/19 04:00 Vitamin D (Vitamin D) 1,000 intlu DAILY ORAL 04/27/19 09:00 05/18/19 08:59 04/27/19 09:01 Bon Zarate MD Apr 27, 2019 13:16
[2019-04-27 14:30] LABS: INR 0.9 (0.9-1.1)
[2019-04-27 16:00] VITALS: BP 130/60
--- NOTE | 2019-04-27 19:21 | NUR ---
NURSE NOTE Patient received A/A OX4 . Patient denies any pain at this time . no s/s of distress noted eft foot g#24 NS AT 75 CC/ HR infusing well . sacral and left lateral lfoot wounds dressing change by previous shift . Patient turned and repositioned . call light within reach bed in low position livan ll times . Addendum: 04/28/19 at 316 by FORTUNATO GERONIMO LVN Patient on P200 Mattress bilateral legs elevated . Heels off loading .Patient turned and repositioned every 2 hrs . will continue to monitior Addendum: 04/28/19 at 333 by FORTUNATO GERONIMO LVN Patient suprspubic catheter draining to yellow urine . will continue to monitor
--- NOTE | 2019-04-27 19:29 | NUR ---
HAND-OFF: Report given to JULIENNE Lynch.
[2019-04-27 20:00] VITALS: BP 138/75
--- NOTE | 2019-04-27 21:00 | NUR ---
CASE MANAGEMENT: REVIEW SI: UTI HX SUPRAPUBIC CATHETER . MS w/SEVERE DEFORMITY T 97.0 HR 83 RR 20 BP 120/48 SAT 97% ROOM AIR IS: HEPARIN SUBQ Q12HR NORVASC PO BID BACLOFEN PO TID NS IVF @75ML/HR PERCOCET 10/325 PO Q4HR PRN PT EVAL MED/SURG STATUS DCP: PATIENT IS FROM HOME
[2019-04-28] VITALS: BP 140/66
[2019-04-28 04:00] VITALS: BP 129/74
--- NOTE | 2019-04-28 07:05 | NUR ---
HAND-OFF: Report given to Josefina Branch
--- NOTE | 2019-04-28 07:46 | Urology Progress Note ---
Assessment/Plan Assessment/Plan: 1. Urinary retention with chronic suprapubic tube. 2. Neurogenic bladder. 3. Pyuria and probable colonized urine with possible UTI. 4. Hematuria. 5. Proteinuria. keep SP tube last replaced 04/18 hand irrigated and do PRN position is satisfactory s/p abx consider renal imaging study cysto later Subjective Allergies: Coded Allergies: CEPHALEXIN (Verified Allergy, Unknown, 11/19/09) HYDROMORPHONE (Unverified Allergy, Unknown, 12/27/18) INTERFERON BETA-1B (Verified Allergy, Unknown, 11/01/12) COULDN'T WALK AFTER TAKING MEDICATION NITROFURANTOIN (Verified Allergy, Unknown, 11/19/09) SULFA (SULFONAMIDE ANTIBIOTICS) (Unverified Allergy, Unknown, 12/27/18) SULFAMETHOXAZOLE (Verified Allergy, Unknown, 11/19/09) TRIMETHOPRIM (Verified Allergy, Unknown, 11/19/09) Uncoded Allergies: COTRIM (Allergy, Unknown, 12/27/18) Subjective all noted, SP tube draining OK Objective Last 24 Hour Vital Signs Date Time Temp Pulse Resp B/P (MAP) Pulse Ox O2 Delivery O2 Flow Rate FiO2 04/28/19 04:00 99.0 99 18 129/74 (92) 97 99 04/28/19 00:00 98.5 98 18 140/66 (90) 97 98 04/27/19 20:36 Room Air 04/27/19 20:00 97.7 83 20 138/75 (96) 100 99 04/27/19 17:29 91 143/57 04/27/19 16:00 97.0 83 20 130/60 (83) 98 04/27/19 12:00 97.6 85 18 134/60 (84) 97 04/27/19 09:02 83 120/48 04/27/19 08:15 Room Air 04/27/19 08:00 98.6 70 18 120/48 (72) 97 Intake and Output 04/27/19 04/28/19 19:00 07:00 Intake Total 625 ml 945 ml Output Total 500 ml 200 ml Balance 125 ml 745 ml Intake Oral 550 ml 420 ml IV Total 75 ml 525 ml Output Urine Total 500 ml 200 ml Microbiology Date/Time Source Procedure Growth Status 04/17/19 14:37 Urine,Clean Catch Urine Culture - Final Escherichia Coli Complete Current Medications Medications (Trade) Dose Ordered Sig/Fransisca Route PRN Reason Start Time Stop Time Status Last Admin Dose Admin Amlodipine Besylate (Norvasc) 5 mg BID ORAL 04/26/19 18:00 05/17/19 17:59 04/27/19 17:29 Baclofen (Lioresal) 10 mg THREE TIMES A DAY ORAL 04/26/19 18:00 05/17/19 17:59 04/27/19 17:28 Bisacodyl (Dulcolax) 5 mg DAILY ORAL 04/27/19 09:00 05/18/19 08:59 04/27/19 09:01 Diphenhydramine HCl (Benadryl) 25 mg Q8H PRN ORAL Itching 04/26/19 15:00 05/25/19 14:59 Heparin Sodium (Porcine) (Heparin 5000 units/ml) 5,000 units EVERY 12 HOURS SUBQ 04/26/19 21:00 05/19/19 20:59 04/27/19 21:49 Multivitamins (Multivitamins) 1 tab DAILY ORAL 04/27/19 09:00 05/18/19 08:59 04/27/19 09:01 Oxycodone/ Acetaminophen (Percocet 10/325) 1 tab Q4H PRN ORAL For Pain 04/26/19 15:00 05/01/19 14:59 04/27/19 01:26 Sodium Chloride 1,000 ml @ 75 mls/hr [id number] IV 04/26/19 15:00 05/19/19 17:59 04/28/19 07:05 Vitamin D (Vitamin D) 1,000 intlu DAILY ORAL 04/27/19 09:00 05/18/19 08:59 04/27/19 09:01 Laboratory Tests 04/27/19 13:30: Prothrombin Time 9.9, Prothromb Time International Ratio 0.9 Height (Feet): 5 Height (Inches): 3.00 Weight (Pounds): 141 Objective exam stable SP tube in place, urine yellow with some debris Jah Syed MD Apr 28, 2019 07:46
[2019-04-28 08:00] VITALS: BP 146/74
--- NOTE | 2019-04-28 08:02 | NUR ---
NURSE NOTES: Patient is alert and oriented. Patient has no reports of discomfort at the moment. Side rails are upx2, bed is locked, in lowest position, and call light is within reach. Will continue to monitor.
--- NOTE | 2019-04-28 09:37 | NUR ---
P.T Note: P.T evaluation completed. Pt is alert O x 4, pleasant and cooperative. Pt presented multiple joint contractures resulting from MS affecting her mobility independence. Pt is baseline dependent in all areas of ADL/functional mobility and self care therefor not a candidate for skilled P.T. Recommend [facility] if adequate care is not available home. Thank you for this referral.
[2019-04-28] MEDS: Vitamin D 1000 IU Tab ORAL SCH (09:42)
[2019-04-28] MEDS: Bisacodyl EC 5mg tab ORAL SCH (09:42)
[2019-04-28] MEDS: Heparin 5000 units/ml inj SUBQ SCH ×2 (09:44→20:52)
--- NOTE | 2019-04-28 10:57 | NUR ---
Social Service Note SW left a message for Gretta Candelaria, Elder Abuse [phone] Parvin Haynes [phone] regarding impending dc planning and concerns for patient's safety. Will continue to follow up.
[2019-04-28 12:00] VITALS: BP 120/72
--- NOTE | 2019-04-28 12:04 | Surgery Progress Note ---
Surgery Progress Note Subjective Symptoms: tolerating diet, passing flatus Additional Comments no acute events comfortable stable no complaints Objective Last 24 Hour Vital Signs Date Time Temp Pulse Resp B/P (MAP) Pulse Ox O2 Delivery O2 Flow Rate FiO2 04/28/19 09:43 100 146/74 04/28/19 08:15 Room Air 04/28/19 08:00 98.2 103 22 146/74 (98) 97 04/28/19 04:00 99.0 99 18 129/74 (92) 97 99 04/28/19 00:00 98.5 98 18 140/66 (90) 97 98 04/27/19 20:36 Room Air 04/27/19 20:00 97.7 83 20 138/75 (96) 100 99 04/27/19 17:29 91 143/57 04/27/19 16:00 97.0 83 20 130/60 (83) 98 I&O Intake and Output 04/27/19 04/28/19 19:00 07:00 Intake Total 625 ml 945 ml Output Total 500 ml 200 ml Balance 125 ml 745 ml Intake Oral 550 ml 420 ml IV Total 75 ml 525 ml Output Urine Total 500 ml 200 ml Dressing: other Wound: other Cardiovascular: RSR Respiratory: clear Abdomen: soft, non-tender, absent bowel sounds, non-distended Extremities: no cyanosis Laboratory Tests Test 04/27/19 13:30 Prothrombin Time 9.9 SEC (9.30-11.50) Prothromb Time International Ratio 0.9 (0.9-1.1) Plan Problems: (1) Sacral decubitus ulcer, stage IV Assessment & Plan: PT presented on admission in grossly unkempt state with multiple pressure injuries. Full thickness stage 4 pressure injury sacrococcygeal area(L)4cm x (W)2.5cm x (D)0.7cm. Biofilm at base of wound and bone is palpable. Additionally, surrounding areas of wound encompassing R and L buttocks and extending into both ischial regions are erythematous -moist with scattered areas of slough and scattered pink epithelial (L)14.5cm x (W)11cm. Full thickness pressure injury R buttocks with 80% slough (L)1.5cm x (W)1cm. Full thickness pressure injury R ischium . Base of wound has 100% slough. (L) (L )2.4cm x (W)3.5cm. Borders and surrounding areas are moist and viable. Tender when minimally palpated. Full thickness pressure injury lateral L tibia .base of wound with mixed eschar and slough . No odor noted .Small amt seropurulent exudate. periwound has darker skin tone with dry, scaly skin.(L)5cm x (W)2cm. Full thickness ulcer lateral L foot . Base of wound 50% viable ,50% slough.Borders are macerated. Periwound dry and flaky without erythema or fluctuance. Tx.Plan. Cleanse sacrococcygeal wound with saline. Apply Therahoney . Apply Moisture Barrier Paste to surrounding buttocks Cover with Optifoam drsg Daily and prn. Cleanse Wound R buttocks with saline. Apply Therahoney. Apply Moisture Barrier periwound. Cover with Optifoam Daily and prn. Cleanse R ischial wound with saline.Apply Therahoney. Apply Moisture Barrier periwound .Cover with Optifoam drsg Daily and prn. Apply Cavilon Skin Barrier to both heels. Cover each heel with Optifoam drsg. Change every 7 days and prn. APM/DESTIN Mattress. Reposition at least every 2hours or as tolerated. Off-load heels with pillow. cont with above care orders upon discharge (2) Abdominal pain Assessment & Plan: leukocytosis abd discomfort KUB with Findings: Severe fecal retention is noted. There is no evidence of abnormal gaseous distention of small bowel loops to suggest small bowel obstruction. Bones are demineralized. Degenerative and chronic changes are noted in the spine and bilateral hips. No acute osseous abnormality. Impression: Findings suggestive of marked rectal fecal retention/impaction. diet as tolerated d/c planning will follow with recs thank you Niels Carroll Apr 28, 2019 12:03
--- NOTE | 2019-04-28 13:59 | Pulmonology Progress Note ---
Assessment/Plan Problems: (1) Multiple sclerosis (2) Acute UTI (urinary tract infection) (3) Sacral decubitus ulcer, stage IV (4) Weakness generalized (5) suprapubic cathether malfunction (6) Acute metabolic encephalopathy Assessment/Plan Off Abx Wound care Surgery recs F/U recs, SPC care DVT Px: Hep SQ PT/OT Dispo planning --> D/W SW and per report APS was notified that patients home is unsafe (no CG, she was in feces @ home) but patient declines SNF, ? about capacity as well, will consult psych for capacity Subjective Allergies: Coded Allergies: CEPHALEXIN (Verified Allergy, Unknown, 11/19/09) HYDROMORPHONE (Unverified Allergy, Unknown, 12/27/18) INTERFERON BETA-1B (Verified Allergy, Unknown, 11/01/12) COULDN'T WALK AFTER TAKING MEDICATION NITROFURANTOIN (Verified Allergy, Unknown, 11/19/09) SULFA (SULFONAMIDE ANTIBIOTICS) (Unverified Allergy, Unknown, 12/27/18) SULFAMETHOXAZOLE (Verified Allergy, Unknown, 11/19/09) TRIMETHOPRIM (Verified Allergy, Unknown, 11/19/09) Uncoded Allergies: COTRIM (Allergy, Unknown, 12/27/18) Subjective AFVSS on RA Wants to go home, unclear who will care for her --> D/W SW, APS involved and per report home not safe BUT patient refused placement No F/C, no CP, no SOB, no NVDC Objective Last 24 Hour Vital Signs Date Time Temp Pulse Resp B/P (MAP) Pulse Ox O2 Delivery O2 Flow Rate FiO2 04/28/19 09:43 100 146/74 04/28/19 08:15 Room Air 04/28/19 08:00 98.2 103 22 146/74 (98) 97 04/28/19 04:00 99.0 99 18 129/74 (92) 97 99 04/28/19 00:00 98.5 98 18 140/66 (90) 97 98 04/27/19 20:36 Room Air 04/27/19 20:00 97.7 83 20 138/75 (96) 100 99 04/27/19 17:29 91 143/57 04/27/19 16:00 97.0 83 20 130/60 (83) 98 Intake and Output 04/27/19 04/28/19 19:00 07:00 Intake Total 625 ml 945 ml Output Total 500 ml 200 ml Balance 125 ml 745 ml Intake Oral 550 ml 420 ml IV Total 75 ml 525 ml Output Urine Total 500 ml 200 ml General Appearance: no acute distress, cachetic HEENT: normocephalic, atraumatic, anicteric, mucous membranes moist Respiratory/Chest: chest wall non-tender, lungs clear, normal breath sounds, no respiratory distress, no accessory muscle use Cardiovascular: normal peripheral pulses, normal rate, regular rhythm Abdomen: normal bowel sounds, soft, non tender, no organomegaly, non distended , no mass Extremities: no cyanosis, no clubbing, no edema, other - contractures Current Medications Medications (Trade) Dose Ordered Sig/Fransisca Route PRN Reason Start Time Stop Time Status Last Admin Dose Admin Amlodipine Besylate (Norvasc) 5 mg BID ORAL 04/26/19 18:00 05/17/19 17:59 04/28/19 09:43 Baclofen (Lioresal) 10 mg THREE TIMES A DAY ORAL 04/26/19 18:00 05/17/19 17:59 04/28/19 13:33 Bisacodyl (Dulcolax) 5 mg DAILY ORAL 04/27/19 09:00 05/18/19 08:59 04/28/19 09:42 Diphenhydramine HCl (Benadryl) 25 mg Q8H PRN ORAL Itching 04/26/19 15:00 05/25/19 14:59 Heparin Sodium (Porcine) (Heparin 5000 units/ml) 5,000 units EVERY 12 HOURS SUBQ 04/26/19 21:00 05/19/19 20:59 04/28/19 09:44 Multivitamins (Multivitamins) 1 tab DAILY ORAL 04/27/19 09:00 05/18/19 08:59 04/28/19 09:42 Oxycodone/ Acetaminophen (Percocet 10/325) 1 tab Q4H PRN ORAL For Pain 04/26/19 15:00 05/01/19 14:59 04/27/19 01:26 Sodium Chloride 1,000 ml @ 75 mls/hr [id number] IV 04/26/19 15:00 05/19/19 17:59 04/28/19 07:05 Vitamin D (Vitamin D) 1,000 intlu DAILY ORAL 04/27/19 09:00 05/18/19 08:59 04/28/19 09:42 Bon Zarate MD Apr 28, 2019 13:59
--- NOTE | 2019-04-28 14:06 | NUR ---
CAPACITY PLANNING MANAGER NOTES SPOKE WITH ERNST FROM [facility]. WILL FOLLOW UP. ERNST [phone]
[2019-04-28 16:00] VITALS: BP 143/66
--- NOTE | 2019-04-28 16:47 | NUR ---
Social Service Note EBENEZER spoke with Gretta MORALES [phone] who states patient is unable to return home. Home is under investigation for drug trafficking and has been deemed unsuitable living. Gretta states the [facility] breastfeeding peer counselor has made this a high profile case. EBENEZER requested breastfeeding peer counselor's contact information. Gretta also indicated that the Public Guardian's Office is expediting conservatorship. EBENEZER contacted the [facility] Guardian's Office [phone]. [facility] [phone] unit [address] assigned to case. Belkys is out of the office until 05/05/19. EBENEZER spoke with a duty-worker for unit 8, who indicates case will not be reviewed or reassigned until Belkys's return. EBENEZER met with patient who continues to decline SNF placement. Patient states her son was sentenced to 3 years but believes he will be released in August. Patient couldn't provide a clear plan as how to support herself at home. Patient indicated possible people such as her son's girlfriend or a friend named Will who she however states may be implemented in her son's drug charges. Patient provided her legal counsels contact information Piter Kevon [phone]. EBENEZER spoke with Piter Lund who states he is representing both patient's son and patient. Mr. Lund states he will speak with patient. EBENEZER left a message for Gretta requesting a meeting with all interested parties regarding placement and home safety. EBENEZER also requested assessments from Dr. Haynes. Will continue to follow up.
--- NOTE | 2019-04-28 19:25 | NUR ---
HAND-OFF: Report given to YOLANDA Garay.
--- NOTE | 2019-04-28 19:30 | NUR ---
NURSE NOTES: Received patient in no apparent distress. A&OX4. IV site patent and intact. Dressing noted on sacral, dry and intact. Bed in lowest position. Call light within reach. Will continue to monitor.
[2019-04-28 20:00] VITALS: BP 123/63
[2019-04-29] VITALS: BP 125/61
[2019-04-29 04:00] VITALS: BP 145/74
--- NOTE | 2019-04-29 07:41 | Urology Progress Note ---
Assessment/Plan Assessment/Plan: 1. Urinary retention with chronic suprapubic tube. 2. Neurogenic bladder. 3. Pyuria and probable colonized urine with possible UTI. 4. Hematuria. 5. Proteinuria. keep SP tube last replaced 04/18 hand irrigated and do PRN position is satisfactory s/p abx consider renal imaging study cysto later Subjective Allergies: Coded Allergies: CEPHALEXIN (Verified Allergy, Unknown, 11/19/09) HYDROMORPHONE (Unverified Allergy, Unknown, 12/27/18) INTERFERON BETA-1B (Verified Allergy, Unknown, 11/01/12) COULDN'T WALK AFTER TAKING MEDICATION NITROFURANTOIN (Verified Allergy, Unknown, 11/19/09) SULFA (SULFONAMIDE ANTIBIOTICS) (Unverified Allergy, Unknown, 12/27/18) SULFAMETHOXAZOLE (Verified Allergy, Unknown, 11/19/09) TRIMETHOPRIM (Verified Allergy, Unknown, 11/19/09) Uncoded Allergies: COTRIM (Allergy, Unknown, 12/27/18) Subjective all noted, SP tube draining OK Objective Last 24 Hour Vital Signs Date Time Temp Pulse Resp B/P (MAP) Pulse Ox O2 Delivery O2 Flow Rate FiO2 04/29/19 04:00 98.5 90 17 145/74 (97) 96 04/29/19 00:00 98.9 94 18 125/61 (82) 96 04/28/19 21:00 Room Air 04/28/19 20:00 99.3 100 17 123/63 (83) 96 04/28/19 17:26 102 109/53 04/28/19 16:00 98.6 93 20 143/66 (91) 97 04/28/19 12:00 99.1 103 20 120/72 (88) 97 04/28/19 09:43 100 146/74 04/28/19 08:15 Room Air 04/28/19 08:00 98.2 103 22 146/74 (98) 97 Intake and Output 04/28/19 04/29/19 18:59 06:59 Intake Total 180 ml 900 ml Output Total 2300 ml 1000 ml Balance -2120 ml -100 ml Intake Oral 180 ml IV Total 900 ml Output Urine Total 2300 ml 1000 ml # Voids 2 1 # Bowel Movements 1 Microbiology Date/Time Source Procedure Growth Status 04/17/19 14:37 Urine,Clean Catch Urine Culture - Final Escherichia Coli Complete Current Medications Medications (Trade) Dose Ordered Sig/Fransisca Route PRN Reason Start Time Stop Time Status Last Admin Dose Admin Amlodipine Besylate (Norvasc) 5 mg BID ORAL 04/26/19 18:00 05/17/19 17:59 04/28/19 09:43 Baclofen (Lioresal) 10 mg THREE TIMES A DAY ORAL 04/26/19 18:00 05/17/19 17:59 04/28/19 17:25 Bisacodyl (Dulcolax) 5 mg DAILY ORAL 04/27/19 09:00 05/18/19 08:59 04/28/19 09:42 Diphenhydramine HCl (Benadryl) 25 mg Q8H PRN ORAL Itching 04/26/19 15:00 05/25/19 14:59 Heparin Sodium (Porcine) (Heparin 5000 units/ml) 5,000 units EVERY 12 HOURS SUBQ 04/26/19 21:00 05/19/19 20:59 04/28/19 20:52 Multivitamins (Multivitamins) 1 tab DAILY ORAL 04/27/19 09:00 05/18/19 08:59 04/28/19 09:42 Oxycodone/ Acetaminophen (Percocet 10/325) 1 tab Q4H PRN ORAL For Pain 04/26/19 15:00 05/01/19 14:59 04/28/19 20:58 Sodium Chloride 1,000 ml @ 75 mls/hr [id number] IV 04/26/19 15:00 05/19/19 17:59 04/28/19 20:51 Vitamin D (Vitamin D) 1,000 intlu DAILY ORAL 04/27/19 09:00 05/18/19 08:59 04/28/19 09:42 Height (Feet): 5 Height (Inches): 3.00 Weight (Pounds): 153 Objective exam stable SP tube in place, urine yellow with some debris Jah Syed MD Apr 29, 2019 07:41
--- NOTE | 2019-04-29 07:51 | NUR ---
HAND-OFF: Report given to Kriss GUERRERO.
[2019-04-29 08:00] VITALS: BP 126/60
[2019-04-29] MEDS: Bisacodyl EC 5mg tab ORAL SCH (09:34)
[2019-04-29] MEDS: Heparin 5000 units/ml inj SUBQ SCH ×2 (09:37→20:33)
[2019-04-29] MEDS: Vitamin D 1000 IU Tab ORAL SCH (09:50)
--- NOTE | 2019-04-29 11:24 | Pulmonology Progress Note ---
Assessment/Plan Problems: (1) Multiple sclerosis (2) Acute UTI (urinary tract infection) (3) Sacral decubitus ulcer, stage IV (4) Weakness generalized (5) suprapubic cathether malfunction (6) Acute metabolic encephalopathy Assessment/Plan Off Abx Wound care Surgery recs F/U recs, SPC care DVT Px: Hep SQ PT/OT Dispo planning --> SW eval noted and appreciated. Per APS pt unable to return home, conservatorship in progress. Subjective Allergies: Coded Allergies: CEPHALEXIN (Verified Allergy, Unknown, 11/19/09) HYDROMORPHONE (Unverified Allergy, Unknown, 12/27/18) INTERFERON BETA-1B (Verified Allergy, Unknown, 11/01/12) COULDN'T WALK AFTER TAKING MEDICATION NITROFURANTOIN (Verified Allergy, Unknown, 11/19/09) SULFA (SULFONAMIDE ANTIBIOTICS) (Unverified Allergy, Unknown, 12/27/18) SULFAMETHOXAZOLE (Verified Allergy, Unknown, 11/19/09) TRIMETHOPRIM (Verified Allergy, Unknown, 11/19/09) Uncoded Allergies: COTRIM (Allergy, Unknown, 12/27/18) Subjective AFVSS on RA SW assistance appreciated and noted - please see A&P No F/C, no CP, no SOB, no NVDC Objective Last 24 Hour Vital Signs Date Time Temp Pulse Resp B/P (MAP) Pulse Ox O2 Delivery O2 Flow Rate FiO2 04/29/19 09:35 94 126/60 04/29/19 08:00 97.9 94 20 126/60 (82) 97 04/29/19 04:00 98.5 90 17 145/74 (97) 96 04/29/19 00:00 98.9 94 18 125/61 (82) 96 04/28/19 21:00 Room Air 04/28/19 20:00 99.3 100 17 123/63 (83) 96 04/28/19 17:26 102 109/53 04/28/19 16:00 98.6 93 20 143/66 (91) 97 04/28/19 12:00 99.1 103 20 120/72 (88) 97 Intake and Output 04/28/19 04/29/19 19:00 07:00 Intake Total 255 ml 825 ml Output Total 2300 ml 1000 ml Balance -2045 ml -175 ml Intake Oral 180 ml IV Total 75 ml 825 ml Output Urine Total 2300 ml 1000 ml # Voids 2 1 # Bowel Movements 1 General Appearance: WD/WN, no acute distress HEENT: normocephalic, atraumatic, anicteric, mucous membranes moist Respiratory/Chest: chest wall non-tender, lungs clear, normal breath sounds, no respiratory distress, no accessory muscle use Cardiovascular: normal peripheral pulses, normal rate, regular rhythm Abdomen: normal bowel sounds, soft, non tender, no organomegaly, non distended , no mass Extremities: no cyanosis, no clubbing, no edema, other - + contracted Current Medications Medications (Trade) Dose Ordered Sig/Fransisca Route PRN Reason Start Time Stop Time Status Last Admin Dose Admin Amlodipine Besylate (Norvasc) 5 mg BID ORAL 04/26/19 18:00 05/17/19 17:59 04/29/19 09:35 Baclofen (Lioresal) 10 mg THREE TIMES A DAY ORAL 04/26/19 18:00 05/17/19 17:59 04/29/19 09:35 Bisacodyl (Dulcolax) 5 mg DAILY ORAL 04/27/19 09:00 05/18/19 08:59 04/29/19 09:34 Diphenhydramine HCl (Benadryl) 25 mg Q8H PRN ORAL Itching 04/26/19 15:00 05/25/19 14:59 04/29/19 09:35 Heparin Sodium (Porcine) (Heparin 5000 units/ml) 5,000 units EVERY 12 HOURS SUBQ 04/26/19 21:00 05/19/19 20:59 04/29/19 09:37 Multivitamins (Multivitamins) 1 tab DAILY ORAL 04/27/19 09:00 05/18/19 08:59 04/29/19 09:34 Oxycodone/ Acetaminophen (Percocet 10/325) 1 tab Q4H PRN ORAL For Pain 04/26/19 15:00 05/01/19 14:59 04/29/19 10:26 Sodium Chloride 1,000 ml @ 75 mls/hr [id number] IV 04/26/19 15:00 05/19/19 17:59 04/29/19 09:52 Vitamin D (Vitamin D) 1,000 intlu DAILY ORAL 04/27/19 09:00 05/18/19 08:59 04/29/19 09:50 Bon Zarate MD Apr 29, 2019 11:24
[2019-04-29 12:00] VITALS: BP_SYST 123; BP_SYST 130; BP_DIAS 65; BP_DIAS 77
--- NOTE | 2019-04-29 12:42 | NUR ---
CASE MANAGEMENT: REVIEW 04/29/2019 SI:ACUTE UTI. T 98.5 HR 90 RR 17 B/P 145/74 SATS 96% ON RA GLU 129 IS: IVF @ 75 mL/HR NORVASC PO BID BACLOFEN PO TID MED/SURG STATUS PLAN OF CARE: PT EVAL DC PLANNING
--- NOTE | 2019-04-29 12:46 | NUR ---
DISCHARGE PLANNING: NOTE F/U MADE WITH ERNST [phone] REGARDING SNF PLACEMENT PENDING CM CONTACT INFO PROVIDED. AWAITING CALL BACK ON POSSIBLE SNF ACCEPTANCE
--- NOTE | 2019-04-29 12:48 | NUR ---
INSURANCE REVIEWS FAXED TO [facility] #[phone] FAX#[phone]
--- NOTE | 2019-04-29 13:35 | NUR ---
RD ASSESSMENT & RECOMMENDATIONS SEE CARE ACTIVITY FOR COMPLETE ASSESSMENT DAILY ESTIMATED NEEDS: Needs based on Wounds, 53.5kg abw 25-30 kcals/kg 1553-2309 total kcals 1.25-1.5 g protein/kg 67-80 g total protein 25-30 mL/kg 8998-9392 total fluid mLs NUTRITION DIAGNOSIS: Increased kcal/prot intake needs R/T wound healing as evidenced by pt admitted w/ full thickness pressure injury at R buttocks, R ischium, lateral L tibia, and lateral L foot. CURRENT DIET:REGULAR, mech soft chopped PO DIET RECOMMENDATIONS: Maintain regular/ texture as tolerated or per SENIOR ASIC ENGINEER ADDITIONAL RECOMMENDATIONS: * Calibrated bedscale wt for accurate CBW * Consider SENIOR ASIC ENGINEER eval for appropriate texture: pt asking for regular texture * Wound healing: continue MVI : add Vit C 500mg BID, ZnSO4 220mg QD x 10 days : Anival 1pkt BID added to tray
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
[2019-04-29 16:00] VITALS: BP 131/69
--- NOTE | 2019-04-29 19:32 | NUR ---
HAND-OFF: Report given to YOLANDA Garay.
--- NOTE | 2019-04-29 19:33 | NUR ---
NURSE NOTES: Received patient in no apparent distress. A&OX4. IV site patent and intact. Suprapubic cath on, draining well by gravity, yellow urine noted. Dressing noted on sacral, dry and intact. Bed in lowest position. Call light within reach. Will continue to monitor.
[2019-04-29 20:00] VITALS: BP 144/72
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
--- NOTE | 2019-04-29 23:06 | NUR ---
NURSE NOTES: Dressing was changed on sacral and buttocks, and bilateral heels. Dry and intact.
[2019-04-30] VITALS: BP 134/90
[2019-04-30 04:00] VITALS: BP 158/82
--- NOTE | 2019-04-30 07:10 | NUR ---
NURSE NOTES: HANDOFF RECEIVED FROM YOLANDA BYRNES. PATIENT RECEIVED AWAKE AND ALERT AND RESTING IN BED. NO PHYSICAL SIGNS OF DISCOMFORT. PATIENT IS ON ROOM AIR WITH SUPRAPUBIC CATHETER ATTACHED TO THE LEG AND PATENT, NOTICED SOME SLIGHT VAGINAL LEAKING OF URINE. IV SITE LEFT FOOT RUNNING PRESCRIBED FLUIDS AT 75ML HOUR. PATIENT HAS CALL LIGHT WITHIN REACH AND THE BED IN THE LOCKED AND LOWEST POSITION. WILL CONTINUE TO MONITOR.
[2019-04-30 08:00] VITALS: BP 137/68
--- NOTE | 2019-04-30 08:45 | Urology Progress Note ---
Assessment/Plan Assessment/Plan: 1. Urinary retention with chronic suprapubic tube. 2. Neurogenic bladder. 3. Pyuria and probable colonized urine with possible UTI. 4. Hematuria. 5. Proteinuria. keep SP tube last replaced 04/18 hand irrigated and do PRN position is satisfactory s/p abx consider renal imaging study cysto later Subjective Allergies: Coded Allergies: CEPHALEXIN (Verified Allergy, Unknown, 11/19/09) HYDROMORPHONE (Unverified Allergy, Unknown, 12/27/18) INTERFERON BETA-1B (Verified Allergy, Unknown, 11/01/12) COULDN'T WALK AFTER TAKING MEDICATION NITROFURANTOIN (Verified Allergy, Unknown, 11/19/09) SULFA (SULFONAMIDE ANTIBIOTICS) (Unverified Allergy, Unknown, 12/27/18) SULFAMETHOXAZOLE (Verified Allergy, Unknown, 11/19/09) TRIMETHOPRIM (Verified Allergy, Unknown, 11/19/09) Uncoded Allergies: COTRIM (Allergy, Unknown, 12/27/18) Subjective all noted, SP tube draining OK Objective Last 24 Hour Vital Signs Date Time Temp Pulse Resp B/P (MAP) Pulse Ox O2 Delivery O2 Flow Rate FiO2 04/30/19 04:00 98.1 88 16 158/82 (107) 99 04/30/19 00:00 97.8 90 18 134/90 (105) 98 04/29/19 21:00 Room Air 04/29/19 20:00 98.3 102 18 144/72 (96) 99 04/29/19 18:21 89 131/69 04/29/19 16:00 98.0 89 17 131/69 (89) 98 04/29/19 12:00 98.4 90 18 130/65 (86) 100 04/29/19 10:56 97.9 04/29/19 09:35 94 126/60 04/29/19 09:00 Room Air Intake and Output 04/29/19 04/30/19 18:59 06:59 Intake Total 900 ml 900 ml Output Total 1400 ml 1000 ml Balance -500 ml -100 ml IV Total 900 ml Other 900 ml Output Urine Total 1400 ml 1000 ml Microbiology Date/Time Source Procedure Growth Status 04/17/19 14:37 Urine,Clean Catch Urine Culture - Final Escherichia Coli Complete Current Medications Medications (Trade) Dose Ordered Sig/Fransisca Route PRN Reason Start Time Stop Time Status Last Admin Dose Admin Amlodipine Besylate (Norvasc) 5 mg BID ORAL 04/26/19 18:00 05/17/19 17:59 04/29/19 18:21 Baclofen (Lioresal) 10 mg THREE TIMES A DAY ORAL 04/26/19 18:00 05/17/19 17:59 04/29/19 18:21 Bisacodyl (Dulcolax) 5 mg DAILY ORAL 04/27/19 09:00 05/18/19 08:59 04/29/19 09:34 Diphenhydramine HCl (Benadryl) 25 mg Q8H PRN ORAL Itching 04/26/19 15:00 05/25/19 14:59 04/29/19 09:35 Heparin Sodium (Porcine) (Heparin 5000 units/ml) 5,000 units EVERY 12 HOURS SUBQ 04/26/19 21:00 05/19/19 20:59 04/29/19 20:33 Multivitamins (Multivitamins) 1 tab DAILY ORAL 04/27/19 09:00 05/18/19 08:59 04/29/19 09:34 Oxycodone/ Acetaminophen (Percocet 10/325) 1 tab Q4H PRN ORAL For Pain 04/26/19 15:00 05/01/19 14:59 04/29/19 10:26 Sodium Chloride 1,000 ml @ 75 mls/hr [id number] IV 04/26/19 15:00 05/19/19 17:59 04/29/19 23:08 Vitamin D (Vitamin D) 1,000 intlu DAILY ORAL 04/27/19 09:00 05/18/19 08:59 04/29/19 09:50 Height (Feet): 5 Height (Inches): 3.00 Weight (Pounds): 153 Objective exam stable SP tube in place, urine yellow with some debris Jah Syed MD Apr 30, 2019 08:45
[2019-04-30] MEDS: Vitamin D 1000 IU Tab ORAL SCH (09:57)
[2019-04-30] MEDS: Bisacodyl EC 5mg tab ORAL SCH (09:58)
[2019-04-30] MEDS: Heparin 5000 units/ml inj SUBQ SCH ×2 (10:04→21:29)
[2019-04-30 12:00] VITALS: BP 140/76
--- NOTE | 2019-04-30 12:03 | NUR ---
CASE MANAGEMENT: REVIEW 04/30/2019 SI:ACUTE UTI. T 97.5 HR 87 RR 18 B/P 137/68 SATS NO LABS TODAY IS: IVF @ 75 mL/HR NORVASC PO BID BACLOFEN PO TID MED/SURG STATUS PLAN OF CARE: DC PLANNING
--- NOTE | 2019-04-30 12:05 | NUR ---
DISCHARGE PLANNING: NOTE F/U MADE WITH ERNST [phone] REGARDING SNF PLACEMENT. NO ACCEPTING FACILITIES. CLINICALS FAXED TO [facility]. [facility] IS UNABLE TO ACCOMMODATE THIS PATIENT AT THIS TIME.
--- NOTE | 2019-04-30 12:09 | NUR ---
INSURANCE REVIEWS FAXED TO [facility] #[phone] FAX#[phone]
--- NOTE | 2019-04-30 12:23 | Cardiology Report ---
APPROVED REPORT EKG Measurement Heart [id number] Normal sinus rhythm Possible Left atrial enlargement Left ventricular hypertrophy ST elevation, consider early repolarization, pericarditis, or injury Abnormal ECG
--- NOTE | 2019-04-30 14:36 | Pulmonology Progress Note ---
Assessment/Plan Problems: (1) Multiple sclerosis (2) Acute UTI (urinary tract infection) (3) Sacral decubitus ulcer, stage IV (4) Weakness generalized (5) suprapubic cathether malfunction (6) Acute metabolic encephalopathy Assessment/Plan Off Abx Wound care Surgery recs F/U recs, SPC care DVT Px: Hep SQ PT/OT Dispo planning --> SW eval noted and appreciated. Per APS pt unable to return home, conservatorship in progress. No capacity per psych Subjective Allergies: Coded Allergies: CEPHALEXIN (Verified Allergy, Unknown, 11/19/09) HYDROMORPHONE (Unverified Allergy, Unknown, 12/27/18) INTERFERON BETA-1B (Verified Allergy, Unknown, 11/01/12) COULDN'T WALK AFTER TAKING MEDICATION NITROFURANTOIN (Verified Allergy, Unknown, 11/19/09) SULFA (SULFONAMIDE ANTIBIOTICS) (Unverified Allergy, Unknown, 12/27/18) SULFAMETHOXAZOLE (Verified Allergy, Unknown, 11/19/09) TRIMETHOPRIM (Verified Allergy, Unknown, 11/19/09) Uncoded Allergies: COTRIM (Allergy, Unknown, 12/27/18) Subjective AFVSS on RA SW assistance appreciated and noted - please see A&P Per psych no capacity No F/C, no CP, no SOB, no NVDC Objective Last 24 Hour Vital Signs Date Time Temp Pulse Resp B/P (MAP) Pulse Ox O2 Delivery O2 Flow Rate FiO2 04/30/19 12:00 98.2 93 17 140/76 (97) 99 04/30/19 09:58 87 137/68 04/30/19 09:00 Room Air 04/30/19 08:00 97.8 87 18 137/68 (91) 98 04/30/19 04:00 98.1 88 16 158/82 (107) 99 04/30/19 00:00 97.8 90 18 134/90 (105) 98 04/29/19 21:00 Room Air 04/29/19 20:00 98.3 102 18 144/72 (96) 99 04/29/19 18:21 89 131/69 04/29/19 16:00 98.0 89 17 131/69 (89) 98 Intake and Output 04/29/19 04/30/19 19:00 07:00 Intake Total 975 ml 825 ml Output Total 1400 ml 1000 ml Balance -425 ml -175 ml IV Total 75 ml 825 ml Other 900 ml Output Urine Total 1400 ml 1000 ml General Appearance: WD/WN, no acute distress HEENT: normocephalic, atraumatic, anicteric, mucous membranes moist Respiratory/Chest: chest wall non-tender, lungs clear, normal breath sounds, no respiratory distress, no accessory muscle use Cardiovascular: normal peripheral pulses, normal rate, regular rhythm Abdomen: normal bowel sounds, soft, non tender, no organomegaly, non distended , no mass Extremities: no cyanosis, no clubbing, no edema, other - + contractures Current Medications Medications (Trade) Dose Ordered Sig/Fransisca Route PRN Reason Start Time Stop Time Status Last Admin Dose Admin Amlodipine Besylate (Norvasc) 5 mg BID ORAL 04/26/19 18:00 05/17/19 17:59 04/30/19 09:58 Baclofen (Lioresal) 10 mg THREE TIMES A DAY ORAL 04/26/19 18:00 05/17/19 17:59 04/30/19 13:32 Bisacodyl (Dulcolax) 5 mg DAILY ORAL 04/27/19 09:00 05/18/19 08:59 04/30/19 09:58 Diphenhydramine HCl (Benadryl) 25 mg Q8H PRN ORAL Itching 04/26/19 15:00 05/25/19 14:59 04/29/19 09:35 Heparin Sodium (Porcine) (Heparin 5000 units/ml) 5,000 units EVERY 12 HOURS SUBQ 04/26/19 21:00 05/19/19 20:59 04/30/19 10:04 Multivitamins (Multivitamins) 1 tab DAILY ORAL 04/27/19 09:00 05/18/19 08:59 04/30/19 09:58 Oxycodone/ Acetaminophen (Percocet 10/325) 1 tab Q4H PRN ORAL For Pain 04/26/19 15:00 05/01/19 14:59 04/29/19 10:26 Sodium Chloride 1,000 ml @ 75 mls/hr [id number] IV 04/26/19 15:00 05/19/19 17:59 04/30/19 13:32 Vitamin D (Vitamin D) 1,000 intlu DAILY ORAL 04/27/19 09:00 05/18/19 08:59 04/30/19 09:57 Bon Zarate MD Apr 30, 2019 14:36
[2019-04-30 16:00] VITALS: BP 163/89
--- NOTE | 2019-04-30 16:58 | Surgery Progress Note ---
Surgery Progress Note Subjective Additional Comments no acute events states she is well pending placement Objective Last 24 Hour Vital Signs Date Time Temp Pulse Resp B/P (MAP) Pulse Ox O2 Delivery O2 Flow Rate FiO2 04/30/19 12:00 98.2 93 17 140/76 (97) 99 04/30/19 09:58 87 137/68 04/30/19 09:00 Room Air 04/30/19 08:00 97.8 87 18 137/68 (91) 98 04/30/19 04:00 98.1 88 16 158/82 (107) 99 04/30/19 00:00 97.8 90 18 134/90 (105) 98 04/29/19 21:00 Room Air 04/29/19 20:00 98.3 102 18 144/72 (96) 99 04/29/19 18:21 89 131/69 I&O Intake and Output 04/29/19 04/30/19 19:00 07:00 Intake Total 975 ml 825 ml Output Total 1400 ml 1000 ml Balance -425 ml -175 ml IV Total 75 ml 825 ml Other 900 ml Output Urine Total 1400 ml 1000 ml Dressing: saturated Wound: other Drains: other Cardiovascular: RSR Respiratory: clear Abdomen: soft, non-tender, present bowel sounds Extremities: no cyanosis, other Plan Problems: (1) Sacral decubitus ulcer, stage IV Assessment & Plan: PT presented on admission in grossly unkempt state with multiple pressure injuries. Full thickness stage 4 pressure injury sacrococcygeal area(L)4cm x (W)2.5cm x (D)0.7cm. Biofilm at base of wound and bone is palpable. Additionally, surrounding areas of wound encompassing R and L buttocks and extending into both ischial regions are erythematous -moist with scattered areas of slough and scattered pink epithelial (L)14.5cm x (W)11cm. Full thickness pressure injury R buttocks with 80% slough (L)1.5cm x (W)1cm. Full thickness pressure injury R ischium . Base of wound has 100% slough. (L) (L )2.4cm x (W)3.5cm. Borders and surrounding areas are moist and viable. Tender when minimally palpated. Full thickness pressure injury lateral L tibia .base of wound with mixed eschar and slough . No odor noted .Small amt seropurulent exudate. periwound has darker skin tone with dry, scaly skin.(L)5cm x (W)2cm. Full thickness ulcer lateral L foot . Base of wound 50% viable ,50% slough.Borders are macerated. Periwound dry and flaky without erythema or fluctuance. Tx.Plan. Cleanse sacrococcygeal wound with saline. Apply Therahoney . Apply Moisture Barrier Paste to surrounding buttocks Cover with Optifoam drsg Daily and prn. Cleanse Wound R buttocks with saline. Apply Therahoney. Apply Moisture Barrier periwound. Cover with Optifoam Daily and prn. Cleanse R ischial wound with saline.Apply Therahoney. Apply Moisture Barrier periwound .Cover with Optifoam drsg Daily and prn. Apply Cavilon Skin Barrier to both heels. Cover each heel with Optifoam drsg. Change every 7 days and prn. APM/DESTIN Mattress. Reposition at least every 2hours or as tolerated. Off-load heels with pillow. cont with above care orders upon discharge (2) Abdominal pain Assessment & Plan: leukocytosis resolved abd discomfort resolved KUB with Findings: Severe fecal retention is noted. There is no evidence of abnormal gaseous distention of small bowel loops to suggest small bowel obstruction. Bones are demineralized. Degenerative and chronic changes are noted in the spine and bilateral hips. No acute osseous abnormality.Impression: Findings suggestive of marked rectal fecal retention/impaction. diet as tolerated d/c planning from surgical standpoint will follow with recs thank you Niels Carroll Apr 30, 2019 16:58
--- NOTE | 2019-04-30 19:30 | NUR ---
NURSE NOTES: RECEIVED PATIENT LYING IN BED, AWAKE, ALERT/ORIENTED X4, VERBALLY RESPONSIVE, DENIES PAIN. IV FLUIDS INFUSING, NO REDNESS/SWELLING NOTED TO SITE. NO SIGNS AND SYMPTOMS OF ACUTE CARDIO RESPIRATORY DISTRESS/SHORTNESS OF BREATH, DENIES CHEST PAIN, NO PERIPHERAL EDEMA NOTED. UPPER AND LOWER EXTREMITIES CONTRACTED/NOTED WITH FOOT DROP. ABDOMEN SOFT/NON TENDER/SUPRAPUBIC CATHETER INTACT DRAINING YELLOW URINE VIA GRAVITY, NO SIGNS AND SYMPTOMS OF HEMATURIA, PROPERLY ANCHORED TO THIGH. REPOSITIONED FOR COMFORT/PRESSURE RELIEF, ELEVATED BILATERAL LOWER EXTREMITIES WITH PILLOW LENGTHWISE, HEELS FLOATING. SIDE RAILS UP X3/BED IN LOWEST POSITION FOR SAFETY. CALL LIGHT WITHIN REACH. NAD.
--- NOTE | 2019-04-30 19:40 | NUR ---
HAND-OFF: Report given to YOLANDA Huston.
[2019-04-30 20:00] VITALS: BP 103/70
[2019-05-01] VITALS: BP 150/81
--- NOTE | 2019-05-01 03:45 | Progress Note ---
DATE: 04/30/2019 SUBJECTIVE: The patient was moaning in pain, was able to answer the questions. Has anxiety. Poor insight. Poor memory. MENTAL STATUS EXAMINATION: Alert and oriented times self, place. poor insight into the situation she is. Mood is anxious. Affect is constricted, congruent with mood. Thought process is concrete. Thought content, no suicidal or homicidal ideation. ASSESSMENT: 1. The patient lacks capacity to make decisions. Provide the patient with reality orientation and supportive therapy. 2. Continue current treatment. Christie Byrd M.D. DR: EVETTE JOB#: [id number] CC: GARY
[2019-05-01 04:00] VITALS: BP 111/80
--- NOTE | 2019-05-01 06:08 | NUR ---
NURSE NOTES: RESTED WELL, NO SIGNIFICANT CHANGE OF CONDITION NOTED THROUGHOUT THE NIGHT. SAFETY MAINTAINED. NAD.
--- NOTE | 2019-05-01 07:34 | NUR ---
HAND-OFF: Report given to YOLANDA EMANUEL.
--- NOTE | 2019-05-01 07:45 | NUR ---
NURSE NOTES: handoff received from YOLANDA Petersen. Patient received alert and oriented in bed talking on the phone. bed is in the locked and lowest position and call light is within reach, no physical signs of discomfort.
--- NOTE | 2019-05-01 07:53 | Urology Progress Note ---
Assessment/Plan Assessment/Plan: 1. Urinary retention with chronic suprapubic tube. 2. Neurogenic bladder. 3. Pyuria and probable colonized urine with possible UTI. 4. Hematuria. 5. Proteinuria. keep SP tube last replaced 04/18 hand irrigated and do PRN position is satisfactory s/p abx consider renal imaging study cysto later Subjective Allergies: Coded Allergies: CEPHALEXIN (Verified Allergy, Unknown, 11/19/09) HYDROMORPHONE (Unverified Allergy, Unknown, 12/27/18) INTERFERON BETA-1B (Verified Allergy, Unknown, 11/01/12) COULDN'T WALK AFTER TAKING MEDICATION NITROFURANTOIN (Verified Allergy, Unknown, 11/19/09) SULFA (SULFONAMIDE ANTIBIOTICS) (Unverified Allergy, Unknown, 12/27/18) SULFAMETHOXAZOLE (Verified Allergy, Unknown, 11/19/09) TRIMETHOPRIM (Verified Allergy, Unknown, 11/19/09) Uncoded Allergies: COTRIM (Allergy, Unknown, 12/27/18) Subjective all noted, SP tube draining OK Objective Last 24 Hour Vital Signs Date Time Temp Pulse Resp B/P (MAP) Pulse Ox O2 Delivery O2 Flow Rate FiO2 05/01/19 04:00 98.8 97 18 111/80 (90) 100 05/01/19 00:00 98.6 101 18 150/81 (104) 98 04/30/19 21:00 Room Air 04/30/19 20:00 98.7 99 18 103/70 (81) 99 04/30/19 17:15 98 163/89 04/30/19 16:00 98.6 98 18 163/89 (113) 100 04/30/19 12:00 98.2 93 17 140/76 (97) 99 04/30/19 09:58 87 137/68 04/30/19 09:00 Room Air 04/30/19 08:00 97.8 87 18 137/68 (91) 98 Intake and Output 04/30/19 05/01/19 19:00 07:00 Intake Total 475 ml 1035 ml Output Total 2000 ml 500 ml Balance -1525 ml 535 ml Intake Oral 400 ml 360 ml IV Total 75 ml 675 ml Output Urine Total 2000 ml 500 ml # Bowel Movements 2 Microbiology Date/Time Source Procedure Growth Status 04/17/19 14:37 Urine,Clean Catch Urine Culture - Final Escherichia Coli Complete Current Medications Medications (Trade) Dose Ordered Sig/Fransisca Route PRN Reason Start Time Stop Time Status Last Admin Dose Admin Amlodipine Besylate (Norvasc) 5 mg BID ORAL 04/26/19 18:00 05/17/19 17:59 04/30/19 17:15 Baclofen (Lioresal) 10 mg THREE TIMES A DAY ORAL 04/26/19 18:00 05/17/19 17:59 04/30/19 17:15 Bisacodyl (Dulcolax) 5 mg DAILY ORAL 04/27/19 09:00 05/18/19 08:59 04/30/19 09:58 Diphenhydramine HCl (Benadryl) 25 mg Q8H PRN ORAL Itching 04/26/19 15:00 05/25/19 14:59 04/29/19 09:35 Heparin Sodium (Porcine) (Heparin 5000 units/ml) 5,000 units EVERY 12 HOURS SUBQ 04/26/19 21:00 05/19/19 20:59 04/30/19 21:29 Multivitamins (Multivitamins) 1 tab DAILY ORAL 04/27/19 09:00 05/18/19 08:59 04/30/19 09:58 Oxycodone/ Acetaminophen (Percocet 10/325) 1 tab Q4H PRN ORAL For Pain 04/26/19 15:00 05/01/19 14:59 04/29/19 10:26 Sodium Chloride 1,000 ml @ 75 mls/hr [id number] IV 04/26/19 15:00 05/19/19 17:59 05/01/19 01:40 Vitamin D (Vitamin D) 1,000 intlu DAILY ORAL 04/27/19 09:00 05/18/19 08:59 04/30/19 09:57 Height (Feet): 5 Height (Inches): 3.00 Weight (Pounds): 153 Objective exam stable SP tube in place, urine yellow with some debris Jah Syed MD May 01, 2019 07:53
[2019-05-01 08:00] VITALS: BP 146/77
--- NOTE | 2019-05-01 08:28 | Pulmonology Progress Note ---
Assessment/Plan Problems: (1) Multiple sclerosis (2) Acute UTI (urinary tract infection) (3) Sacral decubitus ulcer, stage IV (4) Weakness generalized (5) suprapubic cathether malfunction (6) Acute metabolic encephalopathy Assessment/Plan Off Abx Wound care Surgery recs F/U recs, SPC care DVT Px: Hep SQ PT/OT Dispo planning --> SW eval noted and appreciated. Per APS pt unable to return home, conservatorship in progress. No capacity per psych Subjective Allergies: Coded Allergies: CEPHALEXIN (Verified Allergy, Unknown, 11/19/09) HYDROMORPHONE (Unverified Allergy, Unknown, 12/27/18) INTERFERON BETA-1B (Verified Allergy, Unknown, 11/01/12) COULDN'T WALK AFTER TAKING MEDICATION NITROFURANTOIN (Verified Allergy, Unknown, 11/19/09) SULFA (SULFONAMIDE ANTIBIOTICS) (Unverified Allergy, Unknown, 12/27/18) SULFAMETHOXAZOLE (Verified Allergy, Unknown, 11/19/09) TRIMETHOPRIM (Verified Allergy, Unknown, 11/19/09) Uncoded Allergies: COTRIM (Allergy, Unknown, 12/27/18) Subjective AFVSS on RA KAREN No F/C, no CP, no SOB, no NVDC Objective Last 24 Hour Vital Signs Date Time Temp Pulse Resp B/P (MAP) Pulse Ox O2 Delivery O2 Flow Rate FiO2 05/01/19 08:00 97.6 91 18 146/77 (100) 100 05/01/19 04:00 98.8 97 18 111/80 (90) 100 05/01/19 00:00 98.6 101 18 150/81 (104) 98 04/30/19 21:00 Room Air 04/30/19 20:00 98.7 99 18 103/70 (81) 99 04/30/19 17:15 98 163/89 04/30/19 16:00 98.6 98 18 163/89 (113) 100 04/30/19 12:00 98.2 93 17 140/76 (97) 99 04/30/19 09:58 87 137/68 04/30/19 09:00 Room Air Intake and Output 04/30/19 05/01/19 18:59 06:59 Intake Total 400 ml 1110 ml Output Total 2000 ml 500 ml Balance -1600 ml 610 ml Intake Oral 400 ml 360 ml IV Total 750 ml Output Urine Total 2000 ml 500 ml # Bowel Movements 2 General Appearance: WD/WN, no acute distress HEENT: normocephalic, atraumatic, anicteric, mucous membranes moist Respiratory/Chest: chest wall non-tender, lungs clear, normal breath sounds, no respiratory distress, no accessory muscle use Cardiovascular: normal peripheral pulses, normal rate, regular rhythm Abdomen: normal bowel sounds, soft, non tender, no organomegaly, non distended , no mass Extremities: no cyanosis, no clubbing, no edema, other - ULE contractures Current Medications Medications (Trade) Dose Ordered Sig/Fransisca Route PRN Reason Start Time Stop Time Status Last Admin Dose Admin Amlodipine Besylate (Norvasc) 5 mg BID ORAL 04/26/19 18:00 05/17/19 17:59 04/30/19 17:15 Baclofen (Lioresal) 10 mg THREE TIMES A DAY ORAL 04/26/19 18:00 05/17/19 17:59 04/30/19 17:15 Bisacodyl (Dulcolax) 5 mg DAILY ORAL 04/27/19 09:00 05/18/19 08:59 04/30/19 09:58 Diphenhydramine HCl (Benadryl) 25 mg Q8H PRN ORAL Itching 04/26/19 15:00 05/25/19 14:59 04/29/19 09:35 Heparin Sodium (Porcine) (Heparin 5000 units/ml) 5,000 units EVERY 12 HOURS SUBQ 04/26/19 21:00 05/19/19 20:59 04/30/19 21:29 Multivitamins (Multivitamins) 1 tab DAILY ORAL 04/27/19 09:00 05/18/19 08:59 04/30/19 09:58 Oxycodone/ Acetaminophen (Percocet 10/325) 1 tab Q4H PRN ORAL For Pain 04/26/19 15:00 05/01/19 14:59 04/29/19 10:26 Sodium Chloride 1,000 ml @ 75 mls/hr [id number] IV 04/26/19 15:00 05/19/19 17:59 05/01/19 01:40 Vitamin D (Vitamin D) 1,000 intlu DAILY ORAL 04/27/19 09:00 9/9/19 08:59 04/30/19 09:57 Bon Zarate MD May 01, 2019 08:27
--- NOTE | 2019-05-01 09:05 | NUR ---
NURSE NOTES: left foot IV site is swollen but patient says is non tender. I have stopped the IV NS running until a second IV line can be placed.
[2019-05-01] MEDS: Vitamin D 1000 IU Tab ORAL SCH (09:12)
[2019-05-01] MEDS: Bisacodyl EC 5mg tab ORAL SCH (09:12)
[2019-05-01] MEDS: Heparin 5000 units/ml inj SUBQ SCH ×2 (09:15→21:09)
[2019-05-01 12:00] VITALS: BP 136/68
--- NOTE | 2019-05-01 12:32 | NUR ---
CASE MANAGEMENT: REVIEW 05/01/2019 SI:ACUTE UTI. T 97.6 HR 91 RR 18 B/P 146/77 SATS 100% ON RA NO LABS TODAY IS: IVF @ 75 mL/HR NORVASC PO BID BACLOFEN PO TID MED/SURG STATUS PLAN OF CARE: DC PLANNING
--- NOTE | 2019-05-01 12:33 | NUR ---
INSURANCE REVIEWS FAXED TO [facility] #[phone] FAX#[phone]
--- NOTE | 2019-05-01 13:38 | NUR ---
NURSE NOTES: IV site placed in the right foot, fluids running as prescribed.
[2019-05-01 16:00] VITALS: BP 128/68
--- NOTE | 2019-05-01 19:13 | Surgery Progress Note ---
Surgery Progress Note Subjective Additional Comments no acute events Objective Last 24 Hour Vital Signs Date Time Temp Pulse Resp B/P (MAP) Pulse Ox O2 Delivery O2 Flow Rate FiO2 05/01/19 18:16 99 128/68 05/01/19 16:00 97.7 99 18 128/68 (88) 100 05/01/19 12:00 98.6 105 19 136/68 (90) 99 05/01/19 09:12 91 146/77 05/01/19 09:00 Room Air 05/01/19 08:00 97.6 91 18 146/77 (100) 100 05/01/19 04:00 98.8 97 18 111/80 (90) 100 05/01/19 00:00 98.6 101 18 150/81 (104) 98 04/30/19 21:00 Room Air 04/30/19 20:00 98.7 99 18 103/70 (81) 99 I&O Intake and Output 04/30/19 05/01/19 19:00 07:00 Intake Total 475 ml 1035 ml Output Total 2000 ml 500 ml Balance -1525 ml 535 ml Intake Oral 400 ml 360 ml IV Total 75 ml 675 ml Output Urine Total 2000 ml 500 ml # Bowel Movements 2 Dressing: saturated Wound: other Drains: other Cardiovascular: RSR Respiratory: decreased breath sounds Abdomen: soft, present bowel sounds Extremities: no cyanosis, other Plan Problems: (1) Sacral decubitus ulcer, stage IV Assessment & Plan: PT presented on admission in grossly unkempt state with multiple pressure injuries. Full thickness stage 4 pressure injury sacrococcygeal area(L)4cm x (W)2.5cm x (D)0.7cm. Biofilm at base of wound and bone is palpable. Additionally, surrounding areas of wound encompassing R and L buttocks and extending into both ischial regions are erythematous -moist with scattered areas of slough and scattered pink epithelial (L)14.5cm x (W)11cm. Full thickness pressure injury R buttocks with 80% slough (L)1.5cm x (W)1cm. Full thickness pressure injury R ischium . Base of wound has 100% slough. (L) (L )2.4cm x (W)3.5cm. Borders and surrounding areas are moist and viable. Tender when minimally palpated. Full thickness pressure injury lateral L tibia .base of wound with mixed eschar and slough . No odor noted .Small amt seropurulent exudate. periwound has darker skin tone with dry, scaly skin.(L)5cm x (W)2cm. Full thickness ulcer lateral L foot . Base of wound 50% viable ,50% slough.Borders are macerated. Periwound dry and flaky without erythema or fluctuance. Tx.Plan. Cleanse sacrococcygeal wound with saline. Apply Therahoney . Apply Moisture Barrier Paste to surrounding buttocks Cover with Optifoam drsg Daily and prn. Cleanse Wound R buttocks with saline. Apply Therahoney. Apply Moisture Barrier periwound. Cover with Optifoam Daily and prn. Cleanse R ischial wound with saline.Apply Therahoney. Apply Moisture Barrier periwound .Cover with Optifoam drsg Daily and prn. Apply Cavilon Skin Barrier to both heels. Cover each heel with Optifoam drsg. Change every 7 days and prn. APM/DESTIN Mattress. Reposition at least every 2hours or as tolerated. Off-load heels with pillow. cont with above care orders upon discharge (2) Abdominal pain Assessment & Plan: leukocytosis resolved abd discomfort resolved KUB with Findings: Severe fecal retention is noted. There is no evidence of abnormal gaseous distention of small bowel loops to suggest small bowel obstruction. Bones are demineralized. Degenerative and chronic changes are noted in the spine and bilateral hips. No acute osseous abnormality.Impression: Findings suggestive of marked rectal fecal retention/impaction. diet as tolerated d/c planning from surgical standpoint will follow with recs thank you Niels Carroll May 01, 2019 19:13
--- NOTE | 2019-05-01 19:19 | NUR ---
HAND-OFF: Report given to YOLANDA LOPEZ.
--- NOTE | 2019-05-01 19:30 | NUR ---
NURSE NOTES: Received report from YOLANDA Sim. Patient alert, awake, oriented, and verbally responsive to let her needs known. Speech is slightly garbled and soft. Need repetition to understand clearly. Breathing unlabored without distress, discomfort, or sob. Denies pain at this time. IV on right food running fluid as ordered. Ok to start IV on the lower extremities order active on EMR. Suprapubic cath noted. Bed placed at the lowest with alarm, brakes, and side rails up for safety. Call light placed within reach and encourage to use whenever assistance is needed. Will continue to monitor and provide care as needed.
[2019-05-01 20:00] VITALS: BP 137/69
--- NOTE | 2019-05-01 21:17 | NUR ---
NURSE NOTES: Reached Dr. Dunn to inform that patient is experiencing sore and aching generalized pain throughout the body ranging 7-8/10. Dr. Llamas received the call and gave order for tylenol 650mg Q 6hrs for mild and moderate pain. Also informed Dr. Llamas about the patient's elevated heart rate of 106. aware and no new orders given. Will carry out the orders as given and continue to monitor patient.
--- NOTE | 2019-05-01 21:45 | Progress Note ---
DATE: 05/01/2019 SUBJECTIVE: The patient was sitting in bed, has disoriented to date. She knows she is in the hospital, poor historian. She was agitated earlier per nurse however manageable. The patient is compliant with medications. MENTAL STATUS EXAMINATION: Alert and oriented times self and place. Mood is neutral to anxious. Affect is flat. Thought process is concrete. Thought content, no suicidal or homicidal ideation. ASSESSMENT: The patient lacks capacity to make decisions. PLAN: 1. The patient will be continued on current medication. 2. Provide the patient with reality orientation and supportive therapy. Christie Byrd M.D. DR: Kelsey JOB#: [id number] CC: GARY
[2019-05-02] VITALS: BP 118/58
--- NOTE | 2019-05-02 02:27 | NUR ---
NURSE NOTES: Provided wound dressing change on sacral, right and left buttock, left foot, and left tibial as ordered. Bilateral heels protected with optifoam. Patient explained the procedure before and during the process. Patient tolerated the procedure well. Will continue to monitor and provide care as ordered.
[2019-05-02 04:00] VITALS: BP 143/76
--- NOTE | 2019-05-02 07:05 | NUR ---
NURSE NOTES: HANDOFF RECEIVED FROM MINSU,RN. PATIENT RECEIVED AWAKE AND ALERT, RESTING IN BED. NO VISIBLE SIGNS OF DISTRESS, ON ROOM AIR. PATIENT HAS IV SITE IN THE RIGHT FOOT RUNNING PRESCRIBED FLUIDS. IV SITE IS CLEAN AND DRY, WITH NO SIGNS OF EDEMA OR TENDERNESS NOTED. PATIENT HAS SUPRAPUBLIC CATHETER PATENT AND DRAINING YELLOW URINE. PATIENT HAS PHONE AND CALL LIGHT WITHIN REACH, BED IN THE LOCKED AND LOW POSITION. WILL CONTINUE TO MONITOR.
--- NOTE | 2019-05-02 07:27 | NUR ---
HAND-OFF: Report given to YOLANDA Sim.
[2019-05-02 08:00] VITALS: BP 142/72
[2019-05-02] MEDS: Heparin 5000 units/ml inj SUBQ SCH ×2 (08:47→20:54)
[2019-05-02] MEDS: Vitamin D 1000 IU Tab ORAL SCH (08:48)
[2019-05-02] MEDS: Bisacodyl EC 5mg tab ORAL SCH (08:49)
--- NOTE | 2019-05-02 09:08 | Urology Progress Note ---
Assessment/Plan Assessment/Plan: 1. Urinary retention with chronic suprapubic tube. 2. Neurogenic bladder. 3. Pyuria and probable colonized urine with possible UTI. 4. Hematuria. 5. Proteinuria. keep SP tube last replaced 04/18 hand irrigated and do PRN position is satisfactory s/p abx consider renal imaging study cysto later Subjective Allergies: Coded Allergies: CEPHALEXIN (Verified Allergy, Unknown, 11/19/09) HYDROMORPHONE (Unverified Allergy, Unknown, 12/27/18) INTERFERON BETA-1B (Verified Allergy, Unknown, 11/01/12) COULDN'T WALK AFTER TAKING MEDICATION NITROFURANTOIN (Verified Allergy, Unknown, 11/19/09) SULFA (SULFONAMIDE ANTIBIOTICS) (Unverified Allergy, Unknown, 12/27/18) SULFAMETHOXAZOLE (Verified Allergy, Unknown, 11/19/09) TRIMETHOPRIM (Verified Allergy, Unknown, 11/19/09) Uncoded Allergies: COTRIM (Allergy, Unknown, 12/27/18) Subjective all noted, SP tube draining OK Objective Last 24 Hour Vital Signs Date Time Temp Pulse Resp B/P (MAP) Pulse Ox O2 Delivery O2 Flow Rate FiO2 05/02/19 08:49 94 142/72 05/02/19 08:00 97.7 94 16 142/72 (95) 98 05/02/19 04:00 97.8 84 19 143/76 (98) 97 05/02/19 00:00 98.2 87 19 118/58 (78) 95 05/01/19 21:00 Room Air 05/01/19 20:00 98.9 106 19 137/69 (91) 97 05/01/19 18:16 99 128/68 05/01/19 16:00 97.7 99 18 128/68 (88) 100 05/01/19 12:00 98.6 105 19 136/68 (90) 99 05/01/19 09:12 91 146/77 Intake and Output 05/01/19 05/02/19 19:00 07:00 Intake Total 775 ml 2025 ml Output Total 1000 ml 1100 ml Balance -225 ml 925 ml Intake Oral 700 ml 300 ml IV Total 75 ml 825 ml Other 900 ml Output Urine Total 1000 ml 1100 ml # Voids 1 # Bowel Movements 1 1 Microbiology Date/Time Source Procedure Growth Status 04/17/19 14:37 Urine,Clean Catch Urine Culture - Final Escherichia Coli Complete Current Medications Medications (Trade) Dose Ordered Sig/Fransisca Route PRN Reason Start Time Stop Time Status Last Admin Dose Admin Acetaminophen (Tylenol) 650 mg Q6H PRN ORAL pain 1-6 05/01/19 21:30 05/31/19 21:29 05/02/19 08:52 Amlodipine Besylate (Norvasc) 5 mg BID ORAL 04/26/19 18:00 05/17/19 17:59 05/02/19 08:49 Baclofen (Lioresal) 10 mg THREE TIMES A DAY ORAL 04/26/19 18:00 05/17/19 17:59 05/02/19 08:48 Bisacodyl (Dulcolax) 5 mg DAILY ORAL 04/27/19 09:00 05/18/19 08:59 05/01/19 09:12 Diphenhydramine HCl (Benadryl) 25 mg Q8H PRN ORAL Itching 04/26/19 15:00 05/25/19 14:59 04/29/19 09:35 Heparin Sodium (Porcine) (Heparin 5000 units/ml) 5,000 units EVERY 12 HOURS SUBQ 04/26/19 21:00 05/19/19 20:59 05/02/19 08:47 Multivitamins (Multivitamins) 1 tab DAILY ORAL 04/27/19 09:00 05/18/19 08:59 05/02/19 08:48 Sodium Chloride 1,000 ml @ 75 mls/hr [id number] IV 04/26/19 15:00 05/19/19 17:59 05/01/19 21:30 Vitamin D (Vitamin D) 1,000 intlu DAILY ORAL 04/27/19 09:00 05/18/19 08:59 05/02/19 08:48 Height (Feet): 5 Height (Inches): 3.00 Weight (Pounds): 153 Objective exam stable SP tube in place, urine yellow with some debris Jah Syed MD May 02, 2019 09:08
[2019-05-02 12:00] VITALS: BP 133/69
--- NOTE | 2019-05-02 12:31 | Surgery Progress Note ---
Surgery Progress Note Subjective Symptoms: improved Objective Last 24 Hour Vital Signs Date Time Temp Pulse Resp B/P (MAP) Pulse Ox O2 Delivery O2 Flow Rate FiO2 05/02/19 12:00 97.9 101 20 133/69 (90) 98 05/02/19 09:00 Room Air 05/02/19 08:49 94 142/72 05/02/19 08:00 97.7 94 16 142/72 (95) 98 05/02/19 04:00 97.8 84 19 143/76 (98) 97 05/02/19 00:00 98.2 87 19 118/58 (78) 95 05/01/19 21:00 Room Air 05/01/19 20:00 98.9 106 19 137/69 (91) 97 05/01/19 18:16 99 128/68 05/01/19 16:00 97.7 99 18 128/68 (88) 100 I&O Intake and Output 05/01/19 05/02/19 18:59 06:59 Intake Total 700 ml 2100 ml Output Total 1000 ml 1100 ml Balance -300 ml 1000 ml Intake Oral 700 ml 300 ml IV Total 900 ml Other 900 ml Output Urine Total 1000 ml 1100 ml # Voids 1 # Bowel Movements 1 1 Dressing: saturated Wound: other Drains: other Cardiovascular: RSR Respiratory: clear Abdomen: soft, flat, non-tender, present bowel sounds Extremities: no cyanosis Plan Problems: (1) Sacral decubitus ulcer, stage IV Assessment & Plan: PT presented on admission in grossly unkempt state with multiple pressure injuries. Full thickness stage 4 pressure injury sacrococcygeal area(L)4cm x (W)2.5cm x (D)0.7cm. Biofilm at base of wound and bone is palpable. Additionally, surrounding areas of wound encompassing R and L buttocks and extending into both ischial regions are erythematous -moist with scattered areas of slough and scattered pink epithelial (L)14.5cm x (W)11cm. Full thickness pressure injury R buttocks with 80% slough (L)1.5cm x (W)1cm. Full thickness pressure injury R ischium . Base of wound has 100% slough. (L) (L )2.4cm x (W)3.5cm. Borders and surrounding areas are moist and viable. Tender when minimally palpated. Full thickness pressure injury lateral L tibia .base of wound with mixed eschar and slough . No odor noted .Small amt seropurulent exudate. periwound has darker skin tone with dry, scaly skin.(L)5cm x (W)2cm. Full thickness ulcer lateral L foot . Base of wound 50% viable ,50% slough.Borders are macerated. Periwound dry and flaky without erythema or fluctuance. Tx.Plan. Cleanse sacrococcygeal wound with saline. Apply Therahoney . Apply Moisture Barrier Paste to surrounding buttocks Cover with Optifoam drsg Daily and prn. Cleanse Wound R buttocks with saline. Apply Therahoney. Apply Moisture Barrier periwound. Cover with Optifoam Daily and prn. Cleanse R ischial wound with saline.Apply Therahoney. Apply Moisture Barrier periwound .Cover with Optifoam drsg Daily and prn. Apply Cavilon Skin Barrier to both heels. Cover each heel with Optifoam drsg. Change every 7 days and prn. APM/DESTIN Mattress. Reposition at least every 2hours or as tolerated. Off-load heels with pillow. cont with above care orders upon discharge (2) Abdominal pain Assessment & Plan: leukocytosis resolved abd discomfort resolved KUB with Findings: Severe fecal retention is noted. There is no evidence of abnormal gaseous distention of small bowel loops to suggest small bowel obstruction. Bones are demineralized. Degenerative and chronic changes are noted in the spine and bilateral hips. No acute osseous abnormality.Impression: Findings suggestive of marked rectal fecal retention/impaction. diet as tolerated d/c planning from surgical standpoint will follow with recs thank you Niels Carroll May 02, 2019 12:30
[2019-05-02 16:00] VITALS: BP 130/72
--- NOTE | 2019-05-02 19:39 | NUR ---
HAND-OFF: Report given to YOLANDA CALLAWAY.
--- NOTE | 2019-05-02 19:45 | NUR ---
NURSE NOTES: Received report from YOLANDA Sim. Patient A&Ox4. On room air, no signs of distress or labored breathing. Currently no IV. Will attempt. Bed in lowest position with call light in reach. Will continue with plan of care.
[2019-05-02 20:00] VITALS: BP 149/72
--- NOTE | 2019-05-02 20:38 | Pulmonology Progress Note ---
Assessment/Plan Assessment/Plan Urinary tract infection E coli hypertension MS, severe multiple wounds SPC Off Abx Wound care Surgery recs F/U recs, SPC care DVT Px: Hep SQ PT/OT check labs in am replace IV Dispo planning --> SW eval noted and appreciated. Per APS pt unable to return home, conservatorship in progress. No capacity per psych Subjective Constitutional: Reports: no symptoms HEENT: Repors: no symptoms Respiratory: Reports: no symptoms Cardiovascular: Reports: no symptoms Allergies: Coded Allergies: CEPHALEXIN (Verified Allergy, Unknown, 11/19/09) HYDROMORPHONE (Unverified Allergy, Unknown, 12/27/18) INTERFERON BETA-1B (Verified Allergy, Unknown, 11/01/12) COULDN'T WALK AFTER TAKING MEDICATION NITROFURANTOIN (Verified Allergy, Unknown, 11/19/09) SULFA (SULFONAMIDE ANTIBIOTICS) (Unverified Allergy, Unknown, 12/27/18) SULFAMETHOXAZOLE (Verified Allergy, Unknown, 11/19/09) TRIMETHOPRIM (Verified Allergy, Unknown, 11/19/09) Uncoded Allergies: COTRIM (Allergy, Unknown, 12/27/18) Subjective better no cp nv or bleeding not getting oob on ra tolerating po lost Iv access pt will allow us to try to replace ivf on hold no labs since 04/26 Objective Last 24 Hour Vital Signs Date Time Temp Pulse Resp B/P (MAP) Pulse Ox O2 Delivery O2 Flow Rate FiO2 05/02/19 17:29 97 130/72 05/02/19 16:00 97.2 97 21 130/72 (91) 98 05/02/19 12:00 97.9 101 20 133/69 (90) 98 05/02/19 09:00 Room Air 05/02/19 08:49 94 142/72 05/02/19 08:00 97.7 94 16 142/72 (95) 98 05/02/19 04:00 97.8 84 19 143/76 (98) 97 05/02/19 00:00 98.2 87 19 118/58 (78) 95 05/01/19 21:00 Room Air Intake and Output 05/01/19 05/02/19 19:00 07:00 Intake Total 775 ml 2025 ml Output Total 1000 ml 1100 ml Balance -225 ml 925 ml Intake Oral 700 ml 300 ml IV Total 75 ml 825 ml Other 900 ml Output Urine Total 1000 ml 1100 ml # Voids 1 # Bowel Movements 1 1 General Appearance: WD/WN HEENT: atraumatic, anicteric Respiratory/Chest: lungs clear, normal breath sounds Cardiovascular: normal rate, regularly irregular Abdomen: soft, non tender, no organomegaly Extremities: no cyanosis Skin: lesions Neurologic/Psychiatric: alert Current Medications Medications (Trade) Dose Ordered Sig/Fransisca Route PRN Reason Start Time Stop Time Status Last Admin Dose Admin Acetaminophen (Tylenol) 650 mg Q6H PRN ORAL pain 1-6 05/01/19 21:30 05/31/19 21:29 05/02/19 08:52 Amlodipine Besylate (Norvasc) 5 mg BID ORAL 04/26/19 18:00 05/17/19 17:59 05/02/19 17:29 Baclofen (Lioresal) 10 mg THREE TIMES A DAY ORAL 04/26/19 18:00 05/17/19 17:59 05/02/19 17:29 Bisacodyl (Dulcolax) 5 mg DAILY ORAL 04/27/19 09:00 05/18/19 08:59 05/01/19 09:12 Diphenhydramine HCl (Benadryl) 25 mg Q8H PRN ORAL Itching 04/26/19 15:00 05/25/19 14:59 04/29/19 09:35 Heparin Sodium (Porcine) (Heparin 5000 units/ml) 5,000 units EVERY 12 HOURS SUBQ 04/26/19 21:00 05/19/19 20:59 05/02/19 08:47 Multivitamins (Multivitamins) 1 tab DAILY ORAL 04/27/19 09:00 05/18/19 08:59 05/02/19 08:48 Sodium Chloride 1,000 ml @ 75 mls/hr [id number] IV 04/26/19 15:00 05/19/19 17:59 05/02/19 16:53 Vitamin D (Vitamin D) 1,000 intlu DAILY ORAL 04/27/19 09:00 05/18/19 08:59 05/02/19 08:48 Judie Llamas DO May 02, 2019 20:38
[2019-05-03] VITALS: BP 125/70
[2019-05-03 04:00] VITALS: BP 154/80
--- NOTE | 2019-05-03 07:30 | NUR ---
NURSE NOTES: Report received from Emily GUERRERO. Patient in bed awake and alertx4. No c/o pain at this time. Bed in lowest position and locked. Call light within reach. IV LAUREN 20G running with IV NS TKO patent and asymptomatic. No acte distress noted. Bed in lowest position and locked. patient c/o stomach upset, per patient he needs fleet enema for the stomach upset. Will follow up with PCP for enema today. Will continue to plan of care. Addendum: 05/03/19 at 0743 by Sree Jeffers RN NURSE NOTES: Report received from Emily GUERRERO. Patient in bed awake and alertx4. No c/o pain at this time. Bed in lowest position and locked. Call light within reach. IV R wrist 22G running with IV NS 75ml/hr patent and asymptomatic. Patient on suprapubic cath patent and intact. No acte distress noted. Bed in lowest position and locked. Will continue to plan of care.
--- NOTE | 2019-05-03 07:30 | NUR ---
HAND-OFF: Report given to Matthias Mc RN.
[2019-05-03 07:52] LABS: BASOPHILS % (AUTO) 0.4 % (0.0-2.0); HEMOGLOBIN 9.3 G/DL (12.0-16.0); LYMPHOCYTES % (AUTO) 31.5 % (20.0-45.0); MEAN CORPUSCULAR VOLUME 82 FL (80-99); MONOCYTES % (AUTO) 4.9 % (1.0-10.0); NEUTROPHILS % (AUTO) 58.2 % (45.0-75.0); PLATELET COUNT 551 K/UL (150-450); RED BLOOD COUNT 3.66 M/UL (4.20-5.40); RED CELL DISTRIBUTION WIDTH 19.6 % (11.6-14.8)
[2019-05-03 08:00] VITALS: BP 144/99
[2019-05-03] MEDS: Bisacodyl EC 5mg tab ORAL SCH (08:37)
[2019-05-03] MEDS: Vitamin D 1000 IU Tab ORAL SCH (08:37)
[2019-05-03] MEDS: Heparin 5000 units/ml inj SUBQ SCH ×2 (08:38→20:26)
[2019-05-03 08:43] LABS: ANION GAP 10 mmol/L (5-15); BLOOD UREA NITROGEN 13 mg/dL (7-18); CALCIUM 9.2 MG/DL (8.5-10.1); CARBON DIOXIDE 25 MMOL/L (21-32); CHLORIDE 107 MMOL/L (98-107); CREATININE 0.5 MG/DL (0.55-1.30); POTASSIUM 3.8 MMOL/L (3.5-5.1); SODIUM 141 MMOL/L (136-145)
--- NOTE | 2019-05-03 09:23 | Urology Progress Note ---
Assessment/Plan Assessment/Plan: 1. Urinary retention with chronic suprapubic tube. 2. Neurogenic bladder. 3. Pyuria and probable colonized urine with possible UTI. 4. Hematuria. 5. Proteinuria. keep SP tube last replaced 04/18 hand irrigated and do PRN position is satisfactory s/p abx consider renal imaging study cysto later Subjective Allergies: Coded Allergies: CEPHALEXIN (Verified Allergy, Unknown, 11/19/09) HYDROMORPHONE (Unverified Allergy, Unknown, 12/27/18) INTERFERON BETA-1B (Verified Allergy, Unknown, 11/01/12) COULDN'T WALK AFTER TAKING MEDICATION NITROFURANTOIN (Verified Allergy, Unknown, 11/19/09) SULFA (SULFONAMIDE ANTIBIOTICS) (Unverified Allergy, Unknown, 12/27/18) SULFAMETHOXAZOLE (Verified Allergy, Unknown, 11/19/09) TRIMETHOPRIM (Verified Allergy, Unknown, 11/19/09) Uncoded Allergies: COTRIM (Allergy, Unknown, 12/27/18) Subjective all noted, SP tube draining OK Objective Last 24 Hour Vital Signs Date Time Temp Pulse Resp B/P (MAP) Pulse Ox O2 Delivery O2 Flow Rate FiO2 05/03/19 08:38 101 144/99 05/03/19 08:00 98.3 101 17 144/99 (114) 99 05/03/19 04:00 97.5 101 19 154/80 (104) 95 05/03/19 00:00 97.9 97 19 125/70 (88) 98 05/02/19 21:00 Room Air 05/02/19 20:00 98.7 101 19 149/72 (97) 96 05/02/19 17:29 97 130/72 05/02/19 16:00 97.2 97 21 130/72 (91) 98 05/02/19 12:00 97.9 101 20 133/69 (90) 98 Intake and Output 05/02/19 05/03/19 19:00 07:00 Intake Total 800 ml 2775 ml Output Total 601 ml 1702 ml Balance 199 ml 1073 ml Intake Oral 600 ml IV Total 575 ml Other 800 ml 1600 ml Output Urine Total 600 ml 1700 ml Stool Total 1 ml 2 ml # Voids 2 # Bowel Movements 2 Microbiology Date/Time Source Procedure Growth Status 04/17/19 14:37 Urine,Clean Catch Urine Culture - Final Escherichia Coli Complete Current Medications Medications (Trade) Dose Ordered Sig/Fransisca Route PRN Reason Start Time Stop Time Status Last Admin Dose Admin Acetaminophen (Tylenol) 650 mg Q6H PRN ORAL pain 1-6 05/01/19 21:30 05/31/19 21:29 05/02/19 08:52 Amlodipine Besylate (Norvasc) 5 mg BID ORAL 04/26/19 18:00 05/17/19 17:59 05/03/19 08:38 Baclofen (Lioresal) 10 mg THREE TIMES A DAY ORAL 04/26/19 18:00 05/17/19 17:59 05/03/19 08:37 Bisacodyl (Dulcolax) 5 mg DAILY ORAL 04/27/19 09:00 05/18/19 08:59 05/03/19 08:37 Diphenhydramine HCl (Benadryl) 25 mg Q8H PRN ORAL Itching 04/26/19 15:00 05/25/19 14:59 04/29/19 09:35 Heparin Sodium (Porcine) (Heparin 5000 units/ml) 5,000 units EVERY 12 HOURS SUBQ 04/26/19 21:00 05/19/19 20:59 05/03/19 08:38 Multivitamins (Multivitamins) 1 tab DAILY ORAL 04/27/19 09:00 05/18/19 08:59 05/03/19 08:37 Sodium Chloride 1,000 ml @ 75 mls/hr [id number] IV 04/26/19 15:00 05/19/19 17:59 05/03/19 06:45 Vitamin D (Vitamin D) 1,000 intlu DAILY ORAL 04/27/19 09:00 05/18/19 08:59 05/03/19 08:37 Laboratory Tests 05/03/19 06:05: White Blood Count 10.0, Red Blood Count 3.66L, Hemoglobin 9.3L, Hematocrit 30.0L , Mean Corpuscular Volume 82, Mean Corpuscular Hemoglobin 25.5L, Mean Corpuscular Hemoglobin Concent 31.2L, Red Cell Distribution Width 19.6H, Platelet Count 551H, Mean Platelet Volume 5.2L, Neutrophils (%) (Auto) 58.2, Lymphocytes (%) (Auto) 31.5, Monocytes (%) (Auto) 4.9, Eosinophils (%) (Auto) 5.0H, Basophils (%) (Auto) 0.4 05/03/19 06:48: Sodium Level 141, Potassium Level 3.8, Chloride Level 107, Carbon Dioxide Level 25, Anion Gap 10, Blood Urea Nitrogen 13, Creatinine 0.5L, Estimat Glomerular Filtration Rate > 60, Glucose Level 73L, Calcium Level 9.2, Magnesium Level 1.8 Height (Feet): 5 Height (Inches): 3.00 Weight (Pounds): 153 Objective exam stable SP tube in place, urine yellow with some debris Jah Syed MD May 03, 2019 09:23
[2019-05-03 11:25] VITALS: BP 155/85
[2019-05-03] MEDS: Nystatin Powder 100,000 units/gm 15gm TOPIC SCH ×2 (13:55→20:23)
--- NOTE | 2019-05-03 14:07 | Surgery Progress Note ---
Surgery Progress Note Subjective Symptoms: improved, tolerating diet, voiding well, passing flatus, BM Objective Last 24 Hour Vital Signs Date Time Temp Pulse Resp B/P (MAP) Pulse Ox O2 Delivery O2 Flow Rate FiO2 05/03/19 11:25 99.0 98 16 155/85 (108) 99 05/03/19 09:00 Room Air 05/03/19 08:38 101 144/99 05/03/19 08:00 98.3 101 17 144/99 (114) 99 05/03/19 04:00 97.5 101 19 154/80 (104) 95 05/03/19 00:00 97.9 97 19 125/70 (88) 98 05/02/19 21:00 Room Air 05/02/19 20:00 98.7 101 19 149/72 (97) 96 05/02/19 17:29 97 130/72 05/02/19 16:00 97.2 97 21 130/72 (91) 98 I&O Intake and Output 05/02/19 05/03/19 18:59 06:59 Intake Total 800 ml 2775 ml Output Total 601 ml 1702 ml Balance 199 ml 1073 ml Intake Oral 600 ml IV Total 575 ml Other 800 ml 1600 ml Output Urine Total 600 ml 1700 ml Stool Total 1 ml 2 ml # Voids 2 # Bowel Movements 2 Dressing: saturated Wound: other Drains: other Cardiovascular: RSR Respiratory: clear Abdomen: soft, present bowel sounds, non-distended Extremities: no cyanosis, other Laboratory Tests Test 05/03/19 06:05 05/03/19 06:48 White Blood Count 10.0 K/UL (4.8-10.8) Red Blood Count 3.66 M/UL (4.20-5.40) L Hemoglobin 9.3 G/DL (12.0-16.0) L Hematocrit 30.0 % (37.0-47.0) L Mean Corpuscular Volume 82 FL (80-99) Mean Corpuscular Hemoglobin 25.5 PG (27.0-31.0) L Mean Corpuscular Hemoglobin Concent 31.2 G/DL (32.0-36.0) L Red Cell Distribution Width 19.6 % (11.6-14.8) H Platelet Count 551 K/UL (150-450) H Mean Platelet Volume 5.2 FL (6.5-10.1) L Neutrophils (%) (Auto) 58.2 % (45.0-75.0) Lymphocytes (%) (Auto) 31.5 % (20.0-45.0) Monocytes (%) (Auto) 4.9 % (1.0-10.0) Eosinophils (%) (Auto) 5.0 % (0.0-3.0) H Basophils (%) (Auto) 0.4 % (0.0-2.0) Sodium Level 141 MMOL/L (136-145) Potassium Level 3.8 MMOL/L (3.5-5.1) Chloride Level 107 MMOL/L (98-107) Carbon Dioxide Level 25 MMOL/L (21-32) Anion Gap 10 mmol/L (5-15) Blood Urea Nitrogen 13 mg/dL (7-18) Creatinine 0.5 MG/DL (0.55-1.30) L Estimat Glomerular Filtration Rate > 60 mL/min (>60) Glucose Level 73 MG/DL (74-106) L Calcium Level 9.2 MG/DL (8.5-10.1) Magnesium Level 1.8 MG/DL (1.8-2.4) Plan Problems: (1) Sacral decubitus ulcer, stage IV Assessment & Plan: PT presented on admission in grossly unkempt state with multiple pressure injuries. Full thickness stage 4 pressure injury sacrococcygeal area(L)4cm x (W)2.5cm x (D)0.7cm. Biofilm at base of wound and bone is palpable. Additionally, surrounding areas of wound encompassing R and L buttocks and extending into both ischial regions are erythematous -moist with scattered areas of slough and scattered pink epithelial (L)14.5cm x (W)11cm. Full thickness pressure injury R buttocks with 80% slough (L)1.5cm x (W)1cm. Full thickness pressure injury R ischium . Base of wound has 100% slough. (L) (L )2.4cm x (W)3.5cm. Borders and surrounding areas are moist and viable. Tender when minimally palpated. Full thickness pressure injury lateral L tibia .base of wound with mixed eschar and slough . No odor noted .Small amt seropurulent exudate. periwound has darker skin tone with dry, scaly skin.(L)5cm x (W)2cm. Full thickness ulcer lateral L foot . Base of wound 50% viable ,50% slough.Borders are macerated. Periwound dry and flaky without erythema or fluctuance. Tx.Plan. Cleanse sacrococcygeal wound with saline. Apply Therahoney . Apply Moisture Barrier Paste to surrounding buttocks Cover with Optifoam drsg Daily and prn. Cleanse Wound R buttocks with saline. Apply Therahoney. Apply Moisture Barrier periwound. Cover with Optifoam Daily and prn. Cleanse R ischial wound with saline.Apply Therahoney. Apply Moisture Barrier periwound .Cover with Optifoam drsg Daily and prn. Apply Cavilon Skin Barrier to both heels. Cover each heel with Optifoam drsg. Change every 7 days and prn. APM/DESTIN Mattress. Reposition at least every 2hours or as tolerated. Off-load heels with pillow. cont with above care orders upon discharge (2) Abdominal pain Assessment & Plan: leukocytosis resolved abd discomfort resolved KUB with Findings: Severe fecal retention is noted. There is no evidence of abnormal gaseous distention of small bowel loops to suggest small bowel obstruction. Bones are demineralized. Degenerative and chronic changes are noted in the spine and bilateral hips. No acute osseous abnormality.Impression: Findings suggestive of marked rectal fecal retention/impaction. diet as tolerated d/c planning from surgical standpoint will follow with recs thank you Niels Carroll May 03, 2019 14:07
[2019-05-03 15:58] VITALS: BP 146/87
[2019-05-03] MEDS ORDERED: NS Irrig 1000ml ONE (16:02)
--- NOTE | 2019-05-03 18:54 | Pulmonology Progress Note ---
Assessment/Plan Assessment/Plan Urinary tract infection E coli hypertension MS, severe multiple wounds SPC Off Abx Wound care Surgery recs F/U recs, SPC care DVT Px: Hep SQ PT/OT check labs in am replace IV Dispo planning --> SW eval noted and appreciated. Per APS pt unable to return home, conservatorship in progress. No capacity per psych Subjective ROS Limited/Unobtainable: Yes Allergies: Coded Allergies: CEPHALEXIN (Verified Allergy, Unknown, 11/19/09) HYDROMORPHONE (Unverified Allergy, Unknown, 12/27/18) INTERFERON BETA-1B (Verified Allergy, Unknown, 11/01/12) COULDN'T WALK AFTER TAKING MEDICATION NITROFURANTOIN (Verified Allergy, Unknown, 11/19/09) SULFA (SULFONAMIDE ANTIBIOTICS) (Unverified Allergy, Unknown, 12/27/18) SULFAMETHOXAZOLE (Verified Allergy, Unknown, 11/19/09) TRIMETHOPRIM (Verified Allergy, Unknown, 11/19/09) Uncoded Allergies: COTRIM (Allergy, Unknown, 12/27/18) Subjective better no cp nv or bleeding not getting oob on ra tolerating po l;abs reviewed Objective Last 24 Hour Vital Signs Date Time Temp Pulse Resp B/P (MAP) Pulse Ox O2 Delivery O2 Flow Rate FiO2 05/03/19 17:01 101 146/87 05/03/19 15:58 98.1 101 19 146/87 (106) 97 05/03/19 11:25 99.0 98 16 155/85 (108) 99 05/03/19 09:00 Room Air 05/03/19 08:38 101 144/99 05/03/19 08:00 98.3 101 17 144/99 (114) 99 05/03/19 04:00 97.5 101 19 154/80 (104) 95 05/03/19 00:00 97.9 97 19 125/70 (88) 98 05/02/19 21:00 Room Air 05/02/19 20:00 98.7 101 19 149/72 (97) 96 Intake and Output 05/02/19 05/03/19 18:59 06:59 Intake Total 800 ml 2775 ml Output Total 601 ml 1702 ml Balance 199 ml 1073 ml Intake Oral 600 ml IV Total 575 ml Other 800 ml 1600 ml Output Urine Total 600 ml 1700 ml Stool Total 1 ml 2 ml # Voids 2 # Bowel Movements 2 General Appearance: WD/WN Respiratory/Chest: lungs clear Cardiovascular: normal rate Abdomen: soft, non tender, non distended Skin: lesions Neurologic/Psychiatric: alert, responsive Laboratory Tests 05/03/19 06:05: White Blood Count 10.0, Red Blood Count 3.66L, Hemoglobin 9.3L, Hematocrit 30.0L , Mean Corpuscular Volume 82, Mean Corpuscular Hemoglobin 25.5L, Mean Corpuscular Hemoglobin Concent 31.2L, Red Cell Distribution Width 19.6H, Platelet Count 551H, Mean Platelet Volume 5.2L, Neutrophils (%) (Auto) 58.2, Lymphocytes (%) (Auto) 31.5, Monocytes (%) (Auto) 4.9, Eosinophils (%) (Auto) 5.0H, Basophils (%) (Auto) 0.4 05/03/19 06:48: Sodium Level 141, Potassium Level 3.8, Chloride Level 107, Carbon Dioxide Level 25, Anion Gap 10, Blood Urea Nitrogen 13, Creatinine 0.5L, Estimat Glomerular Filtration Rate > 60, Glucose Level 73L, Calcium Level 9.2, Magnesium Level 1.8 Current Medications Medications (Trade) Dose Ordered Sig/Fransisca Route PRN Reason Start Time Stop Time Status Last Admin Dose Admin Acetaminophen (Tylenol) 650 mg Q6H PRN ORAL pain 1-6 05/01/19 21:30 05/31/19 21:29 05/02/19 08:52 Amlodipine Besylate (Norvasc) 5 mg BID ORAL 04/26/19 18:00 05/17/19 17:59 05/03/19 17:01 Baclofen (Lioresal) 10 mg THREE TIMES A DAY ORAL 04/26/19 18:00 05/17/19 17:59 05/03/19 17:02 Bisacodyl (Dulcolax) 5 mg DAILY ORAL 04/27/19 09:00 05/18/19 08:59 05/03/19 08:37 Diphenhydramine HCl (Benadryl) 25 mg Q8H PRN ORAL Itching 04/26/19 15:00 05/25/19 14:59 04/29/19 09:35 Heparin Sodium (Porcine) (Heparin 5000 units/ml) 5,000 units EVERY 12 HOURS SUBQ 04/26/19 21:00 05/19/19 20:59 05/03/19 08:38 Multivitamins (Multivitamins) 1 tab DAILY ORAL 04/27/19 09:00 05/18/19 08:59 05/03/19 08:37 Nystatin (Nystop Powder) 1 applic BID TOPIC 05/03/19 14:00 06/02/19 13:59 05/03/19 13:55 Sodium Chloride 1,000 ml @ 75 mls/hr [id number] IV 04/26/19 15:00 05/19/19 17:59 05/03/19 06:45 Vitamin D (Vitamin D) 1,000 intlu DAILY ORAL 04/27/19 09:00 05/18/19 08:59 05/03/19 08:37 Judie Llamas DO May 03, 2019 18:54
--- NOTE | 2019-05-03 19:11 | NUR ---
HAND-OFF: Report given to Emily RN. Pt remains stable.
--- NOTE | 2019-05-03 19:20 | NUR ---
NURSE NOTES: Received report from Matthias Mc RN. Patient A&Ox4. On room air, no signs of distress or labored breathing. IV intact, patent, and infusing fluids. Suprapubic catheter intact, patent, and draining urine. Bed in lowest position with call light in reach. Will continue with plan of care.
[2019-05-03 20:00] VITALS: BP 155/84
[2019-05-04] VITALS: BP 148/80
[2019-05-04 04:00] VITALS: BP 151/82
--- NOTE | 2019-05-04 04:00 | NUR ---
HAND-OFF: Report given to YOLANDA Garcia.
--- NOTE | 2019-05-04 07:25 | NUR ---
nurse notes Received patient in bed, patient awake, alert oriented x4. On room air, no signs of distress . IV intact, patent, and infusing fluids. Suprapubic catheter intact, patent, and draining urine.on fall and aspiration precaution, Bed in lowest position with call light in reach. Will continue with plan of care. brian rubi
--- NOTE | 2019-05-04 07:30 | NUR ---
HAND-OFF: Report given to Gretta Ramos RN.
--- NOTE | 2019-05-04 07:45 | NUR ---
nurse notes Dr Graf came and changed the suprapubic cath at bedside, patient tolerated the procedure well brian rubi
--- NOTE | 2019-05-04 07:58 | Urology Progress Note ---
Assessment/Plan Assessment/Plan: 1. Urinary retention with chronic suprapubic tube. 2. Neurogenic bladder. 3. Pyuria and probable colonized urine with possible UTI. 4. Hematuria. 5. Proteinuria. keep SP tube l personally removed existing SP tube placed new 20f cath hand irrigated and do PRN position is satisfactory s/p abx consider renal imaging study cysto later Subjective Allergies: Coded Allergies: CEPHALEXIN (Verified Allergy, Unknown, 11/19/09) HYDROMORPHONE (Unverified Allergy, Unknown, 12/27/18) INTERFERON BETA-1B (Verified Allergy, Unknown, 11/01/12) COULDN'T WALK AFTER TAKING MEDICATION NITROFURANTOIN (Verified Allergy, Unknown, 11/19/09) SULFA (SULFONAMIDE ANTIBIOTICS) (Unverified Allergy, Unknown, 12/27/18) SULFAMETHOXAZOLE (Verified Allergy, Unknown, 11/19/09) TRIMETHOPRIM (Verified Allergy, Unknown, 11/19/09) Uncoded Allergies: COTRIM (Allergy, Unknown, 12/27/18) Subjective all noted, SP tube draining OK Objective Last 24 Hour Vital Signs Date Time Temp Pulse Resp B/P (MAP) Pulse Ox O2 Delivery O2 Flow Rate FiO2 05/04/19 04:00 98.0 19 151/82 (105) 96 05/04/19 00:00 96.8 84 19 148/80 (102) 97 05/03/19 21:00 Room Air 05/03/19 20:00 97.0 95 18 155/84 (107) 97 05/03/19 17:01 101 146/87 05/03/19 15:58 98.1 101 19 146/87 (106) 97 05/03/19 11:25 99.0 98 16 155/85 (108) 99 05/03/19 09:00 Room Air 05/03/19 08:38 101 144/99 05/03/19 08:00 98.3 101 17 144/99 (114) 99 Intake and Output 05/03/19 05/04/19 19:00 07:00 Intake Total 1620 ml 2120 ml Output Total 1300 ml 1901 ml Balance 320 ml 219 ml Intake Oral 720 ml 720 ml IV Total 900 ml 600 ml Other 800 ml Output Urine Total 1300 ml 1900 ml Stool Total 1 ml # Voids 5 # Bowel Movements 1 1 Microbiology Date/Time Source Procedure Growth Status 04/17/19 14:37 Urine,Clean Catch Urine Culture - Final Escherichia Coli Complete Current Medications Medications (Trade) Dose Ordered Sig/Fransisca Route PRN Reason Start Time Stop Time Status Last Admin Dose Admin Acetaminophen (Tylenol) 650 mg Q6H PRN ORAL pain 1-6 05/01/19 21:30 05/31/19 21:29 05/02/19 08:52 Amlodipine Besylate (Norvasc) 5 mg BID ORAL 04/26/19 18:00 05/17/19 17:59 05/03/19 17:01 Baclofen (Lioresal) 10 mg THREE TIMES A DAY ORAL 04/26/19 18:00 05/17/19 17:59 05/03/19 17:02 Bisacodyl (Dulcolax) 5 mg DAILY ORAL 04/27/19 09:00 05/18/19 08:59 05/03/19 08:37 Diphenhydramine HCl (Benadryl) 25 mg Q8H PRN ORAL Itching 04/26/19 15:00 05/25/19 14:59 04/29/19 09:35 Heparin Sodium (Porcine) (Heparin 5000 units/ml) 5,000 units EVERY 12 HOURS SUBQ 04/26/19 21:00 05/19/19 20:59 05/03/19 20:26 Multivitamins (Multivitamins) 1 tab DAILY ORAL 04/27/19 09:00 05/18/19 08:59 05/03/19 08:37 Nystatin (Nystop Powder) 1 applic BID TOPIC 05/03/19 14:00 06/02/19 13:59 05/03/19 20:23 Sodium Chloride 1,000 ml @ 75 mls/hr [id number] IV 04/26/19 15:00 05/19/19 17:59 05/03/19 20:23 Vitamin D (Vitamin D) 1,000 intlu DAILY ORAL 04/27/19 09:00 05/18/19 08:59 05/03/19 08:37 Height (Feet): 5 Height (Inches): 3.00 Weight (Pounds): 153 Objective exam stable SP tube in place, urine yellow with some debris Jah Syed MD May 04, 2019 07:58
[2019-05-04 08:09] VITALS: BP 120/71
[2019-05-04] MEDS: Vitamin D 1000 IU Tab ORAL SCH (08:33)
[2019-05-04] MEDS: Heparin 5000 units/ml inj SUBQ SCH ×2 (08:33→20:52)
[2019-05-04] MEDS: Bisacodyl EC 5mg tab ORAL SCH (08:34)
[2019-05-04] MEDS: Nystatin Powder 100,000 units/gm 15gm TOPIC SCH ×2 (08:38→17:16)
[2019-05-04] MEDS ORDERED: Sterile Water Irrig 1000ml IRRIG ONE (11:01)
--- NOTE | 2019-05-04 11:23 | NUR ---
CASE MANAGEMENT: REVIEW 05/02/2019 SI:ACUTE UTI. T 98.4 HR 101 RR 19 B/P 149/72 SATS 96% ON RA NO LABS TODAY IS: IVF @ 75 mL/HR NORVASC PO BID BACLOFEN PO TID MED/SURG STATUS PLAN OF CARE: DC PLANNING 05/03/2019 SI:ACUTE UTI. T 97.5 HR 101 RR 19 B/P 154/80 SATS 95% ON RA CR 0.5 GLU 73 IS: IVF @ 75 mL/HR NORVASC PO BID BACLOFEN PO TID MED/SURG STATUS PLAN OF CARE: DC PLANNING 05/02/2019 SI:ACUTE UTI. T 98.1 HR 93 RR 18 B/P 120/71 SATS 98% ON RA NO LABS TODAY IS: IVF @ 75 mL/HR NORVASC PO BID BACLOFEN PO TID MED/SURG STATUS PLAN OF CARE: DC PLANNING
--- NOTE | 2019-05-04 11:26 | NUR ---
DISCHARGE PLANNING: ROSI FLORES RECEIVED A CALL FROM [facility] AM. POSSIBLE [facility] DC PLAN. Addendum: 05/04/19 at 1347 by Wendy Banks CM F/U CALL PLACED. NO UPDATES AVAILABLE AT THIS TIME
--- NOTE | 2019-05-04 11:26 | NUR ---
INSURANCE REVIEWS FAXED TO [facility] #[phone] FAX#[phone] CELLPHONE [phone]
[2019-05-04 12:00] VITALS: BP 140/68
--- NOTE | 2019-05-04 12:59 | General Progress Note ---
Assessment/Plan Assessment/Plan: Urinary tract infection E coli, resolved hypertension MS, severe multiple wounds sp tube changed wound care, clean and dry dc planning when bed available ready for dc Subjective ROS Limited/Unobtainable: Yes Allergies: Coded Allergies: CEPHALEXIN (Verified Allergy, Unknown, 11/19/09) HYDROMORPHONE (Unverified Allergy, Unknown, 12/27/18) INTERFERON BETA-1B (Verified Allergy, Unknown, 11/01/12) COULDN'T WALK AFTER TAKING MEDICATION NITROFURANTOIN (Verified Allergy, Unknown, 11/19/09) SULFA (SULFONAMIDE ANTIBIOTICS) (Unverified Allergy, Unknown, 12/27/18) SULFAMETHOXAZOLE (Verified Allergy, Unknown, 11/19/09) TRIMETHOPRIM (Verified Allergy, Unknown, 11/19/09) Uncoded Allergies: COTRIM (Allergy, Unknown, 12/27/18) Objective Last 24 Hour Vital Signs Date Time Temp Pulse Resp B/P (MAP) Pulse Ox O2 Delivery O2 Flow Rate FiO2 05/04/19 12:00 98.3 95 16 140/68 (92) 94 05/04/19 08:34 93 120/71 05/04/19 08:10 Room Air 05/04/19 08:09 98.1 93 18 120/71 (87) 98 05/04/19 04:00 98.0 19 151/82 (105) 96 05/04/19 00:00 96.8 84 19 148/80 (102) 97 05/03/19 21:00 Room Air 05/03/19 20:00 97.0 95 18 155/84 (107) 97 05/03/19 17:01 101 146/87 05/03/19 15:58 98.1 101 19 146/87 (106) 97 Intake and Output 05/03/19 05/04/19 19:00 07:00 Intake Total 1620 ml 2195 ml Output Total 1300 ml 1901 ml Balance 320 ml 294 ml Intake Oral 720 ml 720 ml IV Total 900 ml 675 ml Other 800 ml Output Urine Total 1300 ml 1900 ml Stool Total 1 ml # Voids 5 # Bowel Movements 1 1 Height (Feet): 5 Height (Inches): 3.00 Weight (Pounds): 153 General Appearance: no apparent distress Cardiovascular: normal rate Respiratory/Chest: lungs clear Will Dunn MD May 04, 2019 12:59
--- NOTE | 2019-05-04 15:06 | NUR ---
RD ASSESSMENT & RECOMMENDATIONS SEE CARE ACTIVITY FOR COMPLETE ASSESSMENT DAILY ESTIMATED NEEDS: Needs based on Wounds, 53.5kg abw 25-30 kcals/kg 1461-1627 total kcals 1.25-1.5 g protein/kg 67-80 g total protein 25-30 mL/kg 3294-8643 total fluid mLs NUTRITION DIAGNOSIS: Increased kcal/prot intake needs R/T wound healing as evidenced by pt admitted w/ full thickness pressure injury at R buttocks, R ischium, lateral L tibia, and lateral L foot. 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
--- NOTE | 2019-05-04 15:26 | Surgery Progress Note ---
Surgery Progress Note Subjective Additional Comments stable unchanged doing well. dressings changed Objective Last 24 Hour Vital Signs Date Time Temp Pulse Resp B/P (MAP) Pulse Ox O2 Delivery O2 Flow Rate FiO2 05/04/19 12:00 98.3 95 16 140/68 (92) 94 05/04/19 08:34 93 120/71 05/04/19 08:10 Room Air 05/04/19 08:09 98.1 93 18 120/71 (87) 98 05/04/19 04:00 98.0 19 151/82 (105) 96 05/04/19 00:00 96.8 84 19 148/80 (102) 97 05/03/19 21:00 Room Air 05/03/19 20:00 97.0 95 18 155/84 (107) 97 05/03/19 17:01 101 146/87 05/03/19 15:58 98.1 101 19 146/87 (106) 97 I&O Intake and Output 05/03/19 05/04/19 19:00 07:00 Intake Total 1620 ml 2195 ml Output Total 1300 ml 1901 ml Balance 320 ml 294 ml Intake Oral 720 ml 720 ml IV Total 900 ml 675 ml Other 800 ml Output Urine Total 1300 ml 1900 ml Stool Total 1 ml # Voids 5 # Bowel Movements 1 1 Dressing: saturated Wound: other Drains: other Cardiovascular: RSR Respiratory: clear Abdomen: soft, present bowel sounds Extremities: no cyanosis Plan Problems: (1) Sacral decubitus ulcer, stage IV Assessment & Plan: PT presented on admission in grossly unkempt state with multiple pressure injuries. Full thickness stage 4 pressure injury sacrococcygeal area(L)4cm x (W)2.5cm x (D)0.7cm. Biofilm at base of wound and bone is palpable. Additionally, surrounding areas of wound encompassing R and L buttocks and extending into both ischial regions are erythematous -moist with scattered areas of slough and scattered pink epithelial (L)14.5cm x (W)11cm. Full thickness pressure injury R buttocks with 80% slough (L)1.5cm x (W)1cm. Full thickness pressure injury R ischium . Base of wound has 100% slough. (L) (L )2.4cm x (W)3.5cm. Borders and surrounding areas are moist and viable. Tender when minimally palpated. Full thickness pressure injury lateral L tibia .base of wound with mixed eschar and slough . No odor noted .Small amt seropurulent exudate. periwound has darker skin tone with dry, scaly skin.(L)5cm x (W)2cm. Full thickness ulcer lateral L foot . Base of wound 50% viable ,50% slough.Borders are macerated. Periwound dry and flaky without erythema or fluctuance. Tx.Plan. Cleanse sacrococcygeal wound with saline. Apply Therahoney . Apply Moisture Barrier Paste to surrounding buttocks Cover with Optifoam drsg Daily and prn. Cleanse Wound R buttocks with saline. Apply Therahoney. Apply Moisture Barrier periwound. Cover with Optifoam Daily and prn. Cleanse R ischial wound with saline.Apply Therahoney. Apply Moisture Barrier periwound .Cover with Optifoam drsg Daily and prn. Apply Cavilon Skin Barrier to both heels. Cover each heel with Optifoam drsg. Change every 7 days and prn. APM/DESTIN Mattress. Reposition at least every 2hours or as tolerated. Off-load heels with pillow. cont with above care orders upon discharge (2) Abdominal pain Assessment & Plan: leukocytosis resolved abd discomfort resolved KUB with Findings: Severe fecal retention is noted. There is no evidence of abnormal gaseous distention of small bowel loops to suggest small bowel obstruction. Bones are demineralized. Degenerative and chronic changes are noted in the spine and bilateral hips. No acute osseous abnormality.Impression: Findings suggestive of marked rectal fecal retention/impaction. diet as tolerated d/c planning from surgical standpoint will follow with recs thank you Niels Carroll May 04, 2019 15:26
[2019-05-04 16:00] VITALS: BP 149/73
--- NOTE | 2019-05-04 19:24 | NUR ---
nurse notes HAND-OFF: Report given to Ms Nunez RN, tahira rubi rn.
--- NOTE | 2019-05-04 19:55 | NUR ---
NURSE NOTES: Received patient awake,alert,verbal,resting in bed,comfortable.
[2019-05-04 20:00] VITALS: BP 121/62
--- NOTE | 2019-05-05 07:11 | NUR ---
HAND-OFF: Report given to Chela Ramos RN.
--- NOTE | 2019-05-05 07:30 | NUR ---
nurse notes Received patient in bed, patient awake, alert oriented x4.RA, no signs of distress . IVF intact and infusing well. Suprapubic catheter intact patent, and draining urine well.on fall and aspiration precaution, Bed in lowest position with call light in reach plan of care instructed and verbalized understanding. 4 P's in progress. Will continue with plan of care. brian rubi
[2019-05-05 08:00] VITALS: BP 138/69
[2019-05-05] MEDS: Vitamin D 1000 IU Tab ORAL SCH (08:40)
[2019-05-05] MEDS: Bisacodyl EC 5mg tab ORAL SCH (08:40)
[2019-05-05] MEDS: Heparin 5000 units/ml inj SUBQ SCH ×2 (08:42→21:06)
[2019-05-05] MEDS: Nystatin Powder 100,000 units/gm 15gm TOPIC SCH ×2 (08:44→17:35)
[2019-05-05 12:06] VITALS: BP 120/77
--- NOTE | 2019-05-05 13:15 | NUR ---
DISCHARGE PLANNING: NOTE F/U PLACED TO [facility] REGARDING [facility] DC PLAN. VM LEFT. AWAITING CALL BACK
--- NOTE | 2019-05-05 13:17 | NUR ---
CASE MANAGEMENT: REVIEW 05/04/2019 SI:ACUTE UTI. T 97.7 HR 64 RR 15 B/P 120/77 SATS 97% ON RA NO LABS TODAY IS: IVF @ 75 mL/HR NORVASC PO BID BACLOFEN PO TID MED/SURG STATUS PLAN OF CARE: DC PLANNING
--- NOTE | 2019-05-05 13:21 | NUR ---
INSURANCE REVIEWS FAXED TO [facility] #[phone] FAX#[phone] CELLPHONE [phone]
--- NOTE | 2019-05-05 13:27 | Surgery Progress Note ---
Surgery Progress Note Subjective Symptoms: improved, tolerating diet, voiding well, passing flatus, BM Objective Last 24 Hour Vital Signs Date Time Temp Pulse Resp B/P (MAP) Pulse Ox O2 Delivery O2 Flow Rate FiO2 05/05/19 12:06 97.7 64 15 120/77 (91) 97 05/05/19 08:40 99 138/69 05/05/19 08:08 Room Air 05/05/19 08:00 98.7 99 18 138/69 (92) 95 05/04/19 20:10 Room Air 05/04/19 20:00 97.9 100 18 121/62 (81) 98 05/04/19 17:16 95 149/73 05/04/19 16:00 98.1 95 18 149/73 (98) 94 I&O Intake and Output 05/04/19 05/05/19 19:00 07:00 Intake Total 825 ml 900 ml Output Total 2450 ml Balance 825 ml -1550 ml IV Total 825 ml 900 ml Output Urine Total 2450 ml Dressing: saturated Wound: other Drains: other Cardiovascular: RSR Respiratory: clear Abdomen: soft, flat, non-tender, present bowel sounds Extremities: no cyanosis Plan Problems: (1) Sacral decubitus ulcer, stage IV Assessment & Plan: PT presented on admission in grossly unkempt state with multiple pressure injuries. Full thickness stage 4 pressure injury sacrococcygeal area(L)4cm x (W)2.5cm x (D)0.7cm. Biofilm at base of wound and bone is palpable. Additionally, surrounding areas of wound encompassing R and L buttocks and extending into both ischial regions are erythematous -moist with scattered areas of slough and scattered pink epithelial (L)14.5cm x (W)11cm. Full thickness pressure injury R buttocks with 80% slough (L)1.5cm x (W)1cm. Full thickness pressure injury R ischium . Base of wound has 100% slough. (L) (L )2.4cm x (W)3.5cm. Borders and surrounding areas are moist and viable. Tender when minimally palpated. Full thickness pressure injury lateral L tibia .base of wound with mixed eschar and slough . No odor noted .Small amt seropurulent exudate. periwound has darker skin tone with dry, scaly skin.(L)5cm x (W)2cm. Full thickness ulcer lateral L foot . Base of wound 50% viable ,50% slough.Borders are macerated. Periwound dry and flaky without erythema or fluctuance. Tx.Plan. Cleanse sacrococcygeal wound with saline. Apply Therahoney . Apply Moisture Barrier Paste to surrounding buttocks Cover with Optifoam drsg Daily and prn. Cleanse Wound R buttocks with saline. Apply Therahoney. Apply Moisture Barrier periwound. Cover with Optifoam Daily and prn. Cleanse R ischial wound with saline.Apply Therahoney. Apply Moisture Barrier periwound .Cover with Optifoam drsg Daily and prn. Apply Cavilon Skin Barrier to both heels. Cover each heel with Optifoam drsg. Change every 7 days and prn. APM/DESTIN Mattress. Reposition at least every 2hours or as tolerated. Off-load heels with pillow. cont with above care orders upon discharge (2) Abdominal pain Assessment & Plan: leukocytosis resolved abd discomfort resolved KUB with Findings: Severe fecal retention is noted. There is no evidence of abnormal gaseous distention of small bowel loops to suggest small bowel obstruction. Bones are demineralized. Degenerative and chronic changes are noted in the spine and bilateral hips. No acute osseous abnormality.Impression: Findings suggestive of marked rectal fecal retention/impaction. diet as tolerated d/c planning from surgical standpoint will follow with recs thank you Niels Carroll May 05, 2019 13:27
--- NOTE | 2019-05-05 13:41 | General Progress Note ---
Assessment/Plan Assessment/Plan: Urinary tract infection E coli, resolved hypertension MS, severe multiple wounds awaiting placement stable wound care, clean and dry dc planning when bed available ready for dc Subjective ROS Limited/Unobtainable: Yes Allergies: Coded Allergies: CEPHALEXIN (Verified Allergy, Unknown, 11/19/09) HYDROMORPHONE (Unverified Allergy, Unknown, 12/27/18) INTERFERON BETA-1B (Verified Allergy, Unknown, 11/01/12) COULDN'T WALK AFTER TAKING MEDICATION NITROFURANTOIN (Verified Allergy, Unknown, 11/19/09) SULFA (SULFONAMIDE ANTIBIOTICS) (Unverified Allergy, Unknown, 12/27/18) SULFAMETHOXAZOLE (Verified Allergy, Unknown, 11/19/09) TRIMETHOPRIM (Verified Allergy, Unknown, 11/19/09) Uncoded Allergies: COTRIM (Allergy, Unknown, 12/27/18) Objective Last 24 Hour Vital Signs Date Time Temp Pulse Resp B/P (MAP) Pulse Ox O2 Delivery O2 Flow Rate FiO2 05/05/19 12:06 97.7 64 15 120/77 (91) 97 05/05/19 08:40 99 138/69 05/05/19 08:08 Room Air 05/05/19 08:00 98.7 99 18 138/69 (92) 95 05/04/19 20:10 Room Air 05/04/19 20:00 97.9 100 18 121/62 (81) 98 05/04/19 17:16 95 149/73 05/04/19 16:00 98.1 95 18 149/73 (98) 94 Intake and Output 05/04/19 05/05/19 19:00 07:00 Intake Total 825 ml 900 ml Output Total 2450 ml Balance 825 ml -1550 ml IV Total 825 ml 900 ml Output Urine Total 2450 ml Height (Feet): 5 Height (Inches): 3.00 Weight (Pounds): 153 Will Dunn MD May 05, 2019 13:41
[2019-05-05 16:04] VITALS: BP_SYST 116; BP_SYST 139; BP_DIAS 67; BP_DIAS 78
--- NOTE | 2019-05-05 16:56 | Progress Note ---
DATE: 05/04/2019 SUBJECTIVE: The patient is in bed, no acute distress. She is depressed, withdrawn, and isolated. Presents with anhedonia, worthlessness, and more forgetful. She has poor insight. MENTAL STATUS EXAMINATION: The patient is alert and oriented times self, place, and situation. Mood is depressed. Affect is constricted, congruent with mood. Thought process is linear and goal oriented. Thought content, no suicidal or homicidal ideations. Cognition is impaired. ASSESSMENT: 1. Depressive disorder. 2. Cognitive impairment. 3. The patient lacks capacity to make decisions. PLAN: 1. We will continue current medications. 2. Provide the patient with reality orientation and supportive therapy. Christie Byrd M.D. DR: YUMIKO JOB#: [id number] CC:
--- NOTE | 2019-05-05 17:34 | Urology Progress Note ---
Assessment/Plan Assessment/Plan: 1. Urinary retention with chronic suprapubic tube. 2. Neurogenic bladder. 3. Pyuria and probable colonized urine with possible UTI. 4. Hematuria. 5. Proteinuria. keep SP tube, last exchanged 05/04 hand irrigated and do PRN position is satisfactory s/p abx consider renal imaging study cysto later Subjective Allergies: Coded Allergies: CEPHALEXIN (Verified Allergy, Unknown, 11/19/09) HYDROMORPHONE (Unverified Allergy, Unknown, 12/27/18) INTERFERON BETA-1B (Verified Allergy, Unknown, 11/01/12) COULDN'T WALK AFTER TAKING MEDICATION NITROFURANTOIN (Verified Allergy, Unknown, 11/19/09) SULFA (SULFONAMIDE ANTIBIOTICS) (Unverified Allergy, Unknown, 12/27/18) SULFAMETHOXAZOLE (Verified Allergy, Unknown, 11/19/09) TRIMETHOPRIM (Verified Allergy, Unknown, 11/19/09) Uncoded Allergies: COTRIM (Allergy, Unknown, 12/27/18) Subjective all noted, new SP tube draining OK Objective Last 24 Hour Vital Signs Date Time Temp Pulse Resp B/P (MAP) Pulse Ox O2 Delivery O2 Flow Rate FiO2 05/05/19 16:04 98.3 103 17 116/78 (91) 98 05/05/19 12:06 97.7 64 15 120/77 (91) 97 05/05/19 08:40 99 138/69 05/05/19 08:08 Room Air 05/05/19 08:00 98.7 99 18 138/69 (92) 95 05/04/19 20:10 Room Air 05/04/19 20:00 97.9 100 18 121/62 (81) 98 Intake and Output 05/04/19 05/05/19 19:00 07:00 Intake Total 825 ml 900 ml Output Total 2450 ml Balance 825 ml -1550 ml IV Total 825 ml 900 ml Output Urine Total 2450 ml Microbiology Date/Time Source Procedure Growth Status 04/17/19 14:37 Urine,Clean Catch Urine Culture - Final Escherichia Coli Complete Current Medications Medications (Trade) Dose Ordered Sig/Fransisca Route PRN Reason Start Time Stop Time Status Last Admin Dose Admin Acetaminophen (Tylenol) 650 mg Q6H PRN ORAL pain 1-6 05/01/19 21:30 05/31/19 21:29 05/02/19 08:52 Amlodipine Besylate (Norvasc) 5 mg BID ORAL 04/26/19 18:00 05/17/19 17:59 05/05/19 08:40 Baclofen (Lioresal) 10 mg THREE TIMES A DAY ORAL 04/26/19 18:00 05/17/19 17:59 05/05/19 12:23 Bisacodyl (Dulcolax) 5 mg DAILY ORAL 04/27/19 09:00 05/18/19 08:59 05/05/19 08:40 Diphenhydramine HCl (Benadryl) 25 mg Q8H PRN ORAL Itching 04/26/19 15:00 05/25/19 14:59 04/29/19 09:35 Heparin Sodium (Porcine) (Heparin 5000 units/ml) 5,000 units EVERY 12 HOURS SUBQ 04/26/19 21:00 05/19/19 20:59 05/05/19 08:42 Multivitamins (Multivitamins) 1 tab DAILY ORAL 04/27/19 09:00 05/18/19 08:59 05/05/19 08:40 Nystatin (Nystop Powder) 1 applic BID TOPIC 05/03/19 14:00 06/02/19 13:59 05/05/19 08:44 Sodium Chloride 1,000 ml @ 75 mls/hr [id number] IV 04/26/19 15:00 05/19/19 17:59 05/05/19 12:23 Vitamin D (Vitamin D) 1,000 intlu DAILY ORAL 04/27/19 09:00 05/18/19 08:59 05/05/19 08:40 Height (Feet): 5 Height (Inches): 3.00 Weight (Pounds): 153 Objective exam stable SP tube in place, urine yellow with some debris Jah Syed MD May 05, 2019 17:34
--- NOTE | 2019-05-05 19:02 | NUR ---
HAND-OFF: Report given to YOLANDA MORATAYA accordingly YOLANDA Schwartz.
--- NOTE | 2019-05-05 19:15 | Progress Note ---
DATE: 05/05/2019 SUBJECTIVE: The patient is resting in bed, lying down. No behavior issues. Has episodes of anxiety. Poor insight. MENTAL STATUS EXAMINATION: The patient is alert, oriented times self, place, and situation. Mood is neutral. Affect is flat. Thought process, there is a paucity of thought content. Thought content, no suicidal or homicidal ideation. ASSESSMENT: Anxiety, depression, cognitive impairment. PLAN: 1. We will continue current medication. 2. Provide the patient reality orientation and supportive therapy. Christie Byrd M.D. DR: AMBER JOB#: [id number] CC:
--- NOTE | 2019-05-05 19:31 | NUR ---
NURSE NOTES: Received patient awake,alert,verbal,resting in bed,comfortable.
[2019-05-05 20:00] VITALS: BP 127/70
[2019-05-05 23:48] VITALS: BP 125/73
[2019-05-06 04:00] VITALS: BP 141/69
--- NOTE | 2019-05-06 07:23 | NUR ---
HAND-OFF: Report given to MD Dee. Addendum: 05/06/19 at 0724 by JANAY EDMONDSON RN HAND-OFF: Report given to YOLANDA Price.
[2019-05-06 08:00] VITALS: BP 143/72
[2019-05-06] MEDS: Vitamin D 1000 IU Tab ORAL SCH (10:10)
[2019-05-06] MEDS: Bisacodyl EC 5mg tab ORAL SCH (10:11)
[2019-05-06] MEDS: Heparin 5000 units/ml inj SUBQ SCH ×2 (10:17→20:49)
--- NOTE | 2019-05-06 11:07 | NUR ---
DISCHARGE PLANNING: NOTE CLINICALS FAXED TO [facility] FOR REVIEW F:
[2019-05-06] MEDS: Nystatin Powder 100,000 units/gm 15gm TOPIC SCH ×2 (11:42→17:42)
[2019-05-06 12:00] VITALS: BP 150/70
[2019-05-06] MEDS: Milk of Magnesia 30ml Ud ORAL PRN (12:49)
--- NOTE | 2019-05-06 13:03 | NUR ---
CASE MANAGEMENT: REVIEW 05/06/2019 SI:ACUTE UTI. T 98 HR 80 RR 17 B/P 150/70 SATS 99% ON RA NO LABS TODAY IS: IVF @ 75 mL/HR NORVASC PO BID BACLOFEN PO TID MED/SURG STATUS PLAN OF CARE: DC PLANNING
--- NOTE | 2019-05-06 13:04 | NUR ---
INSURANCE REVIEWS FAXED TO [facility] #[phone] FAX#[phone] CELLPHONE [phone]
--- NOTE | 2019-05-06 13:18 | NUR ---
NURSE NOTES: HANDOFF RECEIVED FROM YOLANDA GUSTAFSON. PATIENT STABLE AND ALERT, ABLE TO MAKE NEEDS KNOWN. PATIENT HAS CALL LIGHT AND PHONE WITHIN REACH. IV SITE IS CLEAN DRY AND INTACT RUNNING FLUIDS PRESCRIBED. NO PHYSICAL SIGNS OF DISTRESS. BED IN LOW AND LOCKED POSITION. WILL CONTINUE TO MONITOR.
--- NOTE | 2019-05-06 14:59 | Surgery Progress Note ---
Surgery Progress Note Subjective Additional Comments no acute events doing well no complaints Objective Last 24 Hour Vital Signs Date Time Temp Pulse Resp B/P (MAP) Pulse Ox O2 Delivery O2 Flow Rate FiO2 05/06/19 12:00 98.0 80 17 150/70 (96) 99 05/06/19 10:11 101 143/72 05/06/19 09:00 Room Air 05/06/19 08:00 98.6 101 16 143/72 (95) 98 05/06/19 04:00 97.9 94 17 141/69 (93) 98 05/05/19 23:48 98.2 89 16 125/73 (90) 96 05/05/19 20:02 Room Air 05/05/19 20:00 98.2 93 17 127/70 (89) 96 05/05/19 17:35 103 116/78 05/05/19 16:04 98.3 103 17 116/78 (91) 98 I&O Intake and Output 05/05/19 05/06/19 19:00 07:00 Intake Total 1360 ml 1260 ml Output Total 1200 ml 1600 ml Balance 160 ml -340 ml Intake Oral 500 ml 360 ml IV Total 860 ml 900 ml Output Urine Total 1200 ml 1600 ml # Voids 2 Dressing: saturated Wound: clean Cardiovascular: RSR Respiratory: clear Abdomen: soft, flat, non-tender, present bowel sounds Extremities: no tenderness, no cyanosis Plan Problems: (1) Sacral decubitus ulcer, stage IV Assessment & Plan: PT presented on admission in grossly unkempt state with multiple pressure injuries. Full thickness stage 4 pressure injury sacrococcygeal area(L)4cm x (W)2.5cm x (D)0.7cm. Biofilm at base of wound and bone is palpable. Additionally, surrounding areas of wound encompassing R and L buttocks and extending into both ischial regions are erythematous -moist with scattered areas of slough and scattered pink epithelial (L)14.5cm x (W)11cm. Full thickness pressure injury R buttocks with 80% slough (L)1.5cm x (W)1cm. Full thickness pressure injury R ischium . Base of wound has 100% slough. (L) (L )2.4cm x (W)3.5cm. Borders and surrounding areas are moist and viable. Tender when minimally palpated. Full thickness pressure injury lateral L tibia .base of wound with mixed eschar and slough . No odor noted .Small amt seropurulent exudate. periwound has darker skin tone with dry, scaly skin.(L)5cm x (W)2cm. Full thickness ulcer lateral L foot . Base of wound 50% viable ,50% slough.Borders are macerated. Periwound dry and flaky without erythema or fluctuance. Tx.Plan. Cleanse sacrococcygeal wound with saline. Apply Therahoney . Apply Moisture Barrier Paste to surrounding buttocks Cover with Optifoam drsg Daily and prn. Cleanse Wound R buttocks with saline. Apply Therahoney. Apply Moisture Barrier periwound. Cover with Optifoam Daily and prn. Cleanse R ischial wound with saline.Apply Therahoney. Apply Moisture Barrier periwound .Cover with Optifoam drsg Daily and prn. Apply Cavilon Skin Barrier to both heels. Cover each heel with Optifoam drsg. Change every 7 days and prn. APM/DESTIN Mattress. Reposition at least every 2hours or as tolerated. Off-load heels with pillow. cont with above care orders upon discharge (2) Abdominal pain Assessment & Plan: leukocytosis resolved abd discomfort resolved KUB with Findings: Severe fecal retention is noted. There is no evidence of abnormal gaseous distention of small bowel loops to suggest small bowel obstruction. Bones are demineralized. Degenerative and chronic changes are noted in the spine and bilateral hips. No acute osseous abnormality.Impression: Findings suggestive of marked rectal fecal retention/impaction. diet as tolerated d/c planning from surgical standpoint will follow with recs thank you Niels Carroll May 06, 2019 14:59
[2019-05-06 16:00] VITALS: BP 144/79
--- NOTE | 2019-05-06 17:28 | General Progress Note ---
Assessment/Plan Assessment/Plan: Urinary tract infection E coli, resolved hypertension, controlled MS, severe multiple wounds constipation awaiting placement stable wound care, clean and dry dc planning when bed available ready for dc DSS, MOM advised she will be placed and she is not happy Subjective ROS Limited/Unobtainable: Yes Constitutional: Reports: no symptoms Allergies: Coded Allergies: CEPHALEXIN (Verified Allergy, Unknown, 11/19/09) HYDROMORPHONE (Unverified Allergy, Unknown, 12/27/18) INTERFERON BETA-1B (Verified Allergy, Unknown, 11/01/12) COULDN'T WALK AFTER TAKING MEDICATION NITROFURANTOIN (Verified Allergy, Unknown, 11/19/09) SULFA (SULFONAMIDE ANTIBIOTICS) (Unverified Allergy, Unknown, 12/27/18) SULFAMETHOXAZOLE (Verified Allergy, Unknown, 11/19/09) TRIMETHOPRIM (Verified Allergy, Unknown, 11/19/09) Uncoded Allergies: COTRIM (Allergy, Unknown, 12/27/18) Objective Last 24 Hour Vital Signs Date Time Temp Pulse Resp B/P (MAP) Pulse Ox O2 Delivery O2 Flow Rate FiO2 05/06/19 16:00 98.1 106 17 144/79 (100) 96 05/06/19 12:00 98.0 80 17 150/70 (96) 99 05/06/19 10:11 101 143/72 05/06/19 09:00 Room Air 05/06/19 08:00 98.6 101 16 143/72 (95) 98 05/06/19 04:00 97.9 94 17 141/69 (93) 98 05/05/19 23:48 98.2 89 16 125/73 (90) 96 05/05/19 20:02 Room Air 05/05/19 20:00 98.2 93 17 127/70 (89) 96 05/05/19 17:35 103 116/78 Intake and Output 05/05/19 05/06/19 19:00 07:00 Intake Total 1360 ml 1260 ml Output Total 1200 ml 1600 ml Balance 160 ml -340 ml Intake Oral 500 ml 360 ml IV Total 860 ml 900 ml Output Urine Total 1200 ml 1600 ml # Voids 2 Height (Feet): 5 Height (Inches): 3.00 Weight (Pounds): 137 General Appearance: no apparent distress Cardiovascular: normal rate Will Dunn MD May 06, 2019 17:28
[2019-05-06] MEDS: Docusate 100mg tablet ORAL SCH (17:32)
--- NOTE | 2019-05-06 19:14 | NUR ---
HAND-OFF: Report given to YOLANDA LOPEZ.
--- NOTE | 2019-05-06 19:20 | NUR ---
NURSE NOTES: Received report from YOLANDA Sim. Patient a/a/o, breathing unlabored without distress discomfort or sob noted. Received tylenol for generalized body aching and when reassessed patient verbalized pain went down to 6/10. Repositioning and rest was provided to as nonpharmacological method to relieve body aching. IV site noted on right wrist running fluid as ordered. Bed placed at the lowest with alarm, brake, and side rails up for safety. Call light placed within reach. Will continue to monitor and provide care as ordered. Addendum: 05/06/19 at 2253 by Magda Jeffers RN Suprapubic cath intact with dry dressing running yellow urine
[2019-05-06 20:00] VITALS: BP 154/75
--- NOTE | 2019-05-06 20:57 | Urology Progress Note ---
Assessment/Plan Assessment/Plan: 1. Urinary retention with chronic suprapubic tube. 2. Neurogenic bladder. 3. Pyuria and probable colonized urine with possible UTI. 4. Hematuria. 5. Proteinuria. keep SP tube, last exchanged 05/04 hand irrigated and do PRN position is satisfactory s/p abx consider renal imaging study cysto later Subjective Allergies: Coded Allergies: CEPHALEXIN (Verified Allergy, Unknown, 11/19/09) HYDROMORPHONE (Unverified Allergy, Unknown, 12/27/18) INTERFERON BETA-1B (Verified Allergy, Unknown, 11/01/12) COULDN'T WALK AFTER TAKING MEDICATION NITROFURANTOIN (Verified Allergy, Unknown, 11/19/09) SULFA (SULFONAMIDE ANTIBIOTICS) (Unverified Allergy, Unknown, 12/27/18) SULFAMETHOXAZOLE (Verified Allergy, Unknown, 11/19/09) TRIMETHOPRIM (Verified Allergy, Unknown, 11/19/09) Uncoded Allergies: COTRIM (Allergy, Unknown, 12/27/18) Subjective all noted, new SP tube draining OK Objective Last 24 Hour Vital Signs Date Time Temp Pulse Resp B/P (MAP) Pulse Ox O2 Delivery O2 Flow Rate FiO2 05/06/19 17:32 106 144/79 05/06/19 16:00 98.1 106 17 144/79 (100) 96 05/06/19 12:00 98.0 80 17 150/70 (96) 99 05/06/19 10:11 101 143/72 05/06/19 09:00 Room Air 05/06/19 08:00 98.6 101 16 143/72 (95) 98 05/06/19 04:00 97.9 94 17 141/69 (93) 98 05/05/19 23:48 98.2 89 16 125/73 (90) 96 Intake and Output 05/05/19 05/06/19 19:00 07:00 Intake Total 1360 ml 1260 ml Output Total 1200 ml 1600 ml Balance 160 ml -340 ml Intake Oral 500 ml 360 ml IV Total 860 ml 900 ml Output Urine Total 1200 ml 1600 ml # Voids 2 Microbiology Date/Time Source Procedure Growth Status 04/17/19 14:37 Urine,Clean Catch Urine Culture - Final Escherichia Coli Complete Current Medications Medications (Trade) Dose Ordered Sig/Fransisca Route PRN Reason Start Time Stop Time Status Last Admin Dose Admin Acetaminophen (Tylenol) 650 mg Q6H PRN ORAL pain 1-6 05/01/19 21:30 05/31/19 21:29 05/06/19 18:39 Amlodipine Besylate (Norvasc) 5 mg BID ORAL 04/26/19 18:00 05/17/19 17:59 05/06/19 17:32 Baclofen (Lioresal) 10 mg THREE TIMES A DAY ORAL 04/26/19 18:00 05/17/19 17:59 05/06/19 17:32 Bisacodyl (Dulcolax) 5 mg DAILY ORAL 04/27/19 09:00 05/18/19 08:59 05/06/19 10:11 Diphenhydramine HCl (Benadryl) 25 mg Q8H PRN ORAL Itching 04/26/19 15:00 05/25/19 14:59 04/29/19 09:35 Docusate Sodium (Colace) 100 mg BID ORAL 05/06/19 18:00 06/05/19 17:59 05/06/19 17:32 Heparin Sodium (Porcine) (Heparin 5000 units/ml) 5,000 units EVERY 12 HOURS SUBQ 04/26/19 21:00 05/19/19 20:59 05/06/19 20:49 Magnesium Hydroxide (Mom) 30 ml DAILYPRN PRN ORAL Constipation 05/06/19 12:00 06/05/19 11:59 05/06/19 12:49 Multivitamins (Multivitamins) 1 tab DAILY ORAL 04/27/19 09:00 05/18/19 08:59 05/06/19 10:12 Nystatin (Nystop Powder) 1 applic BID TOPIC 05/03/19 14:00 06/02/19 13:59 05/06/19 17:42 Sodium Chloride 1,000 ml @ 75 mls/hr [id number] IV 04/26/19 15:00 05/19/19 17:59 05/06/19 13:43 Vitamin D (Vitamin D) 1,000 intlu DAILY ORAL 04/27/19 09:00 05/18/19 08:59 05/06/19 10:10 Height (Feet): 5 Height (Inches): 3.00 Weight (Pounds): 137 Objective exam stable SP tube in place, urine yellow with some debris Jah Syed MD May 06, 2019 20:57
[2019-05-07] VITALS (7 sets, daily range): BP systolic 127–161; BP diastolic 67–94
--- NOTE | 2019-05-07 06:22 | NUR ---
CASE MANAGEMENT: REVIEW 05/07/2019 SI:ACUTE UTI. T 98.2 HR 91 RR 19 B/P 137/84 SATS 98% ON RA NO LABS TODAY IS: IVF @ 75 mL/HR NORVASC PO BID BACLOFEN PO TID MED/SURG STATUS PLAN OF CARE: DC PLANNING
--- NOTE | 2019-05-07 06:24 | NUR ---
INSURANCE REVIEWS FAXED TO [facility] #[phone] FAX#[phone] CELLPHONE [phone]
--- NOTE | 2019-05-07 06:30 | Progress Note ---
DATE: 05/06/2019 SUBJECTIVE: The patient's mental condition unchanged since previous encounter. The patient is more anxious today and has shortness of breath. She is complaining of pain. The patient is unable to have a rational conversation. She has episodes of anxiety. MENTAL STATUS EXAMINATION: The patient is alert and oriented times self and place. She knows she is in the hospital. Mood is anxious. Affect is flat. Thought process is concrete. Thought content, no suicidal or homicidal ideation. ASSESSMENT: Depressive disorder. PLAN: The patient lacks capacity to make decisions. We will continue to follow and readjust the medications. Christie Byrd M.D. DR: NEGRITO JOB#: [id number] CC:
--- NOTE | 2019-05-07 07:01 | NUR ---
NURSE NOTES: HANDOFF RECEIVED FROM MINSU,RN. PATIENT ALERT AND RESTING IN BED, ABLE TO MAKE NEEDS KNOWN. NO PHYSICAL SIGNS OF DISTRESS. IV SITE IS CLEAN, DRY AND INTACT RUNNING PRESCRIBED FLUIDS AT 75ML/HOUR. BED IN THE LOW AND LOCKED POSITION, CALL LIGHT ON PATIENTS UPPER CHEST WHERE SHE CAN REACH IT. WILL CONTINUE TO MONITOR.
--- NOTE | 2019-05-07 07:29 | Urology Progress Note ---
Assessment/Plan Assessment/Plan: 1. Urinary retention with chronic suprapubic tube. 2. Neurogenic bladder. 3. Pyuria and probable colonized urine with possible UTI. 4. Hematuria. 5. Proteinuria. keep SP tube, last exchanged 05/04 hand irrigated and do PRN position is satisfactory s/p abx consider renal imaging study cysto later Subjective Allergies: Coded Allergies: CEPHALEXIN (Verified Allergy, Unknown, 11/19/09) HYDROMORPHONE (Unverified Allergy, Unknown, 12/27/18) INTERFERON BETA-1B (Verified Allergy, Unknown, 11/01/12) COULDN'T WALK AFTER TAKING MEDICATION NITROFURANTOIN (Verified Allergy, Unknown, 11/19/09) SULFA (SULFONAMIDE ANTIBIOTICS) (Unverified Allergy, Unknown, 12/27/18) SULFAMETHOXAZOLE (Verified Allergy, Unknown, 11/19/09) TRIMETHOPRIM (Verified Allergy, Unknown, 11/19/09) Uncoded Allergies: COTRIM (Allergy, Unknown, 12/27/18) Subjective all noted, new SP tube draining OK Objective Last 24 Hour Vital Signs Date Time Temp Pulse Resp B/P (MAP) Pulse Ox O2 Delivery O2 Flow Rate FiO2 05/07/19 04:00 98.2 91 19 137/84 (101) 98 05/07/19 00:00 97.8 96 19 133/67 (89) 97 05/06/19 21:00 Room Air 05/06/19 20:00 98.1 108 19 154/75 (101) 95 05/06/19 17:32 106 144/79 05/06/19 16:00 98.1 106 17 144/79 (100) 96 05/06/19 12:00 98.0 80 17 150/70 (96) 99 05/06/19 10:11 101 143/72 05/06/19 09:00 Room Air 05/06/19 08:00 98.6 101 16 143/72 (95) 98 Intake and Output 05/06/19 05/07/19 18:59 06:59 Intake Total 675 ml 2300 ml Output Total 1000 ml 1 ml Balance -325 ml 2299 ml Intake Oral 600 ml 600 ml IV Total 75 ml 900 ml Other 800 ml Output Urine Total 1000 ml Stool Total 1 ml # Voids 2 # Bowel Movements 1 Microbiology Date/Time Source Procedure Growth Status 04/17/19 14:37 Urine,Clean Catch Urine Culture - Final Escherichia Coli Complete Current Medications Medications (Trade) Dose Ordered Sig/Fransisca Route PRN Reason Start Time Stop Time Status Last Admin Dose Admin Acetaminophen (Tylenol) 650 mg Q6H PRN ORAL pain 1-6 05/01/19 21:30 05/31/19 21:29 05/06/19 18:39 Amlodipine Besylate (Norvasc) 5 mg BID ORAL 04/26/19 18:00 05/17/19 17:59 05/06/19 17:32 Baclofen (Lioresal) 10 mg THREE TIMES A DAY ORAL 04/26/19 18:00 05/17/19 17:59 05/06/19 17:32 Bisacodyl (Dulcolax) 5 mg DAILY ORAL 04/27/19 09:00 05/18/19 08:59 05/06/19 10:11 Diphenhydramine HCl (Benadryl) 25 mg Q8H PRN ORAL Itching 04/26/19 15:00 05/25/19 14:59 04/29/19 09:35 Docusate Sodium (Colace) 100 mg BID ORAL 05/06/19 18:00 06/05/19 17:59 05/06/19 17:32 Heparin Sodium (Porcine) (Heparin 5000 units/ml) 5,000 units EVERY 12 HOURS SUBQ 04/26/19 21:00 05/19/19 20:59 05/06/19 20:49 Magnesium Hydroxide (Mom) 30 ml DAILYPRN PRN ORAL Constipation 05/06/19 12:00 06/05/19 11:59 05/06/19 12:49 Multivitamins (Multivitamins) 1 tab DAILY ORAL 04/27/19 09:00 05/18/19 08:59 05/06/19 10:12 Nystatin (Nystop Powder) 1 applic BID TOPIC 05/03/19 14:00 06/02/19 13:59 05/06/19 17:42 Sodium Chloride 1,000 ml @ 75 mls/hr [id number] IV 04/26/19 15:00 05/19/19 17:59 05/07/19 04:12 Vitamin D (Vitamin D) 1,000 intlu DAILY ORAL 04/27/19 09:00 9/9/19 08:59 05/06/19 10:10 Height (Feet): 5 Height (Inches): 3.00 Weight (Pounds): 137 Objective exam stable SP tube in place, urine yellow with some debris Jah Syed MD May 07, 2019 07:29
--- NOTE | 2019-05-07 07:36 | NUR ---
HAND-OFF: Report given to YOLANDA Sim.
[2019-05-07] MEDS: Docusate 100mg tablet ORAL SCH ×2 (09:51→17:26)
[2019-05-07] MEDS: Milk of Magnesia 30ml Ud ORAL PRN (09:51)
[2019-05-07] MEDS: Bisacodyl EC 5mg tab ORAL SCH (09:52)
[2019-05-07] MEDS: Vitamin D 1000 IU Tab ORAL SCH (09:52)
[2019-05-07] MEDS: Nystatin Powder 100,000 units/gm 15gm TOPIC SCH ×2 (09:53→17:27)
[2019-05-07] MEDS: Heparin 5000 units/ml inj SUBQ SCH ×2 (09:55→20:19)
--- NOTE | 2019-05-07 11:24 | NUR ---
DISCHARGE PLANNING: NOTE [facility] NOT ACCEPT[facility]. [facility] WERE FAXED TO [facility] FOR REVIEW. ERIN LEFT FOR SHAUNA FOR [facility]
--- NOTE | 2019-05-07 12:28 | Surgery Progress Note ---
Surgery Progress Note Subjective Additional Comments awaiting placement states she keeps trying to make phone calls to go home but phone is not working she wants to stay in this hospital Objective Last 24 Hour Vital Signs Date Time Temp Pulse Resp B/P (MAP) Pulse Ox O2 Delivery O2 Flow Rate FiO2 05/07/19 09:52 103 161/94 05/07/19 09:00 Room Air 05/07/19 08:00 97.9 103 19 161/94 (116) 95 05/07/19 04:00 98.2 91 19 137/84 (101) 98 05/07/19 00:00 97.8 96 19 133/67 (89) 97 05/06/19 21:00 Room Air 05/06/19 20:00 98.1 108 19 154/75 (101) 95 05/06/19 17:32 106 144/79 05/06/19 16:00 98.1 106 17 144/79 (100) 96 I&O Intake and Output 05/06/19 05/07/19 19:00 07:00 Intake Total 675 ml 2225 ml Output Total 1000 ml 1 ml Balance -325 ml 2224 ml Intake Oral 600 ml 600 ml IV Total 75 ml 825 ml Other 800 ml Output Urine Total 1000 ml Stool Total 1 ml # Voids 2 # Bowel Movements 1 Dressing: saturated Wound: other Drains: other Cardiovascular: RSR Respiratory: clear Abdomen: soft, flat, non-tender, present bowel sounds Extremities: no edema, no tenderness, no cyanosis Plan Problems: (1) Sacral decubitus ulcer, stage IV Assessment & Plan: PT presented on admission in grossly unkempt state with multiple pressure injuries. Full thickness stage 4 pressure injury sacrococcygeal area(L)4cm x (W)2.5cm x (D)0.7cm. Biofilm at base of wound and bone is palpable. Additionally, surrounding areas of wound encompassing R and L buttocks and extending into both ischial regions are erythematous -moist with scattered areas of slough and scattered pink epithelial (L)14.5cm x (W)11cm. Full thickness pressure injury R buttocks with 80% slough (L)1.5cm x (W)1cm. Full thickness pressure injury R ischium . Base of wound has 100% slough. (L) (L )2.4cm x (W)3.5cm. Borders and surrounding areas are moist and viable. Tender when minimally palpated. Full thickness pressure injury lateral L tibia .base of wound with mixed eschar and slough . No odor noted .Small amt seropurulent exudate. periwound has darker skin tone with dry, scaly skin.(L)5cm x (W)2cm. Full thickness ulcer lateral L foot . Base of wound 50% viable ,50% slough.Borders are macerated. Periwound dry and flaky without erythema or fluctuance. Tx.Plan. Cleanse sacrococcygeal wound with saline. Apply Therahoney . Apply Moisture Barrier Paste to surrounding buttocks Cover with Optifoam drsg Daily and prn. Cleanse Wound R buttocks with saline. Apply Therahoney. Apply Moisture Barrier periwound. Cover with Optifoam Daily and prn. Cleanse R ischial wound with saline.Apply Therahoney. Apply Moisture Barrier periwound .Cover with Optifoam drsg Daily and prn. Apply Cavilon Skin Barrier to both heels. Cover each heel with Optifoam drsg. Change every 7 days and prn. APM/DESTIN Mattress. Reposition at least every 2hours or as tolerated. Off-load heels with pillow. cont with above care orders upon discharge (2) Abdominal pain Assessment & Plan: leukocytosis resolved abd discomfort resolved KUB with Findings: Severe fecal retention is noted. There is no evidence of abnormal gaseous distention of small bowel loops to suggest small bowel obstruction. Bones are demineralized. Degenerative and chronic changes are noted in the spine and bilateral hips. No acute osseous abnormality.Impression: Findings suggestive of marked rectal fecal retention/impaction. diet as tolerated d/c planning from surgical standpoint will follow with recs thank you Niels Carroll May 07, 2019 12:28
--- NOTE | 2019-05-07 17:25 | General Progress Note ---
Assessment/Plan Assessment/Plan: Urinary tract infection E coli, resolved hypertension, controlled MS, severe multiple wounds constipation on the phone and declined to get off to speak with me awaiting placement wound care, clean and dry dc planning when bed available ready for dc Subjective ROS Limited/Unobtainable: Yes Allergies: Coded Allergies: CEPHALEXIN (Verified Allergy, Unknown, 11/19/09) HYDROMORPHONE (Unverified Allergy, Unknown, 12/27/18) INTERFERON BETA-1B (Verified Allergy, Unknown, 11/01/12) COULDN'T WALK AFTER TAKING MEDICATION NITROFURANTOIN (Verified Allergy, Unknown, 11/19/09) SULFA (SULFONAMIDE ANTIBIOTICS) (Unverified Allergy, Unknown, 12/27/18) SULFAMETHOXAZOLE (Verified Allergy, Unknown, 11/19/09) TRIMETHOPRIM (Verified Allergy, Unknown, 11/19/09) Uncoded Allergies: COTRIM (Allergy, Unknown, 12/27/18) Objective Last 24 Hour Vital Signs Date Time Temp Pulse Resp B/P (MAP) Pulse Ox O2 Delivery O2 Flow Rate FiO2 05/07/19 16:00 98.1 99 18 127/83 (98) 96 05/07/19 12:00 98.4 81 19 128/72 (90) 95 05/07/19 09:52 103 161/94 05/07/19 09:00 Room Air 05/07/19 08:00 97.9 103 19 161/94 (116) 95 05/07/19 04:00 98.2 91 19 137/84 (101) 98 05/07/19 00:00 97.8 96 19 133/67 (89) 97 05/06/19 21:00 Room Air 05/06/19 20:00 98.1 108 19 154/75 (101) 95 05/06/19 17:32 106 144/79 Intake and Output 05/06/19 05/07/19 19:00 07:00 Intake Total 675 ml 2225 ml Output Total 1000 ml 1 ml Balance -325 ml 2224 ml Intake Oral 600 ml 600 ml IV Total 75 ml 825 ml Other 800 ml Output Urine Total 1000 ml Stool Total 1 ml # Voids 2 # Bowel Movements 1 Height (Feet): 5 Height (Inches): 3.00 Weight (Pounds): 137 General Appearance: no apparent distress Will Dunn MD May 07, 2019 17:25
--- NOTE | 2019-05-07 19:34 | NUR ---
NURSE NOTES: Patient in bed, awake, alert and verbally responsive. Able to make needs known. respiration is even and unlabored. No complaint of pain or discomfort at this time. Skin is warm, noted with multiple dressings, intact. IV site noted, Iv fluid is infusing as ordered. Suprapubic cath, noted, intact. Kept clean and comfortable. Provided safe environment. Bed in low and locked position. Call light is at bedside. Frequent visual checks to be done. Will continue plan of care.
--- NOTE | 2019-05-07 19:52 | NUR ---
HAND-OFF: Report given to YOLANDA LUTZ.
--- NOTE | 2019-05-08 00:45 | Progress Note ---
DATE: 05/07/2019 SUBJECTIVE: The patient is presenting with anxiety, withdrawn, depressed mood, low energy. MENTAL STATUS EXAMINATION: The patient is alert and oriented times self and place, did not know the date. Mood is neutral. Affect is flat. Thought process, there is a paucity of thought content. Thought content, no suicidal or homicidal ideation. ASSESSMENT: 1. Dementia. 2. Anxiety disorder. PLAN: 1. We will continue the current medications. 2. Provide the patient with reality orientation. Christie Byrd M.D. DR: Kelsey JOB#: [id number] CC:
[2019-05-08 04:00] VITALS: BP 118/51
--- NOTE | 2019-05-08 07:08 | NUR ---
HAND-OFF: Report given to Aleksandr Kohler.
--- NOTE | 2019-05-08 07:16 | NUR ---
NURSE NOTES: Received report from YOLANDA Beckham. Pt in bed, awake, talkative, no complaints of pain at this time, no apparent respiratory distress noted, pt is calm, and states in comfortable position, bed in lowest position, call light within reach, IV fluids running according to order.
--- NOTE | 2019-05-08 07:49 | Urology Progress Note ---
Assessment/Plan Assessment/Plan: 1. Urinary retention with chronic suprapubic tube. 2. Neurogenic bladder. 3. Pyuria and probable colonized urine with possible UTI. 4. Hematuria. 5. Proteinuria. keep SP tube, last exchanged 05/04 hand irrigated and do PRN position is satisfactory s/p abx consider renal imaging study cysto later Subjective Allergies: Coded Allergies: CEPHALEXIN (Verified Allergy, Unknown, 11/19/09) HYDROMORPHONE (Unverified Allergy, Unknown, 12/27/18) INTERFERON BETA-1B (Verified Allergy, Unknown, 11/01/12) COULDN'T WALK AFTER TAKING MEDICATION NITROFURANTOIN (Verified Allergy, Unknown, 11/19/09) SULFA (SULFONAMIDE ANTIBIOTICS) (Unverified Allergy, Unknown, 12/27/18) SULFAMETHOXAZOLE (Verified Allergy, Unknown, 11/19/09) TRIMETHOPRIM (Verified Allergy, Unknown, 11/19/09) Uncoded Allergies: COTRIM (Allergy, Unknown, 12/27/18) Subjective all noted, new SP tube draining OK Objective Last 24 Hour Vital Signs Date Time Temp Pulse Resp B/P (MAP) Pulse Ox O2 Delivery O2 Flow Rate FiO2 05/08/19 04:00 98.4 96 20 118/51 (73) 99 05/07/19 23:57 98.1 98 18 150/78 (102) 97 05/07/19 21:00 Room Air 05/07/19 20:00 98.3 95 18 141/72 (95) 99 05/07/19 17:26 99 127/83 05/07/19 16:00 98.1 99 18 127/83 (98) 96 05/07/19 12:00 98.4 81 19 128/72 (90) 95 05/07/19 09:52 103 161/94 05/07/19 09:00 Room Air 05/07/19 08:00 97.9 103 19 161/94 (116) 95 Intake and Output 05/07/19 05/08/19 18:59 06:59 Intake Total 800 ml 825 ml Output Total 1800 ml 1000 ml Balance -1000 ml -175 ml IV Total 825 ml Other 800 ml Output Urine Total 1800 ml 1000 ml Microbiology Date/Time Source Procedure Growth Status 04/17/19 14:37 Urine,Clean Catch Urine Culture - Final Escherichia Coli Complete Current Medications Medications (Trade) Dose Ordered Sig/Fransisca Route PRN Reason Start Time Stop Time Status Last Admin Dose Admin Acetaminophen (Tylenol) 650 mg Q6H PRN ORAL pain 1-6 05/01/19 21:30 05/31/19 21:29 05/07/19 09:53 Amlodipine Besylate (Norvasc) 5 mg BID ORAL 04/26/19 18:00 05/17/19 17:59 05/07/19 17:26 Baclofen (Lioresal) 10 mg THREE TIMES A DAY ORAL 04/26/19 18:00 05/17/19 17:59 05/07/19 17:26 Bisacodyl (Dulcolax) 5 mg DAILY ORAL 04/27/19 09:00 05/18/19 08:59 05/07/19 09:52 Diphenhydramine HCl (Benadryl) 25 mg Q8H PRN ORAL Itching 04/26/19 15:00 05/25/19 14:59 04/29/19 09:35 Docusate Sodium (Colace) 100 mg BID ORAL 05/06/19 18:00 06/05/19 17:59 05/07/19 17:26 Heparin Sodium (Porcine) (Heparin 5000 units/ml) 5,000 units EVERY 12 HOURS SUBQ 04/26/19 21:00 05/19/19 20:59 05/07/19 20:19 Magnesium Hydroxide (Mom) 30 ml DAILYPRN PRN ORAL Constipation 05/06/19 12:00 06/05/19 11:59 05/07/19 09:51 Multivitamins (Multivitamins) 1 tab DAILY ORAL 04/27/19 09:00 05/18/19 08:59 05/07/19 09:51 Nystatin (Nystop Powder) 1 applic BID TOPIC 05/03/19 14:00 06/02/19 13:59 05/07/19 17:27 Sodium Chloride 1,000 ml @ 75 mls/hr [id number] IV 04/26/19 15:00 05/19/19 17:59 05/08/19 05:58 Vitamin D (Vitamin D) 1,000 intlu DAILY ORAL 04/27/19 09:00 05/18/19 08:59 05/07/19 09:52 Height (Feet): 5 Height (Inches): 3.00 Weight (Pounds): 137 Objective exam stable SP tube in place, urine yellow with some debris Jah Syed MD May 08, 2019 07:49
[2019-05-08 08:00] VITALS: BP 131/71
[2019-05-08] MEDS: Vitamin D 1000 IU Tab ORAL SCH (08:58)
[2019-05-08] MEDS: Bisacodyl EC 5mg tab ORAL SCH (09:00)
[2019-05-08] MEDS: Nystatin Powder 100,000 units/gm 15gm TOPIC SCH (09:00)
[2019-05-08] MEDS: Docusate 100mg tablet ORAL SCH (09:00)
[2019-05-08] MEDS: Heparin 5000 units/ml inj SUBQ SCH (09:03)
--- NOTE | 2019-05-08 09:39 | NUR ---
RD ASSESSMENT & RECOMMENDATIONS SEE CARE ACTIVITY FOR COMPLETE ASSESSMENT DAILY ESTIMATED NEEDS: Needs based on Wounds, 53.5kg abw 25-30 kcals/kg 7036-2332 total kcals 1.25-1.5 g protein/kg 67-80 g total protein 25-30 mL/kg 0047-7405 total fluid mLs NUTRITION DIAGNOSIS: Increased kcal/prot intake needs R/T wound healing as evidenced by pt admitted w/ full thickness pressure injury at R buttocks, R ischium, lateral L tibia, and lateral L foot. CURRENT DIET:REGULAR + Anival 1pkt BID PO DIET RECOMMENDATIONS: Maintain regular/ texture as tolerated ADDITIONAL RECOMMENDATIONS: * Calibrated bedscale wt for accurate CBW * Wound healing: continue MVI + Anival 1pkt BID : add Vit C 500mg BID, ZnSO4 220mg QD x 10 days * Consider f/up wound care eval .
--- NOTE | 2019-05-08 09:43 | NUR ---
*-* DISCHARGE PLANNING *-* RECEIVED A CALL FROM [facility] PATIENT HAS BEEN ACCEPTED AT [facility] ROOM [id number] THEY WILL SET UP AMBULANCE TRANSPORTATION. [employer] MANAGER REQUESTED TO BE TRANSFERRED TO FLOOR TO COORDINATE THE DISCHARGE WITH NURSE.
--- NOTE | 2019-05-08 09:48 | Surgery Progress Note ---
Surgery Progress Note Subjective Additional Comments no acute events pending placement on phone states she is talking with family. Objective Last 24 Hour Vital Signs Date Time Temp Pulse Resp B/P (MAP) Pulse Ox O2 Delivery O2 Flow Rate FiO2 05/08/19 08:59 96 131/71 05/08/19 08:00 98.1 96 18 131/71 (91) 98 05/08/19 04:00 98.4 96 20 118/51 (73) 99 05/07/19 23:57 98.1 98 18 150/78 (102) 97 05/07/19 21:00 Room Air 05/07/19 20:00 98.3 95 18 141/72 (95) 99 05/07/19 17:26 99 127/83 05/07/19 16:00 98.1 99 18 127/83 (98) 96 05/07/19 12:00 98.4 81 19 128/72 (90) 95 05/07/19 09:52 103 161/94 I&O Intake and Output 05/07/19 05/08/19 18:59 06:59 Intake Total 800 ml 825 ml Output Total 1800 ml 1000 ml Balance -1000 ml -175 ml IV Total 825 ml Other 800 ml Output Urine Total 1800 ml 1000 ml Dressing: saturated Wound: other Drains: other Cardiovascular: RSR Respiratory: clear Abdomen: soft, flat, non-tender, present bowel sounds, non-distended Extremities: no cyanosis, other Plan Problems: (1) Sacral decubitus ulcer, stage IV Assessment & Plan: PT presented on admission in grossly unkempt state with multiple pressure injuries. Full thickness stage 4 pressure injury sacrococcygeal area(L)4cm x (W)2.5cm x (D)0.7cm. Biofilm at base of wound and bone is palpable. Additionally, surrounding areas of wound encompassing R and L buttocks and extending into both ischial regions are erythematous -moist with scattered areas of slough and scattered pink epithelial (L)14.5cm x (W)11cm. Full thickness pressure injury R buttocks with 80% slough (L)1.5cm x (W)1cm. Full thickness pressure injury R ischium . Base of wound has 100% slough. (L) (L )2.4cm x (W)3.5cm. Borders and surrounding areas are moist and viable. Tender when minimally palpated. Full thickness pressure injury lateral L tibia .base of wound with mixed eschar and slough . No odor noted .Small amt seropurulent exudate. periwound has darker skin tone with dry, scaly skin.(L)5cm x (W)2cm. Full thickness ulcer lateral L foot . Base of wound 50% viable ,50% slough.Borders are macerated. Periwound dry and flaky without erythema or fluctuance. Tx.Plan. Cleanse sacrococcygeal wound with saline. Apply Therahoney . Apply Moisture Barrier Paste to surrounding buttocks Cover with Optifoam drsg Daily and prn. Cleanse Wound R buttocks with saline. Apply Therahoney. Apply Moisture Barrier periwound. Cover with Optifoam Daily and prn. Cleanse R ischial wound with saline.Apply Therahoney. Apply Moisture Barrier periwound .Cover with Optifoam drsg Daily and prn. Apply Cavilon Skin Barrier to both heels. Cover each heel with Optifoam drsg. Change every 7 days and prn. APM/DESTIN Mattress. Reposition at least every 2hours or as tolerated. Off-load heels with pillow. cont with above care orders upon discharge (2) Abdominal pain Assessment & Plan: leukocytosis resolved abd discomfort resolved KUB with Findings: Severe fecal retention is noted. There is no evidence of abnormal gaseous distention of small bowel loops to suggest small bowel obstruction. Bones are demineralized. Degenerative and chronic changes are noted in the spine and bilateral hips. No acute osseous abnormality.Impression: Findings suggestive of marked rectal fecal retention/impaction. diet as tolerated needs to eat more d/c planning from surgical standpoint will follow with recs thank you Niels Carroll May 08, 2019 09:48
[2019-05-08 12:00] VITALS: BP 130/72
--- NOTE | 2019-05-08 12:43 | General Progress Note ---
Assessment/Plan Assessment/Plan: Urinary tract infection E coli, resolved hypertension, controlled MS, severe multiple wounds constipation DC IVF awaiting placement wound care, clean and dry dc planning when bed available ready for dc CONSULTANTS CAN SEE PRN Subjective ROS Limited/Unobtainable: Yes Allergies: Coded Allergies: CEPHALEXIN (Verified Allergy, Unknown, 11/19/09) HYDROMORPHONE (Unverified Allergy, Unknown, 12/27/18) INTERFERON BETA-1B (Verified Allergy, Unknown, 11/01/12) COULDN'T WALK AFTER TAKING MEDICATION NITROFURANTOIN (Verified Allergy, Unknown, 11/19/09) SULFA (SULFONAMIDE ANTIBIOTICS) (Unverified Allergy, Unknown, 12/27/18) SULFAMETHOXAZOLE (Verified Allergy, Unknown, 11/19/09) TRIMETHOPRIM (Verified Allergy, Unknown, 11/19/09) Uncoded Allergies: COTRIM (Allergy, Unknown, 12/27/18) Objective Last 24 Hour Vital Signs Date Time Temp Pulse Resp B/P (MAP) Pulse Ox O2 Delivery O2 Flow Rate FiO2 05/08/19 08:59 96 131/71 05/08/19 08:00 98.1 96 18 131/71 (91) 98 05/08/19 04:00 98.4 96 20 118/51 (73) 99 05/07/19 23:57 98.1 98 18 150/78 (102) 97 05/07/19 21:00 Room Air 05/07/19 20:00 98.3 95 18 141/72 (95) 99 05/07/19 17:26 99 127/83 05/07/19 16:00 98.1 99 18 127/83 (98) 96 Intake and Output 05/07/19 05/08/19 19:00 07:00 Intake Total 875 ml 750 ml Output Total 1800 ml 1000 ml Balance -925 ml -250 ml IV Total 75 ml 750 ml Other 800 ml Output Urine Total 1800 ml 1000 ml Height (Feet): 5 Height (Inches): 3.00 Weight (Pounds): 137 General Appearance: no apparent distress Cardiovascular: normal rate Will Dunn MD May 08, 2019 12:43
--- NOTE | 2019-05-08 14:14 | NUR ---
NURSE NOTES: Patient had bed at [facility]. Dr. Dunn notified. New discharge order received.
--- NOTE | 2019-05-08 14:15 | NUR ---
NURSE NOTES: Called to YOLANDA Koenig and YOLANDA Gallegos at [facility]
--- NOTE | 2019-05-08 14:24 | NUR ---
NURSE NOTES:WOUND CARE FOLLOW-UP NOTES:Pt's skin assessed along with primary nurse Melony. Full thickness sacral pressure injury that extends to bilat clefts of buttocks and bilat ischial areas resolving. 100% pink granulation without any measurable depth.Edges flat and adherent to base of wound. No odor or exudate noted. periwound is dry and flaky without erythema or induration. Both heels are boggy ,dry and blanchable. Pressure injury Lateral L foot resolving. Wound is smaller in size .[place] granulation at base of wound. Periwound without erythema or induration .No odor or exudate noted.(L)0.7cvm x (W)0.5cm.Wound Tx orders are effective and continued as ordered . All wound prevention protocols continued as care-planned.
--- NOTE | 2019-05-08 14:34 | NUR ---
ADDENDUM TO ISSACV E WOUND NOTES: MEASUREMENT OF SACRAL WOUND-(l)18CM X (W)14.5CM.
--- NOTE | 2019-05-08 14:55 | NUR ---
NURSE NOTES: Pt discharge to [facility] with all belongings, IV removed intact, ID band removed, pt stable for discharge accompanied by ambulance personnel. left messages for family regarding discharge.
--- NOTE | 2019-05-08 15:31 | NUR ---
Social Service Note SW notified the following of patient's discharge to [facility]: Vice President Network Gretta Carnestara [phone] Forensic APS EBENEZER Glynn Teagan [phone] Det. [place] [phone] Public Guardian of Investigations Yanira Delgado [phone]
--- NOTE | 2019-05-09 00:30 | Progress Note ---
DATE: 05/08/2019 SUBJECTIVE: The patient is having anxiety, cognitive impairment, poor insight. MENTAL STATUS EXAMINATION: Alert, oriented times self, place, and situation. Mood is dysphoric. Affect is constricted, congruent with mood. Thought process is linear. Thought content, no suicidal or homicidal ideation. ASSESSMENT: Stable. PLAN: We will continue current medications. Provide the patient with reality orientation and supportive therapy. Christie Byrd M.D. DR: AMBER JOB#: [id number] CC:
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
== END 2019-05-08 14:43 | DRG 698 ==
LOC: EDBD 12:02 → EMR 12:50 → 4E 13:44 → EDBEDREQ 14:12 → 2E 04-18 11:48 → 4E 04-26 14:48
DX: T83.510A Infection and inflammatory reaction due to cystostomy catheter, initial encounter (principal); L89.154 Pressure ulcer of sacral region, stage 4; G82.50 Quadriplegia, unspecified; G93.41 Metabolic encephalopathy; N39.0 Urinary tract infection, site not specified; Y83.3 Surgical operation with formation of external stoma as the cause of abnormal reaction of the patient, or of later complication, without mention of misadventure at the time of the procedure; G35 Multiple sclerosis; E87.6 Hypokalemia; I10 Essential (primary) hypertension; J45.909 Unspecified asthma, uncomplicated; Z86.73 Personal history of transient ischemic attack (TIA), and cerebral infarction without residual deficits; F03.90 Unspecified dementia, unspecified severity, without behavioral disturbance, psychotic disturbance, mood disturbance, and anxiety; B96.20 Unspecified Escherichia coli [E. coli] as the cause of diseases classified elsewhere; K56.41 Fecal impaction; N31.9 Neuromuscular dysfunction of bladder, unspecified; R31.9 Hematuria, unspecified; Z88.6 Allergy status to analgesic agent; Z88.1 Allergy status to other antibiotic agents; Z88.2 Allergy status to sulfonamides; Z88.8 Allergy status to other drugs, medicaments and biological substances; L89.319 Pressure ulcer of right buttock, unspecified stage; F32.9 Major depressive disorder, single episode, unspecified; F41.9 Anxiety disorder, unspecified
CPT/HCPCS: 36415; 71045; 74018; 80048; 80053; 81001; 81003; 83690; 83735; 83880; 84484; 85025; 85610; 87086; 87181; 93005; 93970; 96372; 99285; J8499